=== PATIENT | female | born 1935 | race Caucasian/White ===

== ENCOUNTER 2018-10-20 01:56 | Outpatient (CLI) | payer MEDICARE, SELFPAY ==
[2018-10-20 08:10] LABS: Anion Gap 12.2 mmol/L (3-11); BUN 14 mg/dL (7-18); CO2 26.8 mmol/L (21.0-32.0); CREATININE 0.78 mg/dL (0.55-1.02); Calcium 8.9 mg/dL (8.5-10.1); Calculated LDL 97 mg/dL; Chloride 99 mmol/L (98-107); Cholesterol 207 mg/dL (50-200); Glucose 93 mg/dL (70-100); HDL Cholesterol 98 mg/dL (40-60); Potassium 4.1 mmol/L (3.5-5.1); Sodium 138 mmol/L (136-145); Triglyceride 63 mg/dL (30-150)
== END 2018-10-20 02:16 ==
PROVIDERS: PCP Internal Medicine; Visit Provider Internal Medicine
DX: I10 Essential (primary) hypertension (principal)
CPT/HCPCS: 36415; 80048; 80061; 83721

== ENCOUNTER 2018-11-21 13:48 | Emergency (ER) | payer MEDICARE, SELFPAY ==
[2018-11-21 13:54] VITALS: BP 120/50; PULSE 68; RESP 16; TEMP 36.5; O2SAT 99
--- NOTE | 2018-11-21 14:27 | W.ED.GENAD ---
Discharge Plan Disposition Patient Disposition: HOME Condition: Stable Discharge Details Chief Complaint: Orthopedic Clinical Impression: Fracture of proximal end of left humerus, Abrasion Primary Care Provider: Sherri Singh ED Provider: Lauryn Lu Home Meds and New Rx's Prescriptions: New tramadol 50 mg tablet 50 mg PO Q6H PRN (Reason: pain) Qty: 7 RF: 0 Continued multivitamin tablet 1 tab PO DAILY RF: 0 omega 2-qje-zsq-fish oil [Fish Oil] 1,000 mg (120 mg-180 mg) capsule 1 cap PO DAILY RF: 0 lecithin 1,200 MG capsule 1,360 mg PO DAILY RF: 0 jkdzlmbf-ffhf-usyuge-hyalur ac 1 EACH capsule 1,500 ea PO DAILY RF: 0 CALCIUM 600+MINERALS TABLET 1 EACH tablet 1 ea PO DAILY RF: 0 cholecalciferol (vitamin D3) 1,000 UNIT tablet 1,000 unit PO DAILY RF: 0 Varicella-Zoster Ge/As01b/Pf [Shingrix Vial Kit] 50 MCG INJ 50 mcg IM ONCE Qty: 1 RF: 1 clopidogrel [Plavix] 75 mg tablet 75 mg PO DAILY Qty: 90 RF: 3 lisinopril 10 mg tablet 10 mg PO DAILY Qty: 90 RF: 3 lovastatin 10 mg tablet 10 mg PO DAILY Qty: 90 RF: 3 Discharge Instructions Instructions: Abrasion (ED), Proximal Humerus Fracture (ED) Additional Instructions: Alternate Tylenol and Aleve as needed and directed for pain. Take the tramadol for pain not relieved with Tylenol or Aleve. Call Dr. Hutchinson on Friday morning to schedule a follow-up appointment for reevaluation within 1 week. Return immediately to the emergency department if you develop any worsening or new concerning symptoms. Referrals: Wolfgang Hutchinson MD [ [facility] STAFF PHYSICIAN] - Discharge Data Discharge Physician: Lauryn Lu Medical Decision Making 83-year-old female with a history of mitral valve prolapse, CVA who presents with left upper back pain that occurred after mechanical fall prior to arrival. She states she also hit her head on an aluminum door but denies any LOC or vomiting, headache, blurry vision or dizziness. She states she is mainly complaining of left upper back and shoulder pain. No evidence of head trauma. C-spine, T-spine, L-spine nontender. No chest or abdomen tenderness. She has tenderness along her entire scapula and left thoracic paraspinal region. No tenderness palpation of her left clavicle, left shoulder, or left upper arm. She is neurovascular intact. No focal deficits. No other extremity injury noted. Will send for left ribs and PA lateral chest as well as left scapula x-ray. Will give a dose of Tylenol. Patient is declining a chaotic pain medication. 1800 --x-rays reviewed and note a proximal humerus fracture. There is possibly a large shoulder joint effusion. X-rays reviewed with Dr. Hutchinson and he is recommending a CT shoulder to assess for dislocation, but likely this appears more consistent with fracture. Rib x-ray and also noted a mildly displaced left anterior 11th rib fracture. Patient had no tenderness palpation of this region so do not suspect fracture. Patient still complaining of some pain. She is refusing any narcotic pain medication. She states she takes Plavix but can occasionally take Aleve. We will give a dose of ibuprofen. 1900 --CT reviewed with Dr. Hutchinson and appears consistent with a subluxation and not dislocation. Recommends patient be placed in a sling and follow-up with him in 1 week. Patient had declined narcotic pain medication here. She did not want stronger narcotic pain medication. She was given a prescription for tramadol if needed. She was advised to call Dr. Hutchinson's office on Friday morning for follow-up and to return here anytime if worse. Medical Records Medical records reviewed: Yes I reviewed the patient's medical records. Imaging Data Radiologic Study: Radiologist's impression: XR Left Ribs EXAM DATE/TIME: 11/21/2018 3:13 PM CLINICAL HISTORY: 83 years old, female; Other: S/P fall onto L side, R/O FX L upper post ribs; Other: S/P fall onto L side, R/O L upper post ribs TECHNIQUE: Imaging protocol: XR Left ribs. Views: 2 views. COMPARISON: No relevant prior studies available. FINDINGS: Bones/joints: There is an acute proximal left humerus fracture present. There is slight irregularity of the left anterior 11th rib consistent with a mildly displaced fracture. Soft tissues: Normal. IMPRESSION: 1. Acute proximal left humerus fracture. Recommend radiographs of the left humerus. 2. Mildly displaced left anterior rib fracture. XR Left Scapula EXAM DATE/TIME: 11/21/2018 3:13 PM CLINICAL HISTORY: 83 years old, female; Other: S/P fall onto L side, R/O fracture TECHNIQUE: Imaging protocol: XR Left scapula, complete. COMPARISON: CR XR ribs LT w PA lat chest 11/21/2018 4:26 PM FINDINGS: Bones/joints: There is a proximal humerus fracture identified with the greater tuberosity is a separate fracture fragment. Recommend followup left humerus views. There is downward displacement of the humeral head in the joint space consistent with probable joint effusion. No definite scapula fractures identified. Soft tissues: Normal. IMPRESSION: Comminuted proximal left humeral fracture with the greater tuberosity is a separate fracture fragment and evidence of a large shoulder joint effusion. Followup radiographs of the left humerus are recommended. CT Left Upper Extremity Without Contrast, Shoulder EXAM DATE/TIME: 11/21/2018 6:21 PM CLINICAL HISTORY: 83 years old, female; Other: Proximal humerus fracture on x-ray; Additional info: Assess for dislocation TECHNIQUE: Imaging protocol: CT of the Left upper extremity without contrast was performed. Exam focused on the shoulder. Coronal and sagittal reformatted images were created and reviewed. Radiation optimization: All CT scans at this facility use at least one of these dose optimization techniques: automated exposure control; mA and/or kV adjustment per patient size (includes targeted exams where dose is matched to clinical indication); or iterative reconstruction. COMPARISON: No relevant prior studies available. FINDINGS: Bones/joints: There is hemarthrosis of the left shoulder joint with a fat fluid level. The effusion is causing downward displacement of the humeral head which is currently anatomically located. There degenerative changes of acromioclavicular joint. There is an impacted focally comminuted fracture of the proximal humerus with the greater tuberosity is a separate fracture fragment. Soft tissues: Normal. IMPRESSION: 1. There is an impacted focally comminuted fracture of the proximal humerus with the greater tuberosity as a separate fracture fragment. 2. There is a moderate to hemarthrosis with a fat fluid level in the joint space. The effusion is causing downward depression of the humeral head which abuts the glenoid labrum without evidence of current anterior/posterior dislocation. HPI General Mode of arrival: ambulatory. Date/Time Provider Initiated Documentation: 11/21/18 14:16. Limitations to Documentation: no limitations. Information obtained by: patient. HPI Narrative: Patient is an 83-year-old female with a history of CVA , high cholesterol, carotid endarterectomy who presents with to the ED with complaint of left upper back and shoulder pain that started after a fall today. Patient states she was walking upstairs when she missed the first step and fell forward hitting her forehead on an aluminum door. She states she then fell backward and hit her left back on a carpeted stair. She states she also sustained an abrasion to her right forearm and right knee but denies any pain in these areas. She denies headache, LOC, vomiting, blurry vision, neck pain, chest pain, abdominal pain. She states she has been able to ambulate after the fall. She has not taken anything for pain. She states her tetanus is up-to-date. Related Data Home Medications Medication Instructions Recorded Confirmed Calcium 600+Minerals Tablet 1 ea PO DAILY 08/20/12 11/21/18 pllqbolu-ijmf-bppbwb-hyalur ac 1,500 ea PO DAILY 08/20/12 11/21/18 lecithin 1,360 mg PO DAILY 08/20/12 11/21/18 cholecalciferol (vitamin D3) 1,000 unit PO DAILY 01/14/17 11/21/18 multivitamin 1 tab PO DAILY 08/25/18 11/21/18 omega 9-uvt-byj-fish oil 1,000 mg 1 cap PO DAILY 08/25/18 11/21/18 (120 mg-180 mg) capsule clopidogrel 75 mg tablet 75 mg PO DAILY #90 tab-cap 11/03/18 11/21/18 lisinopril 10 mg tablet 10 mg PO DAILY #90 tab-cap 11/03/18 11/21/18 lovastatin 10 mg tablet 10 mg PO DAILY #90 tab-cap 11/03/18 11/21/18 tramadol 50 mg PO Q6H PRN #7 tab 11/21/18 Previous Rx's Medication Instructions Recorded clopidogrel 75 mg tablet 75 mg PO DAILY #90 tab-cap 11/03/18 lisinopril 10 mg tablet 10 mg PO DAILY #90 tab-cap 11/03/18 lovastatin 10 mg tablet 10 mg PO DAILY #90 tab-cap 11/03/18 tramadol 50 mg PO Q6H PRN #7 tab 11/21/18 Allergies Allergy/AdvReac Type Severity Reaction Status Date / Time Influenza Virus Vaccines AdvReac sick for 2 Verified 11/21/18 13:58 wks following flu vaccine 02/24/18 General Stated Complaint: Orthopedic BRENDAN: 3 Review of Systems Review of Systems All systems reviewed & are unremarkable except as noted in HPI and below Constitutional Reports as per HPI, Denies chills and Denies fever(s) Eyes Denies blurry vision ENT Denies dizziness, Denies sore throat and Denies throat swelling Cardiovascular Denies chest pain and Denies dyspnea Respiratory Denies cough and Denies dyspnea Gastrointestinal Denies abdominal pain, Denies diarrhea and Denies vomiting Genitourinary Denies hematuria and Denies dysuria Musculoskeletal Denies back pain and Denies numbness Integumentary/Breasts Denies lesions and Denies rash Neurologic Denies dizziness, Denies focal weakness and Denies numbness Allergic/Immunologic Denies throat swelling PFS Medical History CVA (cerebral vascular accident) (Inactive 06/22/14) Essential hypertension (Inactive 07/13/14) Mitral valve prolapse (Inactive 07/11/11) Other and unspecified hyperlipidemia (Inactive 11/19/12) Surgical History Carotid endarterectomy Extraction of cataract (12/21/15) Extraction of cataract (01/04/16) Family History Father Heart disease Mother Stroke Social History Smoking/Tobacco Use Status: Never Alcohol Intake: never Drug use: Never Substance use type: does not use Adopted: No Caregiver/Support person: No Foster care: No Housing: house Number of Children: 2 number of grandchildren: 3 What type of physical activity do you participate in: walking and other Details: weights, squats, leg lifts Duration: 15-30 minutes/day Frequency: 5-6 times per week Working smoke detector in home: Yes Fire extinguisher in home: Yes Carbon monox detector in home: Yes Do you feel safe at home: Yes Victim of physical abuse: No Victim of emotional abuse: No Victim of sexual abuse: No Would you like helpful sources: No Exam Const General: cooperative, healthy appearing and no acute distress [facility] Head: normal to inspection, no palpable skull fracture, normocephalic and atraumatic Ears: hearing grossly normal bilaterally, external ears normal and TM's normal bilaterally General nose exam: external nose normal Face and sinus: normal facial exam Eyes General: appearance normal, both eyes and all related structures Pupils: PERRL EOM: EOM intact bilaterally Neck Neck: normal visual inspection and No submandibular swelling Lymphatic: no lymphadenopathy noted Chest Chest: normal inspection of the chest and no tenderness Resp Effort & Inspection: normal respiratory effort and able to speak in complete sentences Auscultation: clear to auscultation bilaterally Cardio Rate: regular rate Rhythm: regular rhythm GI Inspection: normal to inspection and no abdominal wall ecchymosis Palpation: soft, not firm, not rigid and nontender Auscultation: normal bowel sounds Back/Spine/Pelvis Cervical Spine: No cervical spinal tenderness Thoracic/Lumbar Spine: thoracic and lumbar spine normal to inspection, No thoracic spinal tenderness and No lumbar spinal tenderness Pelvis: no pain with anterior-posterior compression Skin General skin exam: no rashes or lesions noted Neuro General: alert, awake and oriented x3 Cognition: normal cognition Speech: speech normal Motor: muscle tone normal throughout Sensory Exam: no sensory deficits noted Extrem General: normal to inspection, full ROM, normal capillary refill, no calf tenderness bilaterally and no edema Shoulder/upper arm images: 1. Tenderness palpation along superior scapula, mid scapula as well as left thoracic paraspinal region. Other: No tenderness palpation of left anterior, lateral or posterior shoulder. No tenderness palpation of left upper arm. Remainder of left upper, right upper extremity as well as bilateral lower extremities within normal limits and without pain. 5 cm superficial abrasion noted to right medial forearm. No other bony deformity noted. 2 x 2 centimeter superficial abrasion noted to right anterior knee but no pain with range of motion or bony deformity. No ligamentous instability. Psych Appearance: grossly normal Mental Status: mental status grossly normal Speech and Movement: speech and movement normal Affect: normal affect Course Vital Signs Temperature 97.7 F 11/21/18 13:54 Pulse 68 11/21/18 13:54 Respiratory Rate 16 11/21/18 13:54 Blood Pressure 120/50 L 11/21/18 13:54 Pulse Oximetry 99 11/21/18 13:54 Temperature 97.7 F 11/21/18 13:54 Temperature Source Skin 11/21/18 13:54 Pulse 68 11/21/18 13:54 Respiratory Rate 16 11/21/18 13:54 Respiratory Effort Non-Labored 11/21/18 13:56 Blood Pressure 120/50 L 11/21/18 13:54 Pulse Oximetry 99 11/21/18 13:54 Pain Level 10 11/21/18 13:54 \
--- NOTE | 2018-11-21 15:11 | DI.RAD_ITS ---
SYMPTOMS/DIAGNOSIS: S/P FALL ONTO LT SIDE, ? FRACTURE LT UPPER POST RIBS LEFT RIBS: There is a question of nondisplaced fractures of the left tenth and eleventh ribs. No pneumothorax is seen. LEFT SCAPULA: There is a fracture of the proximal humerus which shows some comminution. The humeral head appears inferiorly positioned relative to the glenoid. There is also question of some deformity of the glenoid. The AC joint and clavicle appear intact. IMPRESSION: Proximal humeral fracture with question of dislocation vs subluxation.
[2018-11-21] MEDS: Acetaminophen 500 MG TAB 1000 MG PO (15:37)
--- NOTE | 2018-11-21 17:59 | DI.VRAD_ITS ---
EXAM: XR Left Scapula EXAM DATE/TIME: 11/21/2018 3:13 PM CLINICAL HISTORY: 83 years old, female; Other: S/P fall onto L side, R/O fracture TECHNIQUE: Imaging protocol: XR Left scapula, complete. COMPARISON: CR XR ribs LT w PA lat chest 11/21/2018 4:26 PM FINDINGS: Bones/joints: There is a proximal humerus fracture identified with the greater tuberosity is a separate fracture fragment. Recommend followup left humerus views. There is downward displacement of the humeral head in the joint space consistent with probable joint effusion. No definite scapula fractures identified. Soft tissues: Normal. IMPRESSION: Comminuted proximal left humeral fracture with the greater tuberosity is a separate fracture fragment and evidence of a large shoulder joint effusion. Followup radiographs of the left humerus are recommended. Dictated and Authenticated by: Doni Gordon MD. Ordering:MICHAEL Combs MD
--- NOTE | 2018-11-21 18:08 | DI.VRAD_ITS ---
EXAM: XR Left Ribs EXAM DATE/TIME: 11/21/2018 3:13 PM CLINICAL HISTORY: 83 years old, female; Other: S/P fall onto L side, R/O FX L upper post ribs; Other: S/P fall onto L side, R/O L upper post ribs TECHNIQUE: Imaging protocol: XR Left ribs. Views: 2 views. COMPARISON: No relevant prior studies available. FINDINGS: Bones/joints: There is an acute proximal left humerus fracture present. There is slight irregularity of the left anterior 11th rib consistent with a mildly displaced fracture. Soft tissues: Normal. IMPRESSION: 1. Acute proximal left humerus fracture. Recommend radiographs of the left humerus. 2. Mildly displaced left anterior rib fracture. Dictated and Authenticated by: Doni Gordon MD. Ordering:MICHAEL Combs MD
--- NOTE | 2018-11-21 18:19 | DI.CT_ITS ---
SYMPTOMS/DIAGNOSIS: PROXIMAL HUMERUS FRACTURE ON X-RAY CT OF THE LEFT SHOULDER: There is a fracture of the proximal humerus of the surgical neck. There is also comminution involving the greater tuberosity. There is some impaction of the fracture. The bones appear osteoporotic. There is inferior subluxation of the humeral head but no evidence of nena dislocation. There is some sclerosis of the glenoid which is degenerative. No glenoid fracture is seen. A hemarthrosis is noted. No pneumothorax is seen at the visualized portions of the lungs. IMPRESSION: Comminuted fracture of the proximal humerus with inferior subluxation of the humeral head.
[2018-11-21] MEDS: Ibuprofen 600 MG TAB PO (18:34)
--- NOTE | 2018-11-21 19:06 | DI.VRAD_ITS ---
EXAM: CT Left Upper Extremity Without Contrast, Shoulder EXAM DATE/TIME: 11/21/2018 6:21 PM CLINICAL HISTORY: 83 years old, female; Other: Proximal humerus fracture on x-ray; Additional info: Assess for dislocation TECHNIQUE: Imaging protocol: CT of the Left upper extremity without contrast was performed. Exam focused on the shoulder. Coronal and sagittal reformatted images were created and reviewed. Radiation optimization: All CT scans at this facility use at least one of these dose optimization techniques: automated exposure control; mA and/or kV adjustment per patient size (includes targeted exams where dose is matched to clinical indication); or iterative reconstruction. COMPARISON: No relevant prior studies available. FINDINGS: Bones/joints: There is hemarthrosis of the left shoulder joint with a fat fluid level. The effusion is causing downward displacement of the humeral head which is currently anatomically located. There degenerative changes of acromioclavicular joint. There is an impacted focally comminuted fracture of the proximal humerus with the greater tuberosity is a separate fracture fragment. Soft tissues: Normal. IMPRESSION: 1. There is an impacted focally comminuted fracture of the proximal humerus with the greater tuberosity as a separate fracture fragment. 2. There is a moderate to hemarthrosis with a fat fluid level in the joint space. The effusion is causing downward depression of the humeral head which abuts the glenoid labrum without evidence of current anterior/posterior dislocation. Dictated and Authenticated by: Doni Gordon MD. Ordering:MICHAEL Combs MD
[2018-11-21 22:26] VITALS: BP 120/50; PULSE 68; RESP 16; O2SAT 99
== END 2018-11-21 20:27 | disposition home or self-care (01) ==
PROVIDERS: Emergency Provider Physician Assistant; PCP Internal Medicine
DX: S42.252A Displaced fracture of greater tuberosity of left humerus, initial encounter for closed fracture (principal); S43.032A Inferior subluxation of left humerus, initial encounter; S80.211A Abrasion, right knee, initial encounter; S50.811A Abrasion of right forearm, initial encounter; W10.8XXA Fall (on) (from) other stairs and steps, initial encounter; M54.6 Pain in thoracic spine; I10 Essential (primary) hypertension
CPT/HCPCS: 99284; 71100; 73010; 73200; 99285; L3650

== ENCOUNTER 2018-12-01 10:10 | Outpatient (CLI) | payer MEDICARE, SELFPAY ==
--- NOTE | 2018-12-01 09:52 | DI.RAD_ITS ---
SYMPTOM/DIAGNOSIS: F/U HUMERAL FRACTURE LEFT SHOULDER: 12/01 Three views were obtained. The previously described fracture of the humeral head is again noted with increasing inferior subluxation vs dislocation in comparison with previous examination of 11/21/18.
== END 2018-12-01 10:30 ==
PROVIDERS: PCP Internal Medicine; Referring Provider Internal Medicine; Visit Provider Orthopaedic Surgery
DX: S42.202A Unspecified fracture of upper end of left humerus, initial encounter for closed fracture (principal); W10.8XXA Fall (on) (from) other stairs and steps, initial encounter
CPT/HCPCS: 99203; 99213; 99214; 73030

== ENCOUNTER 2018-12-22 12:47 | Outpatient (CLI) | payer MEDICARE, SELFPAY ==
--- NOTE | 2018-12-22 09:03 | DI.RAD_ITS ---
SYMPTOM/DIAGNOSIS: F/U FRACTURE LEFT SHOULDER: Comparison is made with 21 November 2018 and . A comminuted fracture of the humeral head is again noted. The humeral head is again noted to be situated beneath the glenoid, unchanged from the previous exam.
== END 2018-12-22 13:07 ==
PROVIDERS: PCP Internal Medicine; Referring Provider Internal Medicine; Visit Provider Orthopaedic Surgery
DX: S42.202A Unspecified fracture of upper end of left humerus, initial encounter for closed fracture (principal); X58.XXXA Exposure to other specified factors, initial encounter
CPT/HCPCS: 99213; 73030

== ENCOUNTER 2019-01-19 09:48 | Outpatient (CLI) | payer MEDICARE, SELFPAY ==
--- NOTE | 2019-01-19 09:11 | DI.RAD_ITS ---
EXAM: XR SHOULDER LT COMPLETE 2+V INDICATION: f/u. COMPARISON: XR shoulder LT complete 2+V from 12/22/2018 TECHNIQUE: 2D digital imaging was performed. FINDINGS: There is again seen a comminuted fracture of the proximal left humerus. There is no change in alignm ent of the fracture. There has been slight improvement in the degree of inferior subluxation of the humeral head relative to the glenoid since the prior examination. No new fractures or dislocations a re present. The bones are osteopenic. There are degenerative changes seen at the acromioclavicular joint.
== END 2019-01-19 10:08 ==
PROVIDERS: PCP Internal Medicine; Referring Provider Internal Medicine; Visit Provider Orthopaedic Surgery
DX: S42.202A Unspecified fracture of upper end of left humerus, initial encounter for closed fracture (principal); M85.88 Other specified disorders of bone density and structure, other site; X58.XXXA Exposure to other specified factors, initial encounter
CPT/HCPCS: 99213; 73030

== ENCOUNTER 2019-02-16 09:11 | Outpatient (CLI) | payer MEDICARE, SELFPAY ==
--- NOTE | 2019-02-16 08:47 | DI.RAD_ITS ---
EXAM: XR SHOULDER LT COMPLETE 2+V INDICATION: f/u of left proximal humerus fracture. COMPARISON: No exams were available for comparison TECHNIQUE: 2D digital imaging was performed. FINDINGS: There has been continued healing of the proximal left humeral fracture. No change in alignment of th e fracture components is noted. There is persistent inferior subluxation of the humeral head relativ e to the glenoid. This appears to have improved somewhat compared to the prior examination. No new fractures or dislocations are present. Degenerative changes are seen at the left shoulder. The bone s are osteopenic. IMPRESSION: Healing proximal left humeral fracture. Slight improvement in the inferior subluxation of the kassandra l head relative to the glenoid.
== END 2019-02-16 09:31 ==
PROVIDERS: PCP Internal Medicine; Referring Provider Internal Medicine; Visit Provider Orthopaedic Surgery
DX: S42.202D Unspecified fracture of upper end of left humerus, subsequent encounter for fracture with routine healing (principal); X58.XXXD Exposure to other specified factors, subsequent encounter
CPT/HCPCS: 99213; 73030

== ENCOUNTER 2019-11-02 04:28 | Outpatient (CLI) | payer MEDICARE, SELFPAY ==
[2019-11-02 07:30] LABS: HCT 38.1 % (36.0-46.0); Mean Corp. HGB Concentration 34.1 g/dL (32.0-36.0); Mean Corpuscular Volume 87.8 fL (80-95); Mean Platelet Volume 9.8 fL (8.0-11.0); Platelet Count 220 x1000/uL (130-400); RBC 4.34 m/cumm (4.00-5.20); RBC Distribution Width 12.8 % (11.7-14.6); White Blood Cell Count 4.14 k/cumm (4.4-10.8)
[2019-11-02 08:25] LABS: Anion Gap 8.4 mmol/L (3-11); BUN 13 mg/dL (7-18); CO2 27.6 mmol/L (21.0-32.0); CREATININE 0.85 mg/dL (0.55-1.02); Calcium 8.9 mg/dL (8.5-10.1); Calculated LDL 108 mg/dL (<100); Chloride 96 mmol/L (98-107); Cholesterol 213 mg/dL (<200); Glucose 98 mg/dL (74-106); HDL Cholesterol 91 mg/dL (40-60); Potassium 4.4 mmol/L (3.5-5.1); Sodium 132 mmol/L (136-145); TSH 7.64 uIU/mL (0.36-3.74); Triglyceride 73 mg/dL (<150); Vitamin B12 677 pg/mL (193-986)
== END 2019-11-02 04:48 ==
PROVIDERS: PCP Internal Medicine; Visit Provider Internal Medicine
DX: E78.00 Pure hypercholesterolemia, unspecified (principal); R23.1 Pallor; F41.9 Anxiety disorder, unspecified; I10 Essential (primary) hypertension
CPT/HCPCS: 36415; 80048; 80061; 85027; 82607; 84443

== ENCOUNTER 2020-01-11 02:28 | Outpatient (CLI) | payer MEDICARE, MEDICAID, SELFPAY ==
[2020-01-11 09:05] LABS: TSH (W/Ref FT4) 2.73 uIU/mL (0.36-3.74)
== END 2020-01-11 02:48 ==
PROVIDERS: PCP Internal Medicine; Visit Provider Internal Medicine
DX: E03.9 Hypothyroidism, unspecified (principal)
CPT/HCPCS: 36415; 84443

== ENCOUNTER 2020-10-13 02:29 | Outpatient (CLI) | payer MEDICARE, MEDICAID, SELFPAY ==
[2020-10-13 08:40] LABS: BUN 14 mg/dL (7-18); CREATININE 0.7 mg/dL (0.55-1.02); Calcium 8.9 mg/dL (8.5-10.1); Calculated LDL 90 mg/dL (<100); Chloride 98 mmol/L (98-107); Cholesterol 201 mg/dL (<200); Glucose 94 mg/dL (74-106); HDL Cholesterol 100 mg/dL (40-60); Potassium 4.2 mmol/L (3.5-5.1); Sodium 133 mmol/L (136-145); TSH 3.41 uIU/mL (0.36-3.74); Triglyceride 55 mg/dL (<150); Vitamin B12 668 pg/mL (193-986)
== END 2020-10-13 02:30 | disposition home or self-care (01) ==
LOC: LBO 02:29
PROVIDERS: PCP Internal Medicine; Visit Provider Internal Medicine
DX: I10 Essential (primary) hypertension (principal); E78.00 Pure hypercholesterolemia, unspecified; R53.83 Other fatigue
CPT/HCPCS: 36415; 80048; 80061; 82607; 84443

== ENCOUNTER 2021-09-07 02:05 | Outpatient (CLI) | payer MEDICARE, MEDICAID, SELFPAY ==
[2021-09-07 09:09] LABS: Anion Gap 8.9 mmol/L (3-11); BUN 13 mg/dL (7-18); CO2 29.1 mmol/L (21.0-32.0); CREATININE 0.8 mg/dL (0.55-1.02); Calcium 8.8 mg/dL (8.5-10.1); Calculated LDL 103 mg/dL (<100); Chloride 97 mmol/L (98-107); Cholesterol 226 mg/dL (<200); Glucose 92 mg/dL (74-106); HDL Cholesterol 113 mg/dL (40-60); Potassium 4.4 mmol/L (3.5-5.1); Sodium 135 mmol/L (136-145); TSH 3.49 uIU/mL (0.36-3.74); Triglyceride 51 mg/dL (<150)
== END 2021-09-07 02:06 | disposition home or self-care (01) ==
LOC: LBO 02:06
PROVIDERS: PCP Internal Medicine; Referring Provider Internal Medicine; Visit Provider Internal Medicine
DX: I10 Essential (primary) hypertension (principal); E78.00 Pure hypercholesterolemia, unspecified; E03.9 Hypothyroidism, unspecified
CPT/HCPCS: 36415; 80048; 80061; 84443

== ENCOUNTER 2022-09-13 01:42 | Outpatient (CLI) | payer MEDICARE, MEDICAID, SELFPAY ==
[2022-09-13 07:56] LABS: Anion Gap 8.5 mmol/L (3-11); BUN 12 mg/dL (7-18); CO2 28.5 mmol/L (21.0-32.0); CREATININE 0.7 mg/dL (0.55-1.02); Calculated LDL 113 mg/dL (<100); Chloride 90 mmol/L (98-107); Cholesterol 251 mg/dL (<200); Estimated GFR 84.17 (mL/min/1.73m2); Glucose 102 mg/dL (74-106); HDL Cholesterol 129 mg/dL (40-60); Potassium 3.7 mmol/L (3.5-5.1); Sodium 127 mmol/L (136-145); TSH (W/Ref FT4) 4.22 uIU/mL (0.36-3.74); Triglyceride 46 mg/dL (<150)
[2022-09-13 08:14] LABS: FREE T4 1.08 ng/dL (0.76-1.46)
== END 2022-09-13 01:43 | disposition home or self-care (01) ==
LOC: LBO 01:42
PROVIDERS: PCP Nurse Practitioner Adult Health; Visit Provider Nurse Practitioner Adult Health
DX: E03.9 Hypothyroidism, unspecified (principal); I10 Essential (primary) hypertension
CPT/HCPCS: 36415; 80048; 80061; 84439; 84443

== ENCOUNTER 2022-09-23 09:09 | Outpatient (REF) | payer MEDICARE, MEDICAID, SELFPAY ==
[2022-09-23 17:41] LABS: Anion Gap 6.7 mmol/L (3-11); BUN 13 mg/dL (7-18); CO2 29.3 mmol/L (21.0-32.0); CREATININE 0.7 mg/dL (0.55-1.02); Chloride 91 mmol/L (98-107); Estimated GFR 84.17 (mL/min/1.73m2); Glucose 87 mg/dL (74-106); Potassium 4.5 mmol/L (3.5-5.1); Sodium 127 mmol/L (136-145)
== END 2022-09-23 09:10 | disposition home or self-care (01) ==
LOC: LBN 09:09
PROVIDERS: PCP Nurse Practitioner Adult Health; Visit Provider Nurse Practitioner Adult Health
DX: E87.1 Hypo-osmolality and hyponatremia (principal)
CPT/HCPCS: 80048

== ENCOUNTER 2022-11-03 07:16 | Observation (INO) | payer MEDICARE, MEDICAID, SELFPAY ==
[2022-11-03] VITALS (62 sets, daily range): BP systolic 44–229; BP diastolic 17–95; PULSE 63–100; RESP 12–38; TEMP 36.2–37.3; O2SAT 91–99
--- NOTE | 2022-11-03 07:30 | RT.EKG_ITS ---
APPROVED REPORT Exam: Resting ECG Reason for Exam: GI BLEED Patient Location: E HR:69 bpm ECG Measurements Heart Rate 69 AXIS TX 155 P -8 QRSd 107 QRS -49 QT 430 T 51 QTc 460 Conclusion Sinus rhythm was sinus arrhythmia Rate 60's-70's appropriate intervals LVH with secondary repolarization abnormality no ST segement or T wave abnormalities to suggest occlusive [place]
[2022-11-03] MEDS: Normal Saline 1,000 ML 1000 ML IV (07:53)
[2022-11-03 08:01] LABS: Abs Immature Grans 0.01 10^3/uL (0.0-0.06); Absolute Basophil Count 0.02 10^3/uL (0.0-0.2); Absolute Eosinophil Count 0.07 10^3/uL (0.0-0.7); Absolute Monocyte Count 0.36 10^3/uL (0.1-0.8); Absolute Neutrophil Count 2.39 10^3/uL (1.2-6.7); Basophils % 0.5; Eosinophils % 1.8; HCT 35.4 % (36.0-46.0); HGB 12.1 g/dL (11.2-15.7); Immature Grans % 0.3; Lymphocytes % 27.8; MCH 30.6 pg (27.0-33.0); MCHC 34.2 % (32.0-36.0); MCV 90 fL (80-95); MPV 9.5 fL (8.0-11.0); Monocytes % 9.1; Neutrophils % 60.5; Platelet Count 214 10^3/uL (130-400); RBC 3.95 10^6/uL (3.93-5.22); RDW 12.9 % (11.7-14.6); RDW-SD 42.6 fL; WBC 3.95 10^3/uL (4.4-10.8)
[2022-11-03 08:13] LABS: INR 0.9 (0.9-1.1); PTT Activated 33.1 sec (21.5-31.9); Prothrombin Time 9.5 sec (9.3-11.0)
[2022-11-03 08:20] LABS: ALT 27 U/L (14-59); AST 35 U/L (15-37); Albumin 3.7 g/dL (3.4-5.0); Alkaline Phosphatase 96 U/L (46-116); Anion Gap 8.1 mmol/L (3-11); BUN 11 mg/dL (7-18); Bilirubin, Total 0.7 mg/dL (0.2-1.0); CO2 27.9 mmol/L (21.0-32.0); CREATININE 0.8 mg/dL (0.55-1.02); Calcium 8.8 mg/dL (8.5-10.1); Chloride 100 mmol/L (98-107); Estimated GFR 71.27 (mL/min/1.73m2); Glucose 100 mg/dL (74-106); Magnesium 1.7 mg/dL (1.8-2.4); Sodium 136 mmol/L (136-145); Total Protein 6.8 g/dL (6.4-8.2)
--- NOTE | 2022-11-03 09:15 | DI.CT_ITS ---
Exam(s) CT ABDOMEN PELVIS W EXAM: CT ABDOMEN PELVIS W CLINICAL HISTORY: bright red blood PA, mild LLQ tenderness. TECHNIQUE: Imaging Protocol: Axial computed tomography images with coronal and sagittal reformatted images were created and reviewed CONTRAST MATERIAL: Intravenous: Omnipaque-350 100cc Oral: None COMPARISON: No exams were available for comparison FINDINGS: VISUALIZED LUNG BASES: Small left pleural effusion.. Heavy calcification of the mitral valve annulus . No pericardial effusion. ABDOMEN: There is no ascites. LIVER: There are no focal hepatic lesions evident. No dilated intrahepatic ducts. GALLBLADDER/BILIARY: No obvious gallbladder pathology. CBD is not dilated. PANCREAS: No evidence of pancreatic mass nor dilatation of the pancreatic duct. SPLEEN: Spleen is not enlarged. No obvious intrasplenic lesions. Splenic and portal veins are paten t. ADRENALS: There are no significant adrenal masses. KIDNEYS:No cysts evident. No solid renal masses. No calculi nor hydronephrosis.. ABDOMINAL AORTA: Abdominal aorta is calcified but not enlarged. Retroaortic left renal vein noted, s een approximately 5 percent of the general population. LYMPH NODES:There is no retroperitoneal nor paraaortic adenopathy. ABDOMINAL WALL: No evidence of significant anterior abdominal wall nor inguinal hernia. GI: There is no evidence of bowel obstruction, free air, nor abscess. PELVIS: GI: No evidence of appendicitis.Extensive sigmoid diverticulosis. No obvious acute diverticulitis. No free fluid. LYMPH NODES: There is no intrapelvic nor inguinal adenopathy. REPRODUCTIVE: Atrophic uterus. No obvious adnexal masses. URINARY BLADDER: No calculi nor obvious masses evident OSSEOUS: No fractures and no significant osseous lesions. Multilevel chronic degenerative disc disease. IMPRESSION: 1. Sigmoid diverticulosis. No obvious acute diverticulitis. 2. Small left pleural effusion. RADIATION DOSE DELIVERED: 559.76mGy.cm Total DLP DATA REPOSITORY: All CT scans at this facility are submitted to the National Radiology Data Registry (NRDR) Dose Index Registry (DIR) with the [employer] (A[employer]). RADIATION OPTIMIZATION: All CT scans at this facility use at least one of these dose optimization te chniques: automated exposure control; mA and/or kV adjustment per patient size (includes targeted exa ms where dose is matched to clinical indication); or iterative reconstruction.
--- NOTE | 2022-11-03 09:22 | W.ED.GENAD ---
Discharge Plan Disposition Patient Disposition: Admit to [facility] Condition: Stable Discharge Details Clinical Impression: Acute GI bleeding Primary Care Provider: Kaci Leigh ED Provider: Cherry Curtis Home Meds and New Rx's Prescriptions: No Action multivitamin tablet 1 tab PO DAILY omega 6-bdu-rnu-fish oil [Fish Oil] 1,000 mg (120 mg-180 mg) capsule 1 cap PO DAILY (DME) Pill Splitter See Rx Instructions .Route .MEDSUPPLY Qty: 1 2RF Rx Instructions: Please dispense to use to cut pills in half. levothyroxine 25 mcg tablet 25 mcg PO DAILY Qty: 90 3RF Rx Instructions: Take on an empty stomach 30-min prior to other meds/food lisinopril 10 mg tablet 10 mg PO DAILY Qty: 90 0RF Rx Instructions: New RX for BP 09/23/2022 lecithin 1,200 MG capsule 1,360 mg PO DAILY qanxtfom-qtbq-fporhi-hyalur ac 1 EACH capsule 1,500 ea PO DAILY CALCIUM 600+MINERALS TABLET 1 EACH tablet 1 ea PO DAILY cholecalciferol (vitamin D3) 1,000 UNIT tablet 1,000 unit PO DAILY clopidogrel [Plavix] 75 mg tablet 37.5 mg PO DAILY MDD 75mg/24h Qty: 90 3RF Medical Decision Making 87yo F on eliquis for prior CVA, hx of HTN, hyperthyroid, presenting for bright red blood per rectum x 1 day. No nausea, vomiting, or abdominal pain. Transient lightheadedness while on the toilet, since resolved. Vital signs and physical exam reassuring, minimal LLQ abdominal tenderness with no rebound or guarding. Is hypertensive, will give home medications. Labs reviewed, CBC & CMP reassuring, Hg 12.1 at this time. Would not transfuse. Low suspicion for surgical intraabdominal process, suspect likely lower GI bleed. CT independently reviewed, agree with teleradiology read, diverticulosis. On reassessment she remains well appearing, no tachycardia or hypotension, no further bleeding. Given age, anticoaulation, and high risk for decompensation should she re-bleed, warrants overnight observation. Surgery consulted for possible colonoscopy, accepted to medicine service and awaiting transfer to the floor. Imaging Data Radiologic Study: Radiologist's impression: 1. SIgmoid colon diverticulosis. Mild constipation 2. bilateral small pleural effusions 3. complete atelectasis left lower lobe 4. nodular thickening adrenal glands. Lab Data Lab results reviewed: Yes I reviewed the patient's lab results. Lab results narrative: Laboratory Tests Range/Units 11/03/22 11/03/22 11/03/22 07:47 07:47 07:47 WBC (4.4-10.8) 10^3/uL 3.95 L RBC (3.93-5.22) 10^6/uL 3.95 Hgb (11.2-15.7) g/dL 12.1 Hct (36.0-46.0) % 35.4 L MCV (80-95) fL 90 MCH (27.0-33.0) pg 30.6 MCHC (32.0-36.0) % 34.2 RDW (11.7-14.6) % 12.9 Plt Count (130-400) 10^3/uL 214 MPV (8.0-11.0) fL 9.5 Immature Gran % 0.3 Neutrophils % 60.5 Lymphocytes % 27.8 Monocytes % 9.1 Eosinophils % 1.8 Basophils % 0.5 Nucleated RBC % (0.0-0.3) % 0.0 Absolute Neutrophils (1.2-6.7) 10^3/uL 2.39 Absolute Lymphocytes (1.2-3.4) 10^3/uL 1.10 L Absolute Monocytes (0.1-0.8) 10^3/uL 0.36 Absolute Eosinophils (0.0-0.7) 10^3/uL 0.07 Absolute Basophils (0.0-0.2) 10^3/uL 0.02 PT (9.3-11.0) sec INR (0.9-1.1) APTT Cancelled Sodium (136-145) mmol/L 136 Potassium (3.5-5.1) mmol/L 4.0 Chloride (98-107) mmol/L 100 Carbon Dioxide (21.0-32.0) mmol/L 27.9 Anion Gap (3-11) mmol/L 8.1 BUN (7-18) mg/dL 11 Creatinine (0.55-1.02) mg/dL 0.8 Est GFR (CKD-EPI 2020) (mL/min/1.73m2) 71.27 Glucose (74-106) mg/dL 100 Calcium (8.5-10.1) mg/dL 8.8 Magnesium (1.8-2.4) mg/dL 1.7 L Total Bilirubin (0.2-1.0) mg/dL 0.7 AST (15-37) U/L 35 ALT (14-59) U/L 27 Alkaline Phosphatase (46-116) U/L 96 Total Protein (6.4-8.2) g/dL 6.8 Albumin (3.4-5.0) g/dL 3.7 Patient ABO/Rh Antibody Screen Range/Units 11/03/22 11/03/22 07:47 07:47 WBC (4.4-10.8) 10^3/uL RBC (3.93-5.22) 10^6/uL Hgb (11.2-15.7) g/dL Hct (36.0-46.0) % MCV (80-95) fL MCH (27.0-33.0) pg MCHC (32.0-36.0) % RDW (11.7-14.6) % Plt Count (130-400) 10^3/uL MPV (8.0-11.0) fL Immature Gran % Neutrophils % Lymphocytes % Monocytes % Eosinophils % Basophils % Nucleated RBC % (0.0-0.3) % Absolute Neutrophils (1.2-6.7) 10^3/uL Absolute Lymphocytes (1.2-3.4) 10^3/uL Absolute Monocytes (0.1-0.8) 10^3/uL Absolute Eosinophils (0.0-0.7) 10^3/uL Absolute Basophils (0.0-0.2) 10^3/uL PT (9.3-11.0) sec 9.5 INR (0.9-1.1) 0.9 APTT 33.1 H Sodium (136-145) mmol/L Potassium (3.5-5.1) mmol/L Chloride (98-107) mmol/L Carbon Dioxide (21.0-32.0) mmol/L Anion Gap (3-11) mmol/L BUN (7-18) mg/dL Creatinine (0.55-1.02) mg/dL Est GFR (CKD-EPI 2020) (mL/min/1.73m2) Glucose (74-106) mg/dL Calcium (8.5-10.1) mg/dL Magnesium (1.8-2.4) mg/dL Total Bilirubin (0.2-1.0) mg/dL AST (15-37) U/L ALT (14-59) U/L Alkaline Phosphatase (46-116) U/L Total Protein (6.4-8.2) g/dL Albumin (3.4-5.0) g/dL Patient ABO/Rh A Negative Antibody Screen NEGATIVE HPI General Date/Time Provider Initiated Documentation: 11/03/22 07:30. Limitations to Documentation: no limitations. Information obtained by: patient and family. HPI Narrative: 87yo F on eliquis, hx of HTN, hyperthyroid, presenting for bright red blood per rectum. This morning had three bowel movements with bright red blood, multiple grape-sized clots. Manter lightheaded at the time, this has since resolved. No prior history of this in the past. No abdominal pain, nausea, or vomiting. Normal BM yesterday. Ambulated to the bathroom in the ED with no further bleeding and no lightheadedness. She is otherwise in her usual state of health with no fevers, chills, rash, dysuria, hematuria, chest pain, shortness of breath, or other concerns. Related Data Home Medications Medication Instructions Recorded Confirmed Calcium 600+Minerals Tablet 1 ea PO DAILY 08/20/12 11/03/22 glucosamin 375 mg-chond 300 1,500 ea PO DAILY 08/20/12 11/03/22 mg-collagen 50 mg-hyaluronic acid 2 mg cap lecithin 1,200 mg capsule 1,360 mg PO DAILY 08/20/12 11/03/22 cholecalciferol (vitamin D3) 25 1,000 unit PO DAILY 01/14/17 11/03/22 mcg (1,000 unit) tablet multivitamin 1 tab PO DAILY 08/25/18 11/03/22 omega 0-irh-ohr-fish oil 1,000 mg 1 cap PO DAILY 08/25/18 11/03/22 (120 mg-180 mg) capsule (Fish Oil) Pill Splitter #1 ea 02/05/22 11/03/22 levothyroxine 25 mcg tablet 25 mcg PO DAILY #90 tabs 09/23/22 11/03/22 lisinopril 10 mg tablet 10 mg PO DAILY #90 tabs 09/23/22 11/03/22 clopidogrel 75 mg tablet (Plavix) 37.5 mg PO DAILY patient decreased 10/16/22 11/03/22 dose 02/06/22 #90 tab-caps Previous Rx's Medication Instructions Recorded Pill Splitter #1 ea 02/05/22 levothyroxine 25 mcg tablet 25 mcg PO DAILY #90 tabs 09/23/22 lisinopril 10 mg tablet 10 mg PO DAILY #90 tabs 09/23/22 clopidogrel 75 mg tablet (Plavix) 37.5 mg PO DAILY patient decreased 10/16/22 dose 02/06/22 #90 tab-caps Allergies Allergy/AdvReac Type Severity Reaction Status Date / Time Influenza Virus Vaccines AdvReac sick for 2 Verified 11/03/22 07:22 wks following flu vaccine 02/24/18 General Stated Complaint: GI Bleed BRENDAN: 3 Review of Systems Narrative: see HPI PFSH All Active Problems (Updated 11/03/22 @ 13:50 by Maribell Ashley NP) GI bleeding (Chronic) Hyponatremia (Acute) History of stroke (Chronic ~2014) Occurred while taking ASA, so switch to Plavix Raynaud phenomenon (Chronic) Hypothyroidism (Chronic) Essential hypertension (Chronic 07/13/14) Osteoporosis, unspecified (Chronic 11/19/12) Never treated with bisphosphonates per pt Carotid artery stenosis (Acute 07/11/11) R-sided [place]arte[place] [facility] [place] Medical History Abnormal liver function (12/04/12) Anxiety Closed fracture of left proximal humerus (11/21/18) CVA (cerebral vascular accident) (06/22/14) Diverticulosis of small intestine (07/11/11) Mitral valve prolapse (07/11/11) Other and unspecified hyperlipidemia (11/19/12) Statin-controlled Surgical History Carotid endarterectomy Extraction of cataract (12/21/15) Dr. Marla Nam Right eye Dr. Marla Nam left eye Extraction of cataract (01/04/16) Dr. Marla Nam Right eye Dr. Marla Nam left eye Family History Father , [place] at age 65. Heart disease Mother , cva at age 93. Stroke Social History Smoking/Tobacco Use Status: Never Smoking risk assessment performed?: Yes Alcohol Intake: former Drug use: Never Substance use type: does not use Adopted: No Caregiver/Support person: No Foster care: No Housing: house Number of Children: 2 number of grandchildren: 3 Current gender identity: female What is your relationship status?: Panel score (0-1 are the most socially isolated patients): 0 What type of physical activity do you participate in: walking and other Details: weights, squats, leg lifts Duration: 15-30 minutes/day Frequency: 5-6 times per week Seatbelt use: always Drive intox or ride w/intox 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 Exam Narrative Exam Narrative: General: Alert, well appearing, well nourished, in no acute distress. Head: Normocephalic, atraumatic Neck: Trachea midline, Neck supple. ENT: MMM. No oropharygeal lesions or exudate. Cardiac: RRR, no murmurs appreciated Resp: No respiratory distress. CTAB. Abd: Soft, non-distended, slight LLQ tenderness with no rebound or guarding. : No suprapubic tenderness. No CVA tenderness. Extremities: No deformities. No peripheral edema. Neurologic: GCS 15. Moves all extremities freely against gravity Course Vital Signs Vital signs: Vital Signs Temperature 36.2 C L 11/03/22 07:18 Pulse 85 11/03/22 07:18 Respiratory Rate 16 11/03/22 07:18 Blood Pressure 197/77 H 11/03/22 07:18 Pulse Oximetry 99 11/03/22 07:18 Temperature 36.2 C L 11/03/22 07:18 Temperature Source Skin 11/03/22 07:18 Pulse 64 11/03/22 08:45 Pulse 64 11/03/22 08:50 Respiratory Rate 15 11/03/22 08:50 Respiratory Effort Normal, Non-Labored 11/03/22 07:30 Blood Pressure 200/84 H 11/03/22 08:45 Blood Pressure Mean 115 11/03/22 08:45 Blood Pressure Position Sitting 11/03/22 07:18 Pulse Oximetry 99 11/03/22 07:18 Oxygen Delivery Method Room Air 11/03/22 07:18 Oxygen Flow Rate 0 11/03/22 07:18 Pain Level 0 11/03/22 07:18 Lab/Test Results Lab/Test Results: Laboratory Tests Range/Units 11/03/22 11/03/22 11/03/22 07:47 07:47 07:47 WBC (4.4-10.8) 10^3/uL 3.95 L RBC (3.93-5.22) 10^6/uL 3.95 Hgb (11.2-15.7) g/dL 12.1 Hct (36.0-46.0) % 35.4 L MCV (80-95) fL 90 MCH (27.0-33.0) pg 30.6 MCHC (32.0-36.0) % 34.2 RDW (11.7-14.6) % 12.9 Plt Count (130-400) 10^3/uL 214 MPV (8.0-11.0) fL 9.5 Immature Gran % 0.3 Neutrophils % 60.5 Lymphocytes % 27.8 Monocytes % 9.1 Eosinophils % 1.8 Basophils % 0.5 Nucleated RBC % (0.0-0.3) % 0.0 Absolute Neutrophils (1.2-6.7) 10^3/uL 2.39 Absolute Lymphocytes (1.2-3.4) 10^3/uL 1.10 L Absolute Monocytes (0.1-0.8) 10^3/uL 0.36 Absolute Eosinophils (0.0-0.7) 10^3/uL 0.07 Absolute Basophils (0.0-0.2) 10^3/uL 0.02 PT (9.3-11.0) sec INR (0.9-1.1) APTT Cancelled Sodium (136-145) mmol/L 136 Potassium (3.5-5.1) mmol/L 4.0 Chloride (98-107) mmol/L 100 Carbon Dioxide (21.0-32.0) mmol/L 27.9 Anion Gap (3-11) mmol/L 8.1 BUN (7-18) mg/dL 11 Creatinine (0.55-1.02) mg/dL 0.8 Est GFR (CKD-EPI 2020) (mL/min/1.73m2) 71.27 Glucose (74-106) mg/dL 100 Calcium (8.5-10.1) mg/dL 8.8 Magnesium (1.8-2.4) mg/dL 1.7 L Total Bilirubin (0.2-1.0) mg/dL 0.7 AST (15-37) U/L 35 ALT (14-59) U/L 27 Alkaline Phosphatase (46-116) U/L 96 Total Protein (6.4-8.2) g/dL 6.8 Albumin (3.4-5.0) g/dL 3.7 Patient ABO/Rh Antibody Screen Range/Units 11/03/22 11/03/22 07:47 07:47 WBC (4.4-10.8) 10^3/uL RBC (3.93-5.22) 10^6/uL Hgb (11.2-15.7) g/dL Hct (36.0-46.0) % MCV (80-95) fL MCH (27.0-33.0) pg MCHC (32.0-36.0) % RDW (11.7-14.6) % Plt Count (130-400) 10^3/uL MPV (8.0-11.0) fL Immature Gran % Neutrophils % Lymphocytes % Monocytes % Eosinophils % Basophils % Nucleated RBC % (0.0-0.3) % Absolute Neutrophils (1.2-6.7) 10^3/uL Absolute Lymphocytes (1.2-3.4) 10^3/uL Absolute Monocytes (0.1-0.8) 10^3/uL Absolute Eosinophils (0.0-0.7) 10^3/uL Absolute Basophils (0.0-0.2) 10^3/uL PT (9.3-11.0) sec 9.5 INR (0.9-1.1) 0.9 APTT 33.1 H Sodium (136-145) mmol/L Potassium (3.5-5.1) mmol/L Chloride (98-107) mmol/L Carbon Dioxide (21.0-32.0) mmol/L Anion Gap (3-11) mmol/L BUN (7-18) mg/dL Creatinine (0.55-1.02) mg/dL Est GFR (CKD-EPI 2020) (mL/min/1.73m2) Glucose (74-106) mg/dL Calcium (8.5-10.1) mg/dL Magnesium (1.8-2.4) mg/dL Total Bilirubin (0.2-1.0) mg/dL AST (15-37) U/L ALT (14-59) U/L Alkaline Phosphatase (46-116) U/L Total Protein (6.4-8.2) g/dL Albumin (3.4-5.0) g/dL Patient ABO/Rh A Negative Antibody Screen NEGATIVE
[2022-11-03] MEDS: Normal Saline - Diluent 50 ML VIAL IJ (10:21)
[2022-11-03] MEDS: Normal Saline Flush 10 ML SYR IVP ×2 (10:21→14:59)
[2022-11-03] MEDS: Omnipaque 350 MG/ML 100 ML BTL IJ (10:22)
--- NOTE | 2022-11-03 11:03 | DI.VRAD_ITS ---
PROCEDURE INFORMATION: Exam: CT Abdomen And Pelvis With Contrast Exam date and time: 11/03/2022 10:33 AM Age: 87 years old Clinical indication: Other: Bright red blood pr, mild llq tenderness TECHNIQUE: Imaging protocol: Computed tomography of the abdomen and pelvis with contrast. Radiation optimization: All CT scans at this facility use at least one of these dose optimization techniques: automated exposure control; mA and/or kV adjustment per patient size (includes targeted exams where dose is matched to clinical indication); or iterative reconstruction. Contrast material: OMNIPAQUE 350; Contrast volume: 100 ml; Contrast route: INTRAVENOUS (IV); COMPARISON: CR XR scapula LT 11/21/2018 4:31 PM FINDINGS: Lungs: Bilateral lower lobe atelectasis. Confluent atelectasis left lower lobe posterior and medial. Pleural spaces: Small bilateral pleural effusions. Heart: Mitral valve annulus calcifications. Coronary arteries: Calcified coronary artery disease. Liver: Normal. No mass. Gallbladder and bile ducts: Normal. No calcified stones. No ductal dilation. Pancreas: Normal. No ductal dilation. Spleen: Normal. No splenomegaly. Adrenal glands: Nodular thickening of the adrenal glands. Kidneys and ureters: Normal. No hydronephrosis. Stomach and bowel: Mild constipation. No small bowel dilatation or obstruction. Sigmoid colon diverticulosis. Appendix: No evidence of appendicitis. Intraperitoneal space: Unremarkable. No free air. No significant fluid collection. Vasculature: Unremarkable. No abdominal aortic aneurysm. Lymph nodes: Unremarkable. No enlarged lymph nodes. Urinary bladder: Unremarkable as visualized. Reproductive: Atrophic uterus. No adnexal mass. Bones/joints: Thoracolumbar scoliosis. Bilateral hip arthropathy. Advanced multilevel thoracic and lumbar spine disc degeneration. No acute fractures. Soft tissues: Unremarkable. IMPRESSION: 1. Sigmoid colon diverticulosis. Mild constipation. 2. Bilateral small pleural effusions. 3. Complete atelectasis left lower lobe. 4. Nodular thickening of the adrenal glands. Dictated and Authenticated by: Alexis Lynn MD. Ordering:LATRICIA Carey MD
[2022-11-03] MEDS: Lisinopril 10 MG TAB PO (12:00)
--- NOTE | 2022-11-03 13:47 | HPE_ITS ---
Date of service: 11/03/22 Time of Service: 13:47 Assessment and Plan Assessment and plan (1) GI bleeding: Status: Acute Assessment and plan: surgery evaluation in ED, no surgical procedure planned. outpatient follow up hold plavix today and tomorrow. trend H&H and vitals closely. (2) History of stroke: Status: Chronic Assessment and plan: no residual deficits, stable and at baseline hold plavix in setting of lower gi bleeding. (3) Hypothyroidism: Status: Chronic Assessment and plan: continue levothyroxine TSH in august 2022 was 4.22 Qualifiers: Hypothyroidism type: acquired Qualified Code(s): E03.9 - Hypothyroidism, unspecified (4) Essential hypertension: Status: Chronic Assessment and plan: blood pressure poorly controlled in the 200's/80's. reportedly with white coat syndrome, denies symptoms continue lisinopril while closely monitoring. will give a one time hydralazine dose and monitor discussed with Dr Briceño History of Present Illness History of Present Illness Chief Complaint: gi bleed Narrative: presents to ED with evaluation of onset of gi bleeding today, no similar history, no lightheadedness, dizziness, cp, sob or syncope. She takes plavix for history of CVA, dose was cut in half over the winter secondary to nose bleeds, there has been no nosebleeds since. She has no abdominal pain, CT scan shows diverticulosis with no evidence of diverticulitis. She's had 2 previous colonoscopies, last when she was probably in her 70's, reported as unremarkable with no further monitoring needed. she was evaluated by general surgery who indicates no surgical intervention at this time as bleeding has stopped. He recommends outpatient follow up. Hospitalist was contacted to observe her overnight. Review of Systems All systems reviewed & are unremarkable except as noted in HPI and below PFSH All Active Problems (Updated 11/03/22 @ 14:08 by Derek Jeronimo MD) GI bleeding (Acute) Hyponatremia (Acute) History of stroke (Chronic ~2014) Occurred while taking ASA, so switch to Plavix Raynaud phenomenon (Chronic) Hypothyroidism (Chronic) Essential hypertension (Chronic 07/13/14) Osteoporosis, unspecified (Chronic 11/19/12) Never treated with bisphosphonates per pt Carotid artery stenosis (Acute 07/11/11) [place]-sided [place]arte[place] [facility] [place] Medical History Abnormal liver function (12/04/12) Anxiety Closed fracture of left proximal humerus (11/21/18) CVA (cerebral vascular accident) (06/22/14) Diverticulosis of small intestine (07/11/11) Mitral valve prolapse (07/11/11) Other and unspecified hyperlipidemia (11/19/12) Statin-controlled Surgical History Carotid endarterectomy Extraction of cataract (12/21/15) Dr. Marla Nam Right eye Dr. Marla Nam left eye Extraction of cataract (01/04/16) Dr. Marla Nam Right eye Dr. Marla Nam left eye Family History Father , [place] at age 65. Heart disease Mother , cva at age 93. Stroke Social History Smoking/Tobacco Use Status: Never Smoking risk assessment performed?: Yes Alcohol Intake: former Drug use: Never Substance use type: does not use Adopted: No Caregiver/Support person: No Foster care: No Housing: house Number of Children: 2 number of grandchildren: 3 Current gender identity: female What is your relationship status?: Panel score (0-1 are the most socially isolated patients): 0 What type of physical activity do you participate in: walking and other Details: weights, squats, leg lifts Duration: 15-30 minutes/day Frequency: 5-6 times per week Seatbelt use: always Drive intox or ride w/intox 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 Meds Allergies and Home Medications Allergies Allergy/AdvReac Type Severity Reaction Status Date / Time Influenza Virus Vaccines AdvReac sick for 2 Verified 11/03/22 07:22 wks following flu vaccine 02/24/18 Home Medications Medication Instructions Recorded Confirmed Type Calcium 600+Minerals Tablet 1 ea PO DAILY 08/20/12 11/03/22 History glucosamin 375 mg-chond 300 1,500 ea PO DAILY 08/20/12 11/03/22 History mg-collagen 50 mg-hyaluronic acid 2 mg cap lecithin 1,200 mg capsule 1,360 mg PO DAILY 08/20/12 11/03/22 History cholecalciferol (vitamin D3) 25 1,000 unit PO DAILY 01/14/17 11/03/22 History mcg (1,000 unit) tablet multivitamin 1 tab PO DAILY 08/25/18 11/03/22 History omega 2-pvo-nqg-fish oil 1,000 mg 1 cap PO DAILY 08/25/18 11/03/22 History (120 mg-180 mg) capsule (Fish Oil) Pill Splitter #1 ea 02/05/22 11/03/22 Rx levothyroxine 25 mcg tablet 25 mcg PO DAILY #90 tabs 09/23/22 11/03/22 Rx lisinopril 10 mg tablet 10 mg PO DAILY #90 tabs 09/23/22 11/03/22 Rx clopidogrel 75 mg tablet (Plavix) 37.5 mg PO DAILY patient decreased 10/16/22 11/03/22 Rx dose 02/06/22 #90 tab-caps Exam Const General: cooperative, comfortable and no acute distress Nutritional Appearance: average body habitus Orientation: alert, awake and oriented x3 HENMT Head: normal to inspection, normocephalic and atraumatic Mouth: oral mucosae normal Chest Chest: normal inspection of the chest Resp Effort & Inspection: normal respiratory effort Auscultation: clear to auscultation bilaterally Cardio Rate: regular rate Rhythm: regular rhythm GI Inspection: other (round soft, non tender) Palpation: no masses and nontender Skin General skin exam: no rashes or lesions noted Neuro General: patient alert, patient awake, patient oriented x3, tone normal and moves all extremities Results Labs 11/03/22 14:57 11/03/22 07:47 Labs: Laboratory Results - last 24 hr 11/03/22 11/03/22 11/03/22 07:47 07:47 07:47 WBC 3.95 L RBC 3.95 Hgb 12.1 Hct 35.4 L MCV 90 MCH 30.6 MCHC 34.2 RDW 12.9 Plt Count 214 MPV 9.5 Immature Gran % 0.3 Neutrophils % 60.5 Lymphocytes % 27.8 Monocytes % 9.1 Eosinophils % 1.8 Basophils % 0.5 Nucleated RBC % 0.0 Absolute Neutrophils 2.39 Absolute Lymphocytes 1.10 L Absolute Monocytes 0.36 Absolute Eosinophils 0.07 Absolute Basophils 0.02 PT INR APTT Cancelled Sodium 136 Potassium 4.0 Chloride 100 Carbon Dioxide 27.9 Anion Gap 8.1 BUN 11 Creatinine 0.8 Est GFR (CKD-EPI 2020) 71.27 Glucose 100 Calcium 8.8 Magnesium 1.7 L Total Bilirubin 0.7 AST 35 ALT 27 Alkaline Phosphatase 96 Total Protein 6.8 Albumin 3.7 Patient ABO/Rh Antibody Screen 11/03/22 11/03/22 07:47 07:47 WBC RBC Hgb Hct MCV MCH MCHC RDW Plt Count MPV Immature Gran % Neutrophils % Lymphocytes % Monocytes % Eosinophils % Basophils % Nucleated RBC % Absolute Neutrophils Absolute Lymphocytes Absolute Monocytes Absolute Eosinophils Absolute Basophils PT 9.5 INR 0.9 APTT 33.1 H Sodium Potassium Chloride Carbon Dioxide Anion Gap BUN Creatinine Est GFR (CKD-EPI 2020) Glucose Calcium Magnesium Total Bilirubin AST ALT Alkaline Phosphatase Total Protein Albumin Patient ABO/Rh A Negative Antibody Screen NEGATIVE Last Vital Signs Temp 36.2 C L 11/03/22 07:18 Pulse 64 11/03/22 08:45 Resp 15 11/03/22 08:50 BP 200/84 H 11/03/22 08:45 Pulse Ox 99 11/03/22 07:18 Time Spent Time spent with Patient: <40 minutes Time was spent: preparing to see the patient(eg.review tests), obtaining and/or reviewing separately otained hiistory, ordering medications,tests, procedures, referring, communicating with other health career technical education instructor and counseling the patient
--- NOTE | 2022-11-03 14:04 | SCONE_ITS ---
Date of service: 11/03/22 Time of Service: 14:04 Assessment and Plan Assessment and plan (1) GI bleeding: Status: Acute Assessment and plan: 87-year-old woman with an isolated and self?limited (apparently) episode of GI bleeding. The etiology is certainly broad and could be foregut sources in addition to colonic sources. This is in the setting of Plavix. She is hemodynamically stable and has no abdominal symptoms and her abdominal exam is benign. There is no indication for surgical intervention. Clinically the bleeding has stopped. Her hemoglobin is still within normal limits. She has no hemodynamic instability. In fact, her blood pressures is in the 180s at the bedside. Personally I think she can be discharged home and can certainly be brought back by the family if she continues to have further bleeding. If the plan is to admit her for serial hemoglobin checks, then the management strategy is to transfuse her as needed for hemoglobin less than 9 considering her multiple com orbidities. It is worth stopping the Plavix for a couple of days to see what happens. There is no reversal agent for Plavix and it has a long half-life - antiplatelet effect of this medication will remain in effect for a number of days even if it is stopped. However if this continues to be a problem, it will have been of benefit to not have brand-new dosing on board. She were to continue to bleed and her hemoglobin continued to drop despite transfusion, upper and lower endoscopy could be considered to try to find the source of the bleeding. Common etiologies include bleeding ulcers in the stomach or duodenum, and diverticular disease in the colon. These episodes continue to happen, she may need to have a discussion with her vascular surgeon and her PCP on whether or not to continue on Plavix. She may need to downgrade to low?dose aspirin. There are discussions to be had outpatient with her above?mentioned providers. Surgery is on board to be called back, as needed, if her bleeding continues and her hemoglobin does not respond to platelet and blood transfusions. Outpatient follow-up, she can discuss the role in the risks/benefits for an elective colonoscopy with her PCP. I think the risks and the unlikelihood of meaningful interventions/findings strongly outweigh the benefits. History of Present Illness Narrative: 87-year-old woman is on Plavix for history of carotid artery stenosis and stroke according to the family and the patient. She has had colonoscopies in the past and reports that she had a couple of small polyps removed but the last/most recent colonoscopy was reportedly normal. She has never had GI bleeding before but today went to the bathroom and had 3 episodes of bright red blood per rectum. For this reason she came to the hospital. She denies any abdominal pain. Since arriving to the hospital she has not had any more episodes. Her hemoglobin was checked and found to be 12.1. [facility] All Active Problems (Updated 11/03/22 @ 14:08 by Derek Jeronimo MD) GI bleeding (Acute) Hyponatremia (Acute) History of stroke (Chronic ~2014) Occurred while taking ASA, so switch to Plavix Raynaud phenomenon (Chronic) Hypothyroidism (Chronic) Essential hypertension (Chronic 07/13/14) Osteoporosis, unspecified (Chronic 11/19/12) Never treated with bisphosphonates per pt Carotid artery stenosis (Acute 07/11/11) [place] [facility] [place] Medical History Abnormal liver function (12/04/12) Anxiety Closed fracture of left proximal humerus (11/21/18) CVA (cerebral vascular accident) (06/22/14) Diverticulosis of small intestine (07/11/11) Mitral valve prolapse (07/11/11) Other and unspecified hyperlipidemia (11/19/12) Statin-controlled Surgical History Carotid endarterectomy Extraction of cataract (12/21/15) Dr. Marla Nam Right eye Dr. Marla Nam left eye Extraction of cataract (01/04/16) Dr. Marla Nam Right eye Dr. Marla Nam left eye Family History Father , [place] at age 65. Heart disease Mother , cva at age 93. Stroke Social History Smoking/Tobacco Use Status: Never Smoking risk assessment performed?: Yes Alcohol Intake: former Drug use: Never Substance use type: does not use Adopted: No Caregiver/Support person: No Foster care: No Housing: house Number of Children: 2 number of grandchildren: 3 Current gender identity: female What is your relationship status?: Panel score (0-1 are the most socially isolated patients): 0 What type of physical activity do you participate in: walking and other Details: weights, squats, leg lifts Duration: 15-30 minutes/day Frequency: 5-6 times per week Seatbelt use: always Drive intox or ride w/intox transit driver: No Working smoke detector in home: Yes Fire extinguisher in home: Yes Carbon monox detector in home: Yes Do you feel safe at home: Yes Do you feel safe in your relationship?: Yes Victim of physical abuse: No Victim of emotional abuse: No Victim of sexual abuse: No Would you like helpful sources: No Additional Social history: pt lives in a house, daughter lives in the other side of home. Exam Narrative Exam Narrative: General: Nontoxic, comfortable and interactive. Energetic and spry for her age Neuro: Alert and oriented x3 Psych: Appropriate mood and affect, reasonable insight and understanding into her conditions Abdomen: Soft, nondistended and nontender Results Last Vital Signs Temp 97.2 F L 11/03/22 07:18 Pulse 64 11/03/22 08:45 Resp 15 11/03/22 08:50 BP 200/84 H 11/03/22 08:45 Pulse Ox 99 11/03/22 07:18 Labs 11/03/22 07:47 11/03/22 07:47 Labs: Laboratory Results - last 24 hr 11/03/22 11/03/22 11/03/22 07:47 07:47 07:47 WBC 3.95 L RBC 3.95 Hgb 12.1 Hct 35.4 L MCV 90 MCH 30.6 MCHC 34.2 RDW 12.9 Plt Count 214 MPV 9.5 Immature Gran % 0.3 Neutrophils % 60.5 Lymphocytes % 27.8 Monocytes % 9.1 Eosinophils % 1.8 Basophils % 0.5 Nucleated RBC % 0.0 Absolute Neutrophils 2.39 Absolute Lymphocytes 1.10 L Absolute Monocytes 0.36 Absolute Eosinophils 0.07 Absolute Basophils 0.02 PT INR APTT Cancelled Sodium 136 Potassium 4.0 Chloride 100 Carbon Dioxide 27.9 Anion Gap 8.1 BUN 11 Creatinine 0.8 Est GFR (CKD-EPI 2020) 71.27 Glucose 100 Calcium 8.8 Magnesium 1.7 L Total Bilirubin 0.7 AST 35 ALT 27 Alkaline Phosphatase 96 Total Protein 6.8 Albumin 3.7 Patient ABO/Rh Antibody Screen 11/03/22 11/03/22 07:47 07:47 WBC RBC Hgb Hct MCV MCH MCHC RDW Plt Count MPV Immature Gran % Neutrophils % Lymphocytes % Monocytes % Eosinophils % Basophils % Nucleated RBC % Absolute Neutrophils Absolute Lymphocytes Absolute Monocytes Absolute Eosinophils Absolute Basophils PT 9.5 INR 0.9 APTT 33.1 H Sodium Potassium Chloride Carbon Dioxide Anion Gap BUN Creatinine Est GFR (CKD-EPI 2020) Glucose Calcium Magnesium Total Bilirubin AST ALT Alkaline Phosphatase Total Protein Albumin Patient ABO/Rh A Negative Antibody Screen NEGATIVE
[2022-11-03] MEDS: hydrALAZINE 20 MG/ML VIAL 10 MG IVP (14:59)
[2022-11-03 15:04] LABS: HCT 34.9 % (36.0-46.0); HGB 11.8 g/dL (11.2-15.7)
[2022-11-03 18:37] LABS: HGB 11.8 g/dL (11.2-15.7)
[2022-11-03 22:10] LABS: HCT 32.6 % (36.0-46.0)
[2022-11-04 05:05] VITALS: BP 159/77; PULSE 79; RESP 16; TEMP 36; O2SAT 97
[2022-11-04] MEDS: Levothyroxine 25 MCG TAB PO (05:30)
[2022-11-04 07:37] VITALS: BP 165/74; PULSE 71; RESP 18; TEMP 36.2; O2SAT 99
[2022-11-04] MEDS: Lisinopril 10 MG TAB PO (08:08)
--- NOTE | 2022-11-04 10:17 | W.PM.DS.N ---
Date of service: 11/04/22 Time of Service: 10:18 DS: Diagnosis Discharge Diagnosis (1) GI bleeding: Status: Acute (2) History of stroke: Status: Chronic (3) Hypothyroidism: Status: Chronic (4) Essential hypertension: Status: Chronic Discharge Plan Disposition Patient Disposition: Home Condition: Stable Discharge Details Reason For Visit: Rectal Bleeding Admit Date/Time: 11/03/22 13:45 Admit Provider: Noé Briceño Attending Provider: Noé Briceño Primary Care Provider: Kaci Leigh Hospital Course Hospital Course: This is an 87 year old female with history of hypertension, CVA, carotid stenosis who presented to the ED for evaluation of rectal bleeding. Her work-up in the emergency department showed a stable H&H. She had no further bleeding while here. She was seen by general surgery who recommends no surgical interventions at this time and to continue with conservative management. She is being discharged to home with no services her Plavix has been on hold for 7 days and she can discuss with her outpatient team or resume in 1 week if there is no further bleeding. Diet has been advanced she is eating and drinking well and she is requesting discharge to home. discharge discussed with DR Briceño Home Meds and New Rx's Prescriptions: Continued multivitamin tablet 1 tab PO DAILY omega 2-hyz-cbq-fish oil [Fish Oil] 1,000 mg (120 mg-180 mg) capsule 1 cap PO DAILY (DME) Pill Splitter See Rx Instructions .Route .MEDSUPPLY Qty: 1 2RF Rx Instructions: Please dispense to use to cut pills in half. levothyroxine 25 mcg tablet 25 mcg PO DAILY Qty: 90 3RF Rx Instructions: Take on an empty stomach 30-min prior to other meds/food lisinopril 10 mg tablet 10 mg PO DAILY Qty: 90 0RF Rx Instructions: New RX for BP 09/23/2022 lecithin 1,200 MG capsule 1,360 mg PO DAILY yckazrwp-bodj-ecokhg-hyalur ac 1 EACH capsule 1,500 ea PO DAILY CALCIUM 600+MINERALS TABLET 1 EACH tablet 1 ea PO DAILY cholecalciferol (vitamin D3) 1,000 UNIT tablet 1,000 unit PO DAILY Held clopidogrel [Plavix] 75 mg tablet 37.5 mg PO DAILY MDD 75mg/24h Qty: 90 3RF Hold Instructions: for 7 days then resume if bleeding stopped Discharge Instructions Instructions: Rectal Bleeding (DC) Additional Instructions: drink plenty of fluids to stay well hydrated. return for ongoing bleeding, dizziness chest pain, shortness of breath or other if your bleeding continues, you may need to stop plavix. discuss with your doctor. Stand Alone Forms: Nursing Discharge Form Referrals: Kaci Leigh NP [Primary Care Provider] - 11/25/22 8:45 am Kaylee Brown DO [OSTEOPATHIC DOCTOR] - 11/18/22 1:00 pm Activity:: Activity as Tolerated Equipment/Supplies:: No Equipment Needed Diet:: As Tolerated Discharge Orders Discharge Orders: Discharge Order (Routine); Ordered 11/04/22 Ordered By: Maribell Ashley Discharge Data Discharge Date/Time-TO BE ENTERED AT DEPARTURE: 11/04/22 13:45 DS: Summary Time Spent with Patient providing and/or coordinating discharge services: Less than 30 minutes Status at Discharge Functional status at discharge: independent ambulation Overall status at discharge: patient is progressing back to baseline Mental Status: mental status grossly normal and other (tearful, wanting discharge) Speech and Movement: speech and movement normal Mood: other (tearful, wanting discharge) Affect: other Exam Const General: cooperative, comfortable and no acute distress Nutritional Appearance: thin Orientation: alert, awake and oriented x3 HENNE Head: normal to inspection, normocephalic and atraumatic Mouth: oral mucosae normal Chest Chest: normal inspection of the chest Resp Effort & Inspection: normal respiratory effort Cardio Rate: regular rate GI Inspection: normal to inspection and non-distended Palpation: soft, no guarding and nontender Auscultation: normal bowel sounds Neuro General: patient alert, patient awake and patient oriented x3 Psych Appearance: grossly normal Mental Status: mental status grossly normal and other (tearful, wanting discharge) Speech and Movement: speech and movement normal Mood: other (tearful, wanting discharge) Affect: other Attitude: cooperative Thought Process: normal Thought Content: normal Insight: fair Judgment: fair DS: Data Vitals/I&O Vitals and I&O: Vital Signs Temperature 36.2 C L 11/04/22 07:37 Temperature Source Tympanic 11/04/22 07:37 Pulse 71 11/04/22 07:37 Pulse Rhythm Regular 11/04/22 09:04 Pulse 81 11/03/22 14:10 Respiratory Rate 18 11/04/22 07:37 Respiratory Effort Normal, Non-Labored 11/04/22 09:04 Respiratory Depth Normal 11/04/22 09:04 Respiratory Pattern Normal 11/04/22 09:04 Blood Pressure 165/74 H 11/04/22 07:37 Blood Pressure Mean 113 11/03/22 14:00 Blood Pressure Position Sitting 11/03/22 07:18 Pulse Oximetry 99 11/04/22 07:37 Oxygen Delivery Method Room Air 11/04/22 07:37 Oxygen Flow Rate 0 11/04/22 07:37 Pain Level 0 11/03/22 16:42 Comment BP called over radio 11/04/22 07:37 Intake & Output 11/03/22 11/03/22 11/04/22 11:59 23:59 11:59 Intake Total 1000 / 1450 450 / 1450 250 / 250 Output Total 100 / 100 Balance 1000 / 1450 450 / 1450 150 / 150 Weight 49.442 kg Intake: IV 1000 / 1000 Oral 450 / 450 250 / 250 Output: Urine 100 / 100 Other: Urine Color Yellow Urine Appearance Clear Clear Stool Occult Blood Positive Stool Size Small Small Stool Characteristics Hard Formed Brown Brown Bloody Emesis Description None Voiding Methods Toilet Data Completed and Pending Labs on day of discharge: Labs from last 24 hours 11/04/22 11/04/22 11/03/22 09:39 09:39 22:02 WBC Pending RBC Pending Hgb Pending 11.0 L Hct Pending 32.6 L MCV Pending MCH Pending MCHC Pending RDW Pending Plt Count Pending MPV Pending Immature Gran % Pending Neutrophils % Pending Lymphocytes % Pending Monocytes % Pending Eosinophils % Pending Basophils % Pending Absolute Neutrophils Pending Absolute Lymphocytes Pending Absolute Monocytes Pending Absolute Eosinophils Pending Absolute Basophils Pending Sodium Pending Potassium Pending Chloride Pending Carbon Dioxide Pending Anion Gap Pending BUN Pending Creatinine Pending Est GFR (CKD-EPI 2020) Pending Glucose Pending Calcium Pending 11/03/22 11/03/22 18:30 14:57 WBC RBC Hgb 11.8 11.8 Hct 34.0 L 34.9 L MCV MCH MCHC RDW Plt Count MPV Immature Gran % Neutrophils % Lymphocytes % Monocytes % Eosinophils % Basophils % Absolute Neutrophils Absolute Lymphocytes Absolute Monocytes Absolute Eosinophils Absolute Basophils Sodium Potassium Chloride Carbon Dioxide Anion Gap BUN Creatinine Est GFR (CKD-EPI 2020) Glucose Calcium PFSH All Active Problems (Updated 11/06/22 @ 15:12 by Kaci Leigh NP) GI bleeding (Acute ~10/2022) Hyponatremia (Acute) History of stroke (Chronic ~2014) Occurred while taking ASA, so switch to Plavix Raynaud phenomenon (Chronic) Hypothyroidism (Chronic) Essential hypertension (Chronic 07/13/14) Osteoporosis, unspecified (Chronic 11/19/12) Never treated with bisphosphonates per pt Carotid artery stenosis (Acute 07/11/11) R-sided endarterectomy; [facility] – [place] Medical History Abnormal liver function (12/04/12) Anxiety Closed fracture of left proximal humerus (11/21/18) CVA (cerebral vascular accident) (06/22/14) Diverticulosis of small intestine (07/11/11) Mitral valve prolapse (07/11/11) Other and unspecified hyperlipidemia (11/19/12) Statin-controlled Surgical History Carotid endarterectomy Extraction of cataract (12/21/15) Dr. Marla Nam Right eye Dr. Marla Nam left eye Extraction of cataract (01/04/16) Dr. Marla Nam Right eye Dr. Marla Nam left eye Family History Father , [place] at age 65. Heart disease Mother , cva at age 93. Stroke Social History Smoking/Tobacco Use Status: Never Smoking risk assessment performed?: Yes Alcohol Intake: former Drug use: Never Substance use type: does not use Adopted: No Caregiver/Support person: No Foster care: No Housing: house Number of Children: 2 number of grandchildren: 3 Current gender identity: female What is your relationship status?: Panel score (0-1 are the most socially isolated patients): 0 What type of physical activity do you participate in: walking and other Details: weights, squats, leg lifts Duration: 15-30 minutes/day Frequency: 5-6 times per week Seatbelt use: always Drive intox or ride w/intox grain combine driver: No Working smoke detector in home: Yes Fire extinguisher in home: Yes Carbon monox detector in home: Yes Do you feel safe at home: Yes Do you feel safe in your relationship?: Yes Victim of physical abuse: No Victim of emotional abuse: No Victim of sexual abuse: No Would you like helpful sources: No Additional Social history: pt lives in a house, daughter lives in the other side of home. Time Spent with Patient Time Spent with Patient: <45 minutes Time was spent: preparing to see the patient(eg.review tests), obtaining and/or reviewing separately otained hiistory, ordering medications,tests, procedures, referring, communicating with other health long term care pharmacist, counseling the patient and care coordination
[2022-11-04 10:27] LABS: Abs Immature Grans 0.01 10^3/uL (0.0-0.06); Absolute Basophil Count 0.02 10^3/uL (0.0-0.2); Absolute Eosinophil Count 0.07 10^3/uL (0.0-0.7); Absolute Lymphocyte Count 1.72 10^3/uL (1.2-3.4); Absolute Monocyte Count 0.57 10^3/uL (0.1-0.8); Absolute Neutrophil Count 2.69 10^3/uL (1.2-6.7); Basophils % 0.4; Eosinophils % 1.4; HCT 33.4 % (36.0-46.0); HGB 11.4 g/dL (11.2-15.7); Immature Grans % 0.2; Lymphocytes % 33.9; MCH 30.5 pg (27.0-33.0); MCHC 34.1 % (32.0-36.0); MCV 89 fL (80-95); MPV 9.9 fL (8.0-11.0); Monocytes % 11.2; Neutrophils % 52.9; Platelet Count 202 10^3/uL (130-400); RBC 3.74 10^6/uL (3.93-5.22); RDW 13.2 % (11.7-14.6); RDW-SD 43.3 fL; WBC 5.08 10^3/uL (4.4-10.8)
[2022-11-04 10:37] LABS: Anion Gap 6.9 mmol/L (3-11); BUN 12 mg/dL (7-18); CO2 28.1 mmol/L (21.0-32.0); CREATININE 0.7 mg/dL (0.55-1.02); Calcium 8.3 mg/dL (8.5-10.1); Chloride 99 mmol/L (98-107); Estimated GFR 83.65 (mL/min/1.73m2); Glucose 93 mg/dL (74-106); Potassium 4.1 mmol/L (3.5-5.1); Sodium 134 mmol/L (136-145)
--- NOTE | 2022-11-04 15:37 | NUR.NOTE ---
Nursing Note: Accessed pt chart to determine the number of EKG orders.
== END 2022-11-04 13:45 | disposition home or self-care (01) ==
LOC: ER 13:49 → MS 14:32
PROVIDERS: Emergency Medicine; Nurse Practitioner Acute Care; Admitting Provider Internal Medicine; Emergency Provider Student in an Organized Health Care Education/Training Program; PCP Nurse Practitioner Adult Health; Visit Provider Internal Medicine
DX: K57.31 Diverticulosis of large intestine without perforation or abscess with bleeding (principal); Z79.01 Long term (current) use of anticoagulants; Z86.73 Personal history of transient ischemic attack (TIA), and cerebral infarction without residual deficits; I10 Essential (primary) hypertension; E87.1 Hypo-osmolality and hyponatremia; I73.00 Raynaud's syndrome without gangrene; M81.0 Age-related osteoporosis without current pathological fracture; F41.9 Anxiety disorder, unspecified; I34.0 Nonrheumatic mitral (valve) insufficiency; E78.5 Hyperlipidemia, unspecified; E03.9 Hypothyroidism, unspecified
CPT/HCPCS: 36415; 80048; 80053; 86850; 86900; 86901; 93005; 96360; 96361; 96374; 99223; 99285; 74177; 83735; 85014; 85018; 85025; 85610; 85730; 93010; 99238; J0360; J3490

== ENCOUNTER → 2022-11-18 12:44 | Outpatient (BNVA) | payer MEDICARE, MEDICAID, SELFPAY | PROVIDERS: PCP Nurse Practitioner Adult Health; Referring Provider Nurse Practitioner Adult Health; Visit Provider Surgery | DX: K57.30 Diverticulosis of large intestine without perforation or abscess without bleeding (principal) | CPT/HCPCS: 99212; 99213 ==

== ENCOUNTER 2022-11-22 01:49 | Outpatient (CLI) | payer MEDICARE, MEDICAID, SELFPAY ==
[2022-11-22 07:20] LABS: Absolute Basophil Count 0.01 10^3/uL (0.0-0.2); Absolute Eosinophil Count 0.08 10^3/uL (0.0-0.7); Absolute Lymphocyte Count 1.59 10^3/uL (1.2-3.4); Absolute Monocyte Count 0.44 10^3/uL (0.1-0.8); Absolute Neutrophil Count 1.71 10^3/uL (1.2-6.7); Basophils % 0.3; Eosinophils % 2.1; HGB 12.1 g/dL (11.2-15.7); Lymphocytes % 41.5; MCH 29.9 pg (27.0-33.0); MCHC 33.6 % (32.0-36.0); MCV 89 fL (80-95); MPV 9.9 fL (8.0-11.0); Monocytes % 11.5; Neutrophils % 44.6; Platelet Count 211 10^3/uL (130-400); RBC 4.05 10^6/uL (3.93-5.22); RDW-SD 42.5 fL; WBC 3.83 10^3/uL (4.4-10.8)
[2022-11-22 08:12] LABS: Anion Gap 6.5 mmol/L (3-11); BUN 11 mg/dL (7-18); CO2 28.5 mmol/L (21.0-32.0); CREATININE 0.7 mg/dL (0.55-1.02); Calcium 9.2 mg/dL (8.5-10.1); Chloride 98 mmol/L (98-107); Estimated GFR 83.65 (mL/min/1.73m2); Ferritin 64 ng/mL (8-252); Glucose 95 mg/dL (74-106); Potassium 4.6 mmol/L (3.5-5.1); Sodium 133 mmol/L (136-145)
[2022-11-22 08:30] LABS: FREE T4 1.04 ng/dL (0.76-1.46)
[2022-11-22 08:48] LABS: Folate > 20.0 ng/mL (8.6-20.0); Vitamin B12 697 pg/mL (193-986)
== END 2022-11-22 01:50 | disposition home or self-care (01) ==
LOC: LBO 01:49
PROVIDERS: Surgery; PCP Nurse Practitioner Adult Health; Visit Provider Nurse Practitioner Adult Health
DX: E03.9 Hypothyroidism, unspecified (principal); R79.89 Other specified abnormal findings of blood chemistry; K92.2 Gastrointestinal hemorrhage, unspecified; Z86.73 Personal history of transient ischemic attack (TIA), and cerebral infarction without residual deficits
CPT/HCPCS: 36415; 80048; 82607; 82728; 82746; 84439; 84443; 85025

== ENCOUNTER 2022-11-30 18:00 | Observation (INO) | payer MEDICARE, MEDICAID, SELFPAY ==
[2022-11-30] VITALS (16 sets, daily range): BP systolic 185–193; BP diastolic 54–84; PULSE 70–79; RESP 14–18; TEMP 36.6; O2SAT 61–100
--- NOTE | 2022-11-30 18:00 | DI.RAD_ITS ---
Exam(s) XR WRIST LT COMP NAVICULAR EXAM: XR WRIST LT COMP NAVICULAR CLINICAL HISTORY: Fall. TECHNIQUE: 2D digital imaging was performed. Three views. COMPARISON: No exams were available for comparison FINDINGS: BONES: Nondisplaced distal radial fracture with extension to the articular surface but no significant separation. No significant angulation. Distal ulna and carpal bones appear intact. No bony destru ctive lesion is seen. JOINTS: The carpal bones are normally aligned. Degenerative changes greatest at 1st carpal metacarp al joint. SOFT TISSUE: Diffuse prominent swelling. IMPRESSION: Nondisplaced distal radial fracture. DATA REPOSITORY: RADIATION DOSE DELIVERED:
--- NOTE | 2022-11-30 18:00 | DI.RAD_ITS ---
Exam(s) XR KNEE LT 4V AP,LAT,MEGAN,PAT EXAM: XR KNEE LT 4V AP,LAT,MEGAN,PAT CLINICAL HISTORY: pain. TECHNIQUE: 2D digital imaging was performed. Three views. COMPARISON: No exams were available for comparison FINDINGS: BONES: There is a nondisplaced fracture of the patella which involves the central and lateral facet. No additional fractures.. No bony destructive lesion is seen. JOINTS: Severe degenerative changes of the lateral femoral tibial joint with prominent periarticular spurring. Hemarthrosis is seen. SOFT TISSUE: Vascular calcifications. IMPRESSION: Nondisplaced patellar fracture. DATA REPOSITORY: RADIATION DOSE DELIVERED:
--- NOTE | 2022-11-30 18:06 | ED.GENADUL_ITS ---
Discharge Plan Disposition Patient Disposition: Home Discharge Details Clinical Impression: Fracture of wrist, Fracture, patella Primary Care Provider: Kaci Leigh ED Provider: Sang Espino Medical Decision Making Patient with mechanical fall. Sustained fracture of the left wrist and left patella. The patient was placed in a sugar-tong splint for the left wrist and the knee immobilizer on left knee. Unfortunately she is unable to ambulate safely. This patient cannot be discharged home safely. The case was discussed Dr. Calderon who will be admit the patient. I explained to the patient that we will probably need short-term rehab. CT scan of the head negative. HPI General Date/Time Provider Initiated Documentation: 11/30/22 18:06 . HPI Narrative: 87-year-old lady who was walking up this morning in the basement with some exercise equipment and and straps. The strap broke and she fell forward landing on her both knees and breaking her fall with her right arm. She immediately felt some pain to bilateral knees and the right wrist. No head trauma no loss of consciousness no chest pain no shortness of breath no abdominal pain. She noticed some swelling of the left wrist she been icing it 20 minutes on 20 minutes off. She states that she has due to metal at some point she could not feel her hand. The pain right wrist is worse with movement. She has bilateral knee pain but mainly the left knee which is more swollen than the right. She got full range of motion the right knee but there is limited range of motion of the left knee. Related Data Home Medications Medication Instructions Recorded Confirmed Calcium 600+Minerals Tablet 1 ea PO DAILY 08/20/12 11/30/22 glucosamin 375 mg-chond 300 1,500 ea PO DAILY 08/20/12 11/30/22 mg-collagen 50 mg-hyaluronic acid 2 mg cap lecithin 1,200 mg capsule 1,360 mg PO DAILY 08/20/12 11/30/22 cholecalciferol (vitamin D3) 25 1,000 unit PO DAILY 01/14/17 11/30/22 mcg (1,000 unit) tablet multivitamin 1 tab PO DAILY 08/25/18 11/30/22 omega 8-xbt-rug-fish oil 1,000 mg 1 cap PO DAILY 08/25/18 11/30/22 (120 mg-180 mg) capsule (Fish Oil) Pill Splitter #1 ea 02/05/22 11/30/22 levothyroxine 25 mcg tablet 25 mcg PO DAILY #90 tabs 09/23/22 11/30/22 clopidogrel 75 mg tablet (Plavix) 37.5 mg PO DAILY patient decreased 10/16/22 11/30/22 dose 02/06/22 #90 tab-caps lisinopril 20 mg tablet 20 mg PO DAILY #90 tabs 11/25/22 11/30/22 Previous Rx's Medication Instructions Recorded Pill Splitter #1 ea 02/05/22 levothyroxine 25 mcg tablet 25 mcg PO DAILY #90 tabs 09/23/22 clopidogrel 75 mg tablet (Plavix) 37.5 mg PO DAILY patient decreased 10/16/22 dose 02/06/22 #90 tab-caps lisinopril 20 mg tablet 20 mg PO DAILY #90 tabs 11/25/22 Allergies Allergy/AdvReac Type Severity Reaction Status Date / Time Influenza Virus Vaccines AdvReac sick for 2 Verified 11/30/22 18:17 wks following flu vaccine 02/24/18 General BRENDAN: 3 Review of Systems Narrative: 10 point review of systems is negative unless otherwise specified in the HPI PFSH All Active Problems Fracture of wrist (Acute) Fracture, patella (Acute) Hyponatremia (Chronic) History of stroke (Chronic ~2014) Occurred while taking ASA, so switch to Plavix Raynaud phenomenon (Chronic) Hypothyroidism (Chronic) Essential hypertension (Chronic 07/13/14) Osteoporosis, unspecified (Chronic 11/19/12) Never treated with bisphosphonates per pt Carotid artery stenosis (Acute 07/11/11) R-sided endarterectomy; [facility] [place]; 2007 Medical History Abnormal liver function (12/04/12) Anxiety Closed fracture of left proximal humerus (11/21/18) CVA (cerebral vascular accident) (06/22/14) Diverticula of colon (~10/2022) Diverticulosis of small intestine (07/11/11) GI bleeding (~10/2022) Mitral valve prolapse (07/11/11) Other and unspecified hyperlipidemia (11/19/12) Statin-controlled Surgical History Carotid endarterectomy Extraction of cataract (12/21/15) Dr. Marla Nam Right eye Dr. Marla Nam left eye Extraction of cataract (01/04/16) Dr. Marla Nam Right eye Dr. Marla Nam left eye Family History Father , [place] at age 65. Heart disease Mother , cva at age 93. Stroke Social History Smoking/Tobacco Use Status: Never Smoking risk assessment performed?: Yes Alcohol Intake: former Drug use: Never Substance use type: does not use Adopted: No Caregiver/Support person: No Foster care: No Housing: house Number of Children: 2 number of grandchildren: 3 Current gender identity: female What is your relationship status?: Panel score (0-1 are the most socially isolated patients): 0 What type of physical activity do you participate in: walking and other Details: weights, squats, leg lifts Duration: 15-30 minutes/day Frequency: 5-6 times per week Seatbelt use: always Drive intox or ride w/intox bus driver school: No Working smoke detector in home: Yes Fire extinguisher in home: Yes Carbon monox detector in home: Yes Do you feel safe at home: Yes Do you feel safe in your relationship?: Yes Victim of physical abuse: No Victim of emotional abuse: No Victim of sexual abuse: No Would you like helpful sources: No Additional Social history: pt lives in a house, daughter lives in the other side of home. Exam Narrative Exam Narrative: General: A,A Ox3, Calm, no apparent distress, well developed, pleasant and cooperative Head Size/Shape: normocephalic, atraumatic Eyes Pupils: PERRLA Extraocular Mobility: intact and symmetrical Conjunctiva: non-injected, anicteric, no discharge Ears, Nose, Throat Nares: patent bilaterally Oral Cavity: moist Neck: no masses, no crepitus Respiratory Respiratory Effort: no dyspnea Auscultation: clear to auscultation bilaterally, normal breath sounds, no wheezing, no rales/crackles Cardiovascular Heart Auscultation: regular rate and rhythm, normal S1, normal S2, no murmurs, no rubs, no gallops, Pulse Quality: +2 equal bilaterally, location(s) radial Abdomen Inspection and Palpation: soft, non-tender, non-distended, no hepatosplenomegaly Musculoskeletal System Joints, Bones, and Muscles: Swollen and deformed right wrist primarily on the dorsal aspect. Mild bruising of the right knee, full range of motion Moderate swelling of the left knee with decreased range of motion. Extremities: warm and well-perfused, no cyanosis, capillary refill <2 seconds Skin Skin Inspection: no rash, no lesions, no bruising Neurological Motor: normal tone, normal strength, moving all extremities equally Psychiatric: good insight, good judgement, normal mood and affect
--- NOTE | 2022-11-30 18:15 | DI.CT_ITS ---
Exam(s) CT HEAD WO EXAM: CT HEAD WO CLINICAL HISTORY: trauma. TECHNIQUE: Imaging Protocol: Axial computed tomography images with coronal and sagittal reformatted images were created and reviewed COMPARISON: CT HEAD WITHOUT CONTRAST from 06/30/2014 FINDINGS: Ventricles and Extra axial spaces: Normal in size and morphology for the patient's age. Hemorrhage: None. Cerebral parenchyma: No evidence of acute infarct or mass. Calcification again noted adjacent to po sterior horn of the right lateral ventricle. Midline shift: None. Brainstem/Cerebellum: Normal. Calvarium: Normal. Visualized Paranasal sinuses/Mastoids: Clear. Soft Tissues: Unremarkable. IMPRESSION: No acute intracranial process. RADIATION DOSE DELIVERED: Total DLP DATA REPOSITORY: All CT scans at this facility are submitted to the National Radiology Data Registry (NRDR) Dose Index Registry (DIR) with the [employer] (ACR). RADIATION OPTIMIZATION: All CT scans at this facility use at least one of these dose optimization te chniques: automated exposure control; mA and/or kV adjustment per patient size (includes targeted exa ms where dose is matched to clinical indication); or iterative reconstruction.
--- NOTE | 2022-11-30 19:09 | DI.VRAD_ITS ---
PROCEDURE INFORMATION: Exam: XR Left Wrist Exam date and time: 11/30/2022 6:45 PM Age: 87 years old Clinical indication: Pain; Left; Patient HX: Injured wrist while exercising TECHNIQUE: Imaging protocol: Radiologic exam of the left wrist. Views: 3 or more views. COMPARISON: No relevant prior studies available. FINDINGS: Bones/joints: Osteopenia. Severe osteoarthritis of the 1st carpometacarpal joint. There is a fracture of the distal radial epiphysis. Minor displacement. No articular involvement identified by plain x-ray. Soft tissues: Soft tissue swelling. IMPRESSION: 1. Mildly displaced distal left radial epiphyseal fracture. No definable articular involvement or step-off by plain film. 2. Osteoarthritis of the 1st carpometacarpal joint. 3. Osteopenia. 4. Soft tissue swelling. Dictated and Authenticated by: Bradley Rangel MD. Ordering:DOE Domínguez MD
--- NOTE | 2022-11-30 19:24 | DI.VRAD_ITS ---
PROCEDURE INFORMATION: Exam: CT Head Without Contrast Exam date and time: 11/30/2022 6:35 PM Age: 87 years old Clinical indication: Injury or trauma; Blunt trauma (contusions or hematomas); Patient HX: Fall while exercising TECHNIQUE: Imaging protocol: Computed tomography of the head without contrast. COMPARISON: No relevant prior studies available. FINDINGS: Brain: No intracranial hemorrhage. Diffuse cerebral atrophy concordant with patient's age. Moderate chronic small vessel deep white matter ischemia. No cerebral edema, mass, or large territory acute CVA. Benign-appearing periventricular calcification along the posterior aspect of the left lateral ventricle. Cerebral ventricles: No ventriculomegaly. Paranasal sinuses: Visualized sinuses are unremarkable. No fluid levels. Mastoid air cells: Visualized mastoid air cells are well aerated. Bones/joints: No skull fracture. Soft tissues: Minor posterior right parietal scalp contusion/hematoma. No foreign body. IMPRESSION: 1. No intracranial hemorrhage. 2. Cerebral atrophy and chronic small vessel deep white matter ischemia. 3. No skull fracture. 4. Minor posterior right parietal scalp contusion. Dictated and Authenticated by: Bradley Rangel MD. Ordering:DOE Domínguez MD
--- NOTE | 2022-11-30 19:28 | DI.VRAD_ITS ---
PROCEDURE INFORMATION: Exam: XR Left Knee Exam date and time: 11/30/2022 6:56 PM Age: 87 years old Clinical indication: Pain; Knee; Left; Patient HX: Fall while exercising TECHNIQUE: Imaging protocol: Radiologic exam of the left knee. Views: 4 or more views. COMPARISON: No relevant prior studies available. FINDINGS: Bones/joints: Patellar irregularity concerning for fracture. No significant displacement. Best appreciated on sunrise view involving the lateral patellar pole. Distal femur, proximal tibia, and proximal fibula are unremarkable. Moderate lateral joint compartment degenerative narrowing. Joint effusion with appearance of Lipo hemarthrosis. Soft tissues: Soft tissue swelling. Vasculature: Atherosclerotic arterial calcium. IMPRESSION: 1. Patellar fracture without significant displacement. 2. Small lipohemarthrosis. 3. Degenerative knee joint changes. 4. Soft tissue swelling. Dictated and Authenticated by: Bradley Rangel MD. Ordering:DOE Domínguez MD
--- NOTE | 2022-11-30 20:19 | HPE_ITS ---
Date of service: 11/30/22 Time of Service: 20:20 Assessment and Plan Assessment and plan (1) Fracture of wrist: Status: Acute Assessment and plan: Wrist and patellar fractures. Should require only non-operative management but will consult with Orthopedics in morning, and PT as well. Does not report any pain at present but requests prn Tylenol. Reviewed ADs, requests Full Code, but would not want any prolonged life support. History of Present Illness History of Present Illness Chief Complaint: fall Narrative: 87 female had mechanical fall earlier today (was exercising in basement and tension band snapped). She fell forward onto left wrist and knees (glancing brush to right side if head on way down against a piece of furniture but no LOC).In ER findings of note for scalp abrasion noted on head CT, distal radial epiphyseal fracture on left and right patellar fracture. Patient placed in knee immobilizer and wrist splint. Due to inability to independently ambulate with this combination injuries she is admitted for further care. When I entered room patient was being assisted off commode and was patently unable to manage by herself. Review of Systems Narrative: per HPI PFSH All Active Problems Fracture of wrist (Acute) Fracture, patella (Acute) Hyponatremia (Chronic) History of stroke (Chronic ~2014) Occurred while taking ASA, so switch to Plavix Raynaud phenomenon (Chronic) Hypothyroidism (Chronic) Essential hypertension (Chronic 07/13/14) Osteoporosis, unspecified (Chronic 11/19/12) Never treated with bisphosphonates per pt Carotid artery stenosis (Acute 07/11/11) R-sided endarterectomy; [facility] [place]; 2007 Medical History Abnormal liver function (12/04/12) Anxiety Closed fracture of left proximal humerus (11/21/18) CVA (cerebral vascular accident) (06/22/14) Diverticula of colon (~10/2022) Diverticulosis of small intestine (07/11/11) GI bleeding (~10/2022) Mitral valve prolapse (07/11/11) Other and unspecified hyperlipidemia (11/19/12) Statin-controlled Surgical History Carotid endarterectomy Extraction of cataract (12/21/15) Dr. Marla Nam Right eye Dr. Marla Nam left eye Extraction of cataract (01/04/16) Dr. Marla Nam Right eye Dr. Marla Nam left eye Family History Father , [place] at age 65. Heart disease Mother , cva at age 93. Stroke Social History Smoking/Tobacco Use Status: Never Smoking risk assessment performed?: Yes Alcohol Intake: former Drug use: Never Substance use type: does not use Adopted: No Caregiver/Support person: No Foster care: No Housing: house Number of Children: 2 number of grandchildren: 3 Current gender identity: female What is your relationship status?: Panel score (0-1 are the most socially isolated patients): 0 What type of physical activity do you participate in: walking and other Details: weights, squats, leg lifts Duration: 15-30 minutes/day Frequency: 5-6 times per week Seatbelt use: always Drive intox or ride w/intox meals on wheels driver: No Working smoke detector in home: Yes Fire extinguisher in home: Yes Carbon monox detector in home: Yes Do you feel safe at home: Yes Do you feel safe in your relationship?: Yes Victim of physical abuse: No Victim of emotional abuse: No Victim of sexual abuse: No Would you like helpful sources: No Additional Social history: pt lives in a house, daughter lives in the other side of home. Meds Allergies and Home Medications Allergies Allergy/AdvReac Type Severity Reaction Status Date / Time Influenza Virus Vaccines AdvReac sick for 2 Verified 11/30/22 18:17 wks following flu vaccine 02/24/18 Home Medications Medication Instructions Recorded Confirmed Type Calcium 600+Minerals Tablet 1 ea PO DAILY 08/20/12 11/30/22 History glucosamin 375 mg-chond 300 1,500 ea PO DAILY 08/20/12 11/30/22 History mg-collagen 50 mg-hyaluronic acid 2 mg cap lecithin 1,200 mg capsule 1,360 mg PO DAILY 08/20/12 11/30/22 History cholecalciferol (vitamin D3) 25 1,000 unit PO DAILY 01/14/17 11/30/22 History mcg (1,000 unit) tablet multivitamin 1 tab PO DAILY 08/25/18 11/30/22 History omega 4-cek-hpv-fish oil 1,000 mg 1 cap PO DAILY 08/25/18 11/30/22 History (120 mg-180 mg) capsule (Fish Oil) Pill Splitter #1 ea 02/05/22 11/30/22 Rx levothyroxine 25 mcg tablet 25 mcg PO DAILY #90 tabs 09/23/22 11/30/22 Rx clopidogrel 75 mg tablet (Plavix) 37.5 mg PO DAILY patient decreased 10/16/22 11/30/22 Rx dose 02/06/22 #90 tab-caps lisinopril 20 mg tablet 20 mg PO DAILY #90 tabs 11/25/22 11/30/22 Rx Exam Narrative Exam Narrative: 193/54, 79, 36.6, 18, 98% RA. HEENT I am unabe to locate any scalp abrasion; neck supple; lungs clear; heart RRR; abdomen soft and NT; extrtemities left wrist splint, distal CSM intact; right knee immoblizer, distal CSM intact; neuro Ox3, lucid, moves all 4s Results Last Vital Signs Temp 36.6 C 11/30/22 18:12 Pulse 79 11/30/22 18:12 Resp 18 11/30/22 18:12 BP 193/54 H 11/30/22 18:12 Pulse Ox 98 11/30/22 18:12 Time Spent Time spent with Patient: <40 minutes Time was spent: preparing to see the patient(eg.review tests), obtaining and/or reviewing separately otained hiistory, ordering medications,tests, procedures and indepentently interpreting results
[2022-11-30] MEDS: Acetaminophen 325 MG TAB 650 MG PO (23:00)
[2022-12-01] MEDS: Acetaminophen 325 MG TAB 650 MG PO (03:00)
[2022-12-01] MEDS: Levothyroxine 25 MCG TAB PO (05:50)
[2022-12-01 06:26] VITALS: BP 133/76; PULSE 76; RESP 18; TEMP 36.5; O2SAT 98
[2022-12-01] MEDS: Clopidogrel 75 MG TAB 37.5 MG PO (07:48)
[2022-12-01] MEDS: Calcium 600mg/Vit D 200U TAB 1 TAB PO (07:48)
[2022-12-01] MEDS: Lisinopril 20 MG TAB PO (07:49)
[2022-12-01] MEDS: Cholecalciferol (Vitamin D3) 1,000 UNIT TAB 1000 UNITS PO (07:49)
--- NOTE | 2022-12-01 10:44 | PT.INIE ---
Date of service: 12/01/22 Time of Service: 10:30 PT Notes Visit Reasons: Wrist fracture, patellar fracture Inpatient Physical Therapy Evaluation Date: 12/01/22 Referring Doctor: Sarabjit Calderon PT Orders: PT CONSULT: limited ability, wrist and patellar fractures Precautions: Fall risk Patient Profile/Admitting Diagnosis: 87 y o female S/P mechanical fall yesterday, when exercising. She has suffered a left epiphyseal radial fracture, and left non displaced patella fracture. She is currently awaiting ortho consultation. Current problem since presence of below medical comorbidities PMHX: All Active Problems? Fracture of wrist (Acute) Fracture, patella (Acute) Hyponatremia (Chronic) History of stroke (Chronic ~2014) Occurred while taking ASA, so switch to PlavixRaynaud phenomenon (Chronic) Hypothyroidism (Chronic) Essential hypertension (Chronic 07/13/14) Osteoporosis, unspecified (Chronic 11/19/12) Never treated with bisphosphonates per ptCarotid artery stenosis (Acute 07/11/11) R-sided endarterectomy; [facility] [place]; 2007 Medical History? Abnormal liver function (12/04/12) Anxiety Closed fracture of left proximal humerus (11/21/18) CVA (cerebral vascular accident) (06/22/14) Diverticula of colon (~10/2022) Diverticulosis of small intestine (07/11/11) GI bleeding (~10/2022) Mitral valve prolapse (07/11/11) Other and unspecified hyperlipidemia (11/19/12) Statin-controlled Surgical History? Carotid endarterectomy Extraction of cataract (12/21/15) Dr. Marla Nam Right eye Dr. Marla Nam left eyeExtraction of cataract (01/04/16) Dr. Marla Nam Right eye Dr. Marla Nam left eye Social History/Home Situation: Lives independently in an in-law apartment with her daughter in the other side. No use of AD Current Functional Limitations: Requires CG with ambulation and transfers, due to injuries, with Left long leg brace and L wrist splint. Equipment Owned/DME: None Subjective: Fell when an elastic exercise band broke, and flung her forward. Normally lives independently without use of assisitive device. Experiencing pain in her left knee with ambulation attempts. Objective: General Observation: Lying in hospital bend, splint with leonid wrap L wrist and forearm, L long leg brace in place Mental Status: A & O x 3. Very talkative and less worried about the matter at then, then talking about her family and family history. Pain: Present in L knee, but unable to understand pain scale or describe intensity. Vital Signs: Stable per nursing records ROM: Right Upper Extremity: Ariadna flex and abd 100 deg, otherwise WNL UE Left Upper Extremity: Ariadna flex and abd 100 deg, elbow and wrist unable to be evaluated due to design of splint application Right Lower Extremity: Gross WNL Left Lower Extremity: L knee immobilized into extension, hip moving WFL within its constraints, ankle WNL Strength: Right Upper Extremity: Grossly 4/5 throughout Left Upper Extremity: Grossly 4/5 throughout Right Lower Extremity: Grossly 4+/5 throughout Left Lower Extremity: Defer Sensation: Intact Bed Mobility/Transfers: Independent bed mobility Independent supine to sit, sit to supine with leg brace donne STS with R quad cane and L forearm supported on tray, CG x1, same for return to sit Gait: R quad cane, donning L long leg brace, CG x 1, step to pattern leading w Rt uninvolved leg, only tolerated 6 steps limited by Left knee pain Balance: Static Sitting: Good Dynamic Sitting: Good Static Standing: Poor Dynamic Standing: Poor Special Tests: Mobility Limitations Standardized Measure [facility] AM-PAC 6 clicks Basic Mobility Inpatient Short Form: 54% disability Informed Consent/Education: Patient instructed in purpose of PT consult and plan of care. Assessment: Patient is a 87 year old female referred to physical therapy services with the diagnosis of L wrist epiphyseal radial fracture and non displaced patella fracture. Patient presents with associated mobility deficits of the left wrist and knee, currently immobilized and agre related UE and LE weakness, now with added addition of poor balance and movement abnormality while accommodating to her fractures, allowing for functional mobility deficits of assistance required transfers, poor ambulation tolerance and gait impairment, and fall risk. She actually did well with mobility given her age and injuries, and will be appropriate for return home, pending ortho recommendations and findings, but with supervision for all mobility. She will require a quad cane or a walker with a left forearm resting plate to limit fall and improve dynamic mobility safety. She requires PT service to improve safety and functional ambulation training and strengthening to limit functional decline and falls. Patient is assessed as a Moderate [id number] complexity based on the following: History,Examination: See above assessment and comorbidities Presentation: Evolving Decision Making: easy Goals: Goals X1 week 1. Supine-Sit independent 2. Sit-Supine independent 3. Sit-Stand close supervision with AD 4. Stand-Sit close supervision 5. Bed-Chair close supervision with AD 6. Chair-Bed close supervision with AD 7. Gait CG with AD 8. Stairs Min A with AD 9. Independent with home exercise program 10. Balance Fair with AD and CG Plan of Care/Treatment Plan: 1-2x/day, 7 days/week x 1 week. Plan of care has been reviewed with the JUMBO OPERATOR providing the service under Physical Therapy direction. Initiate Physical Therapy intervention for strengthening, bed mobility, transfers, gait, stairs, balance training, use of assistive device. DISCHARGE RECOMMENDATIONS: Home with supervision of family for mobility, and HHPT pending ortho treatment decisions. If family support is not available SNF will be safest option. She will require assistive devices per assessment. TREATMENT CODE/TIME: 20 min, 10:30-10:50, [id number]
--- NOTE | 2022-12-01 11:07 | W.PM.PROGNOT ---
Date of Service Date of service: 12/01/22 Time of Service: 11:07 Assessment and Plan Assessment and plan (1) Fracture of left distal radius: Status: Acute Assessment and plan: nonoperative management. Recommendations- Left wrist velcro brace for protection about 6 weeks. Should remove or loosen wrist brace while resting to protect skin. Encourage early range of motion to fingers, thumb, and wrist to prevent stiffness. Weight bearing as tolerated through the Left wrist with brace on (in order to improve mobility and minimize fall risk). Left knee should be maintained straight (in full extension) for 2 weeks followed by progressive seated flexion with goal 0-90 degrees around week 6 post-injury. Weight bearing in full extension-only with knee immobilizer for 6 weeks. Knee brace should be removed or loosened while resting to protect skin. SANGITA bandage could be applied over knee to improve fit and protect skin. Encourage ankle pumps and wiggle toes to improve circulation, prevent stiffness, and minimize risk blood clot. Isometric quad sets could be performed as well with knee in full extension. Follow up outpatient in 2 weeks. (2) Left patella fracture: Status: Acute Assessment and plan: see above (3) On deep vein thrombosis (DVT) prophylaxis: Status: Acute Assessment and plan: enoxaparin while hospitalized. bilateral SCDs and/or YOLA hose. (4) History of stroke: Status: Chronic Assessment and plan: stable, continue plavix no statin on home med list. (5) Hypothyroidism: Status: Chronic Assessment and plan: TSH 4.5 nov 22, 2022 will continue home dosing Qualifiers: Hypothyroidism type: acquired Qualified Code(s): E03.9 - Hypothyroidism, unspecified (6) Discharge planning issues: Status: Acute Assessment and plan: case management following PT and OT recommendations discussed with DR Muse Subjective Subjective Patient reports: no new complaints, pain is less, tolerating liquids well and tolerating a regular diet Interval history since last seen: moving well with PT Exam Const General: cooperative, healthy appearing, comfortable and no acute distress Nutritional Appearance: average body habitus Orientation: alert, awake and oriented x3 HENMT Head: normal to inspection Mouth: oral mucosae normal Chest Chest: normal inspection of the chest Resp Effort & Inspection: normal respiratory effort Cardio Rate: regular rate Rhythm: regular rhythm and other (good radial and pedal pulses) GI Inspection: normal to inspection Palpation: soft Auscultation: normal bowel sounds Skin Rashes: no rashes Neuro General: patient alert, patient awake and patient oriented x3 Extrem Left upper extremity: edema and wrist Details: tenderness, swelling and other (splint intact, good csmt's distally); no deformity Left lower extremity: knee Details: tenderness Location: of the patella, swelling and other (knee immobilizer intact, good csmt's distally); abnormal ROM Objective Last Vital Signs Temp 36.5 C 12/01/22 06:26 Pulse 76 12/01/22 06:26 Resp 18 12/01/22 06:26 BP 133/76 12/01/22 06:26 Pulse Ox 98 12/01/22 06:26 Time Spent with Patient Time Spent with Patient: 25-34 minutes Time was spent: preparing to see the patient(eg.review tests), obtaining and/or reviewing separately otained hiistory, ordering medications,tests, procedures, referring, communicating with other health care transitions manager, indepentently interpreting results, counseling the patient and care coordination
[2022-12-01] MEDS: traMADol 50 MG TAB PO ×2 (11:17→19:17)
[2022-12-01] MEDS: Famotidine 20 MG TAB PO ×2 (11:17→19:17)
[2022-12-01] MEDS: Ibuprofen 400 MG TAB PO ×2 (11:17→19:17)
--- NOTE | 2022-12-01 11:59 | PDOC.CMIN ---
Date of service: 12/01/22 Time of Service: 11:59 Care Management Initial Assmt Initial Assessment REASON FOR HOSPITALIZATION:: wrist fracture, patellar fracture PREVIOUS FUNCTIONAL STATUS/SOCIAL/FAMILY SUPPORTS:: Sonia lives in [place], independently, although her daughter lives on the other side of the house. She has two children, and three grand children, who are all very supportive. 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 She is very active, and is independent at baseline. CURRENT FUNCTIONAL STATUS:: Dorie was sitting up in her bed when CM met with her. She stated that she is doing much better today than when she arrived. She explained how she is able to modify her mobility and get in and out of bed independently. She reported that she plans to see PT tomorrow, and is hopeful that she will be able to return home after that evaluation. She was seen by Ortho today, who will follow her outpatient. She is very motivated to return home, and feels that she will be successful with the help of her family. CM will continue to follow. ADVANCE DIRECTIVES:: On file; Francis Kearns (son) listed as HCA, Katie Xavier (daughter) listed as alternate HCA. Has patient been provided with info about the portal/API?: Yes Did the patient sign up for the portal?: No CODE STATUS:: Full Code INSURANCE COVERAGE / FINANCIAL ISSUES:: MCR, HUGO CURRENT HOME/COMMUNITY SERVICES/EQUIPMENT:: None PRIMARY CARE PHYSICIAN:: Kaci Leigh POTENTIAL DISCHARGE NEEDS:: Evaluations for further needs, follow up appointments. PATIENT/FAMILY EDUCATION NEEDS:: Review discharge instructions and limitations, discussion of self care needs including ask me three. ANTICIPATED BARRIERS TO DISCHARGE:: Sonia's fractures may impede her ADL's. TRANSPORTATION:: Via private vehicle by family. PLAN:: Sonia will likely return home once medically cleared. She may benefit from HH PT/OT, pending evaluation. Her family will drive her home via private vehicle. She will follow up with her PCP and discharge plan of care. CM will continue to follow. PFSH All Active Problems (Updated 12/01/22 @ 13:56 by Alfredo Dominguez MD) Left patella fracture (Acute 11/30/22) Fracture of left distal radius (Acute 11/30/22) Hyponatremia (Chronic) History of stroke (Chronic ~2014) Occurred while taking ASA, so switch to Plavix Raynaud phenomenon (Chronic) Hypothyroidism (Chronic) Essential hypertension (Chronic 07/13/14) Osteoporosis, unspecified (Chronic 11/19/12) Never treated with bisphosphonates per pt Carotid artery stenosis (Acute 07/11/11) R-sided endarterectomy; [facility] [place]; 2007 Medical History Abnormal liver function (12/04/12) Anxiety Closed fracture of left proximal humerus (11/21/18) CVA (cerebral vascular accident) (06/22/14) Diverticula of colon (~10/2022) Diverticulosis of small intestine (07/11/11) GI bleeding (~10/2022) Mitral valve prolapse (07/11/11) Other and unspecified hyperlipidemia (11/19/12) Statin-controlled Surgical History Carotid endarterectomy Extraction of cataract (12/21/15) Dr. Marla Nam Right eye Dr. Marla Nam left eye Extraction of cataract (01/04/16) Dr. Marla Nam Right eye Dr. Marla Nam left eye Family History Father , [place] at age 65. Heart disease Mother , cva at age 93. Stroke Social History Smoking/Tobacco Use Status: Never Smoking risk assessment performed?: Yes Alcohol Intake: former Drug use: Never Substance use type: does not use Adopted: No Caregiver/Support person: No Foster care: No Housing: house Number of Children: 2 number of grandchildren: 3 Current gender identity: female What is your relationship status?: Panel score (0-1 are the most socially isolated patients): 0 What type of physical activity do you participate in: walking and other Details: weights, squats, leg lifts Duration: 15-30 minutes/day Frequency: 5-6 times per week Seatbelt use: always Drive intox or ride w/intox short haul driver: No Working smoke detector in home: Yes Fire extinguisher in home: Yes Carbon monox detector in home: Yes Do you feel safe at home: Yes Do you feel safe in your relationship?: Yes Victim of physical abuse: No Victim of emotional abuse: No Victim of sexual abuse: No Would you like helpful sources: No Additional Social history: pt lives in a house, daughter lives in the other side of home.
--- NOTE | 2022-12-01 12:55 | OCONE_ITS ---
Date of service: 12/01/22 Time of Service: 12:55 Assessment and Plan Assessment and plan (1) Fracture of left distal radius: Status: Acute Assessment and plan: 87 year old female with Left minimally displaced distal radius fracture and Left minimally displaced stellate patella fracture Chart & x-rays reviewed. Appropriate for nonoperative management. Chemical DVT PPX per medical team based on immobility and placement. Recommend bilateral SCDs and/or YOLA hose. Recommendations- Left wrist velcro brace for protection about 6 weeks. Should remove or loosen wrist brace while resting to protect skin. Encourage early range of motion to fingers, thumb, and wrist to prevent stiffness. Weight bearing as tolerated through the Left wrist with brace on (in order to improve mobility and minimize fall risk). Left knee should be maintained straight (in full extension) for 2 weeks followed by progressive seated flexion with goal 0-90 degrees around week 6 post-injury. Weight bearing in full extension-only with knee immobilizer for 6 weeks. Knee brace should be removed or loosened while resting to protect skin. SANGITA bandage could be applied over knee to improve fit and protect skin. Encourage ankle pumps and wiggle toes to improve circulation, prevent stiffness, and minimize risk blood clot. Isometric quad sets could be performed as well with knee in full extension. Follow up outpatient in 2 weeks. (2) Left patella fracture: Status: Acute [facility] All Active Problems (Updated 12/01/22 @ 13:56 by Alfredo Dominguez MD) Left patella fracture (Acute 11/30/22) Fracture of left distal radius (Acute 11/30/22) Hyponatremia (Chronic) History of stroke (Chronic ~2014) Occurred while taking ASA, so switch to Plavix Raynaud phenomenon (Chronic) Hypothyroidism (Chronic) Essential hypertension (Chronic 07/13/14) Osteoporosis, unspecified (Chronic 11/19/12) Never treated with bisphosphonates per pt Carotid artery stenosis (Acute 07/11/11) R-sided [place]arte[place] [facility] [place] Medical History Abnormal liver function (12/04/12) Anxiety Closed fracture of left proximal humerus (11/21/18) CVA (cerebral vascular accident) (06/22/14) Diverticula of colon (~10/2022) Diverticulosis of small intestine (07/11/11) GI bleeding (~10/2022) Mitral valve prolapse (07/11/11) Other and unspecified hyperlipidemia (11/19/12) Statin-controlled Surgical History Carotid endarterectomy Extraction of cataract (12/21/15) Dr. Marla Nam Right eye Dr. Marla Nam left eye Extraction of cataract (01/04/16) Dr. Marla Nam Right eye Dr. Marla Nam left eye Family History Father , [place] at age 65. Heart disease Mother , cva at age 93. Stroke Social History Smoking/Tobacco Use Status: Never Smoking risk assessment performed?: Yes Alcohol Intake: former Drug use: Never Substance use type: does not use Adopted: No Caregiver/Support person: No Foster care: No Housing: house Number of Children: 2 number of grandchildren: 3 Current gender identity: female What is your relationship status?: Panel score (0-1 are the most socially isolated patients): 0 What type of physical activity do you participate in: walking and other Details: weights, squats, leg lifts Duration: 15-30 minutes/day Frequency: 5-6 times per week Seatbelt use: always Drive 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 Results Last Vital Signs Temp 97.7 F 12/01/22 06:26 Pulse 76 12/01/22 06:26 Resp 18 12/01/22 06:26 BP 133/76 12/01/22 06:26 Pulse Ox 98 12/01/22 06:26
[2022-12-01 15:50] VITALS: BP 138/77; PULSE 95; RESP 18; TEMP 37.1; O2SAT 96
[2022-12-01 19:18] VITALS: BP 127/69; PULSE 84; RESP 18; TEMP 37.3; O2SAT 97
[2022-12-01] MEDS: Melatonin 3 MG TAB 6 MG PO (20:40)
[2022-12-02] MEDS: Levothyroxine 25 MCG TAB PO (05:36)
[2022-12-02 06:34] LABS: HCT 28.8 % (36.0-46.0); HGB 9.8 g/dL (11.2-15.7); MCH 30.5 pg (27.0-33.0); MCV 90 fL (80-95); MPV 10.3 fL (8.0-11.0); Platelet Count 144 10^3/uL (130-400); RBC 3.21 10^6/uL (3.93-5.22); RDW 13.1 % (11.7-14.6); WBC 4.81 10^3/uL (4.4-10.8)
[2022-12-02 07:15] VITALS: BP 120/66; PULSE 70; RESP 17; TEMP 36.1; O2SAT 99
[2022-12-02] MEDS: Calcium 600mg/Vit D 200U TAB 1 TAB PO (07:46)
[2022-12-02] MEDS: Enoxaparin 30 MG/0.3 ML SYR SC (07:47)
[2022-12-02] MEDS: Clopidogrel 75 MG TAB 37.5 MG PO (07:47)
[2022-12-02] MEDS: Famotidine 20 MG TAB PO (07:47)
[2022-12-02] MEDS: Ibuprofen 400 MG TAB PO ×2 (07:47→13:54)
[2022-12-02] MEDS: Lisinopril 20 MG TAB PO (07:47)
[2022-12-02] MEDS: traMADol 50 MG TAB PO ×2 (07:47→13:54)
[2022-12-02] MEDS: Cholecalciferol (Vitamin D3) 1,000 UNIT TAB 1000 UNITS PO (07:47)
--- NOTE | 2022-12-02 11:06 | PT.INTREAT ---
Date of service: 12/02/22 Time of Service: 11:14 PT Notes Visit Reasons: Wrist fracture, patellar fracture Inpatient Physical Therapy Treatment Note [facility] Date: 12/02/22 PRECAUTIONS: Fall, standard, activity as tolerated, WBAT LLE with knee immobilizer in place, WBAT LUE with velcro wrist brace in place. SUBJECTIVE: Patient reports RN Jarocho gave her a Magic Pill which she identifies as a pain pill which has her feeling much more like herself then she did yesterday. OBJECTIVE: Supine in bed, agreeable and eager to participate in therapy. ? PAIN: Yes, in the left knee with movement in weightbearing. VITALS: monitored by nursing staff ??? Gait Training (46210v7): Direct one-on-one instruction and skilled instruction in: employing an assistive device, turning and movement with proper form, Provided instruction in gait pattern, provided instruction in brace management and expectation that left knee should remain completely straight in weightbearing ? GAIT? Assistive Device: Quad cane ? Weight bearing: WBAT LLE with knee immobilizer, WBAT LUE with velcro wrist brace. Assist: CGA with gait belt. ? Distance:? 60 feet ? Deviation: Patient continues to bend her left knee with ambulation, asks if she can have a smaller, shorter immobilizer. ? Therapeutic Exercises ([id number]): Direct one-on-one instruction in therapeutic exercises to develop strength, endurance, range of motion and flexibility. ? Exercises HEP established and reviewed as follows: ? Access Code: [email or web address] URL: [email or web address] Date: 12/02/2022 Prepared by: Saloni Davila Exercises - Thumb Opposition - 1 x daily - 7 x weekly - 3 sets - 10 reps - Wrist AROM Flexion Extension - 1 x daily - 7 x weekly - 3 sets - 10 reps - Finger Spreading - 1 x daily - 7 x weekly - 3 sets - 10 reps - Seated Forearm Pronation and Supination AROM - 1 x daily - 7 x weekly - 3 sets - 10 reps - Seated Finger Composite Flexion Extension - 1 x daily - 7 x weekly - 3 sets - 10 reps - Long Sitting Quad Set - 1 x daily - 7 x weekly - 3 sets - 10 reps - Gluteal Sets - 1 x daily - 7 x weekly - 3 sets - 10 reps - Seated Ankle Circles - 1 x daily - 7 x weekly - 3 sets - 10 reps - Supine Ankle Dorsiflexion and Plantarflexion AROM - 1 x daily - 7 x weekly - 3 sets - 10 reps ? Provided skilled instruction in proper exercise performance. Patient demonstrates understanding and ability to safely perform all exercises listed above. ASSESSMENT:? Patient tolerates therapy well, is eager to get back to her exercise regimen at home. PLAN: Continue global strengthening per plan of care until patient is medically ready for discharge. Patient to have supervision during all ambulation at home. Issued quad cane to patient. TREATMENT CODE/TIME: 39891 Ther Ex 18 minutes, [id number] Gait training 15 minutes beginning at 11:14
--- NOTE | 2022-12-02 11:07 | W.PM.DS.N ---
Date of service: 12/02/22 Time of Service: 11:07 DS: Diagnosis Discharge Diagnosis (1) Fracture of left distal radius: Status: Acute (2) Left patella fracture: Status: Acute (3) History of stroke: Status: Chronic (4) Hypothyroidism: Status: Chronic Discharge Plan Disposition Patient Disposition: Home W/Home Health Services Condition: Stable Discharge Details Reason For Visit: Wrist fracture, patellar fracture Admit Date/Time: 11/30/22 20:31 Admit Provider: Sarabjit Calderon Attending Provider: Sarabjit Calderon Primary Care Provider: Kaci Leigh Hospital Course Hospital Course: This is an 87-year-old female patient who lives home independently who had a mechanical fall while exercising in her basement unfortunately she fell forward and sustained a right patellar fracture and left wrist fracture. The rest of her evaluation was unremarkable. She was seen by orthopedics who applied a splint to her wrist she was placed in a knee immobilizer with discharge instructions provided. As she lives home independently it was thought she could benefit from an observation stay with physical therapy consultation. She was admitted under hospitalist services. Medically she remained stable her pain was well controlled with acetaminophen and Toradol added. She worked with physical therapy and was safely really ambulated. Plan is to discharge to home with home health PT and OT. Discharge is discussed with Dr. uMse Home Meds and New Rx's Prescriptions: New tramadol 50 mg Tablet 50 mg PO Q6H PRN PRNQty: 20 0RF Continued multivitamin tablet 1 tab PO DAILY omega 9-yqv-ija-fish oil [Fish Oil] 1,000 mg (120 mg-180 mg) capsule 1 cap PO DAILY (DME) Pill Splitter See Rx Instructions .Route .MEDSUPPLY Qty: 1 2RF Rx Instructions: Please dispense to use to cut pills in half. levothyroxine 25 mcg tablet 25 mcg PO DAILY Qty: 90 3RF Rx Instructions: Take on an empty stomach 30-min prior to other meds/food lisinopril 20 mg tablet 20 mg PO DAILY Qty: 90 3RF Rx Instructions: Dose increase 11/25/2022 for goal BP <140/90 lecithin 1,200 MG capsule 1,360 mg PO DAILY khnivrfz-nifm-xhyekq-hyalur ac 1 EACH capsule 1,500 ea PO DAILY CALCIUM 600+MINERALS TABLET 1 EACH tablet 1 ea PO DAILY cholecalciferol (vitamin D3) 1,000 UNIT tablet 1,000 unit PO DAILY clopidogrel [Plavix] 75 mg tablet 37.5 mg PO DAILY MDD 75mg/24h Qty: 90 3RF Hold Instructions: for 7 days then resume if bleeding stopped Discharge Instructions Instructions: Wrist Fracture in Adults (ED) Additional Instructions: You were diagnosed with a left wrist fracture as well as a left patella fracture. Do not remove the splint on your wrist. Uses the knee immobilizer for support. You may take Tylenol for the pain. Follow-up with orthopedist next week. Please continue taking all your regular medication. A referral for case management was placed on your behalf. A referral for Ortho was also placed on your behalf you will get phone calls to confirm the time of your appointment. Stand Alone Forms: Nursing Discharge Form Referrals: Kaci Leigh NP [Primary Care Provider] - 12/16/22 10:45 am Robert Saab MD [ [facility] STAFF PHYSICIAN] - 12/17/22 11:15 am Activity:: cane for stability Equipment/Supplies:: cane Diet:: As Tolerated Discharge Orders Discharge Orders: Discharge Order (Routine); Ordered 12/02/22 Ordered By: Maribell Ashley Discharge Data Discharge Date/Time-TO BE ENTERED AT DEPARTURE: 12/02/22 16:05 DS: Summary Time Spent with Patient providing and/or coordinating discharge services: Less than 30 minutes Status at Discharge Functional status at discharge: uses cane/walker Overall status at discharge: patient is progressing back to baseline Mental Status: mental status grossly normal Speech and Movement: speech and movement normal Mood: congruent mood Affect: normal affect Exam Const General: cooperative, healthy appearing, comfortable and no acute distress Nutritional Appearance: average body habitus Orientation: alert, awake and oriented x3 HENMT Head: normal to inspection, normocephalic and atraumatic Mouth: oral mucosae normal Chest Chest: normal inspection of the chest Resp Effort & Inspection: normal respiratory effort Auscultation: clear to auscultation bilaterally Cardio Rate: regular rate Rhythm: regular rhythm GI Inspection: normal to inspection Palpation: soft and nontender Skin General skin exam: no rashes or lesions noted Neuro General: patient alert, patient awake, patient oriented x3 and no focal motor deficits Motor: muscle tone normal throughout Extrem Left upper extremity: wrist (Splint is intact. She has minimal swelling to fingers good range of motion) Right lower extremity: knee (Immobilizer is intact distally there is minimal swelling good sensation) Details: other (Strong pulse sensation is CSM T's distally) Psych Mental Status: mental status grossly normal Speech and Movement: speech and movement normal Mood: congruent mood Affect: normal affect DS: Data Vitals/I&O Vitals and I&O: Vital Signs Temperature 36.1 C L 12/02/22 07:15 Temperature Source Tympanic 12/02/22 07:15 Pulse 70 12/02/22 07:15 Pulse Rhythm Regular 12/02/22 07:52 Respiratory Rate 17 12/02/22 07:15 Respiratory Effort Normal, Non-Labored 12/02/22 07:52 Respiratory Depth Normal 12/02/22 07:52 Respiratory Pattern Normal 12/02/22 07:52 Blood Pressure 120/66 12/02/22 07:15 Blood Pressure Mean 98 11/30/22 21:10 Blood Pressure Position Supine 11/30/22 18:12 Pulse Oximetry 99 12/02/22 07:15 Oxygen Delivery Method Room Air 12/02/22 07:15 Oxygen Flow Rate 0 12/02/22 07:15 Pain Level 0 12/02/22 08:47 Intake & Output 12/01/22 12/01/22 12/02/22 11:59 23:59 11:59 Intake Total 300 / 600 300 / 600 610 / 610 Output Total 550 / 900 350 / 900 800 / 800 Balance -250 / -300 -50 / -300 -190 / -190 Intake: Oral 300 / 600 300 / 600 610 / 610 Output: Urine 550 / 900 350 / 900 800 / 800 Other: Urine Color Yellow Yellow Yellow Urine Appearance Clear Clear Clear Urine Odor Normal Normal Stool Size Moderate Small Stool Characteristics Soft Formed Formed Brown Brown Voiding Methods Bedside Commode Bedside Commode Bedside Commode Data Completed and Pending Labs on day of discharge: Labs from last 24 hours 12/02/22 06:20 WBC 4.81 RBC 3.21 L Hgb 9.8 L Hct 28.8 L MCV 90 MCH 30.5 MCHC 34.0 RDW 13.1 Plt Count 144 MPV 10.3 PFSH All Active Problems (Updated 12/03/22 @ 00:05 by BENI TORO) Left patella fracture (Acute 11/30/22) Fracture of left distal radius (Acute 11/30/22) Hyponatremia (Chronic) History of stroke (Chronic ~2014) Occurred while taking ASA, so switch to Plavix Raynaud phenomenon (Chronic) Hypothyroidism (Chronic) Essential hypertension (Chronic 07/13/14) Osteoporosis, unspecified (Chronic 11/19/12) Never treated with bisphosphonates per pt Carotid artery stenosis (Acute 07/11/11) R-sided endarterectomy; [facility] [place]; 2007 Medical History Abnormal liver function (12/04/12) Anxiety Closed fracture of left proximal humerus (11/21/18) CVA (cerebral vascular accident) (06/22/14) Diverticula of colon (~10/2022) Diverticulosis of small intestine (07/11/11) GI bleeding (~10/2022) Mitral valve prolapse (07/11/11) Other and unspecified hyperlipidemia (11/19/12) Statin-controlled Surgical History Carotid endarterectomy Extraction of cataract (12/21/15) Dr. Marla Nam Right eye Dr. Marla Nam left eye Extraction of cataract (01/04/16) Dr. Marla Nam Right eye Dr. Marla Nam left eye Family History Father , [place] at age 65. Heart disease Mother , cva at age 93. Stroke Social History Smoking/Tobacco Use Status: Never Smoking risk assessment performed?: Yes Alcohol Intake: former Drug use: Never Substance use type: does not use Adopted: No Caregiver/Support person: No Foster care: No Housing: house Number of Children: 2 number of grandchildren: 3 Current gender identity: female What is your relationship status?: Panel score (0-1 are the most socially isolated patients): 0 What type of physical activity do you participate in: walking and other Details: weights, squats, leg lifts Duration: 15-30 minutes/day Frequency: 5-6 times per week Seatbelt use: always 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 Time Spent with Patient Time Spent with Patient: <45 minutes Time was spent: preparing to see the patient(eg.review tests), ordering medications,tests, procedures and counseling the patient
--- NOTE | 2022-12-02 11:10 | PDOC.HHF2F_ITS ---
Home Health Referral Home Health Orders Clinical synopsis of why skilled professionals are needed: upper and lower extremity fractures. high fall risk, risk of complications, need for physical and occupational therapy Medical diagnosis necessitation home health referral: fracture distal radius, left patella fracture Physical Therapist: Check all that apply Increase strength & endurance for safe mobility at home: Ordered To design/establish home maintenance program: Ordered Fall reduction therapy program for patient with history of frequent falls: Or dered Home safety evaluation and teaching/gait training including stair management (if applicable): Ordered Other: Left knee should be maintained straight (in full extension) for 2 weeks followed by progressive seated flexion with goal 0-90 degrees around week 6 post-injury. Weight bearing in full extension-only with knee immobilizer for 6 weeks. Knee brace should be removed or loosened while resting to protect skin. SANGITA bandage could be applied over knee to improve fit and protect skin. Encourage ankle pumps and wiggle toes to improve circulation, prevent stiffness, and minimize risk blood clot. Isometric quad sets could be performed as well with knee in full extension. Left wrist velcro brace for protection about 6 weeks. Should remove or loosen wrist brace while resting to protect skin. Encourage early range of motion to fingers, thumb, and wrist to prevent stiffness. Weight bearing as tolerated through the Left wrist with brace on (in order to improve mobility and minimize fall risk). Occupational Therapist: Evaluate and treat for patient unable to perform ADL/IADL/self-care: Ordered Upper extremity strengthening, range and motion: Ordered Home Bound Status Requires the aid of supportive device (check all that apply): Cane Describe why leaving home would require a considerable and taxing effort: Side effects from pain medication (sedation/drowsiness), Requires frequent rest periods and Safety Concerns: describe (upper and lower extremity fractures) Encounter Date and Reason: I certify that a FTF encounter for this patient was performed on December 02, 2022 and that such encounter was related to the primary reason the patient requires home health services. The encounter was conducted in the following manner: * By me as the certifying physician, SALES PLANNING MANAGER, PA or * By an inpatient physician, SALES PLANNING MANAGER or PA during an inpatient stay who communicated findings to me, Certification And Authentication I certify that I composed the above information based on my clinical judgment relating to this patient's medical condition and, if applicable, clinical findings communicated to me by the NPP or inpatient physician who performed the FTF encounter. Name of Provider that will be monitoring home health services: Kaci Leigh
[2022-12-02 15:27] VITALS: BP 120/68; PULSE 81; RESP 16; TEMP 37; O2SAT 98
--- NOTE | 2022-12-02 15:43 | PDOC.CMDIS ---
Date of service: 12/02/22 Time of Service: 15:43 LACE Index Scoring Tool Questions: Length of Stay (in days): 2 Was the patient admitted via the E.D.?: Yes Comorbidities: Cerebrovascular Disease E.D. Visits: 1 Answers: Total Score: 7 Risk of Readmission: Low Risk Care Management Discharge Plan Reason for Hospitalization: wrist fracture, patellar fracture Discharge Plan: Sonia will return home today with new orders for HH PT, OT, which she is agreeable to. CM informed [facility] of her discharge today. Her daughter will drive her home via private vehicle. She will follow up with her PCP and discharge plan of care. She is happy to be going home. Patient/Family Education Needs: Review discharge instructions and limitations, discussion of self care needs including ask me three. Services Needed at Discharge: Home Health Care Services (HH PT, OT)
--- NOTE | 2022-12-03 11:36 | PT.INDS ---
PT Notes Visit Reasons: Wrist fracture, patellar fracture Inpatient Physical Therapy Discharge Summary Date: 12/03/22 Dates of Service: 12/01/22 through 12/02/22 Patient required service of acute care physical therapy secondary to fall resulting left wrist and left patellar fractures on 11/30/22. Decreased independence with ambulation and need for assistive device. Functional mobility at time of discharge: Improved ability to ambulate while donning left knee immobilizer brace. Assessment: Patient discharged by attending physician and returned home with home health services. Goals: x1 week - not formally re-assessed due to hospital discharge status 1. Supine-Sit independent 2. Sit-Supine independent 3. Sit-Stand close supervision with AD 4. Stand-Sit close supervision 5. Bed-Chair close supervision with AD 6. Chair-Bed close supervision with AD 7. Gait CG with AD 8. Stairs Min A with AD 9. Independent with home exercise program 10. Balance Fair with AD and CG Discharge/Plan: Home with Home Health services Please refer to patient physical therapy initial evaluation, treatment and/or progress notes for a summary of physical therapy care provided through dates of service listed above. This is a clinical summary of care provided for the duration of dates listed above. No charge was made in the completion of this documentation.
== END 2022-12-02 16:05 | disposition home health service (06) ==
LOC: ER 21:06 → MS 21:18
PROVIDERS: Admitting Provider General Practice; Emergency Provider Emergency Medicine; PCP Nurse Practitioner Adult Health; Visit Provider General Practice
DX: S52.502A Unspecified fracture of the lower end of left radius, initial encounter for closed fracture (principal); S82.002A Unspecified fracture of left patella, initial encounter for closed fracture; Z79.899 Other long term (current) drug therapy; Z86.73 Personal history of transient ischemic attack (TIA), and cerebral infarction without residual deficits; E03.9 Hypothyroidism, unspecified; E87.1 Hypo-osmolality and hyponatremia; I73.00 Raynaud's syndrome without gangrene; M81.0 Age-related osteoporosis without current pathological fracture; F41.9 Anxiety disorder, unspecified; K57.10 Diverticulosis of small intestine without perforation or abscess without bleeding; I34.0 Nonrheumatic mitral (valve) insufficiency; W18.39XA Other fall on same level, initial encounter; Y93.B9 Activity, other involving muscle strengthening exercises
CPT/HCPCS: 29125; 29505; 36415; 85027; 97110; 97116; 97162; 99223; 99285; 70450; 73110; 73564; 99221; 99233; 99238; G0378; J1650

== ENCOUNTER 2022-12-17 11:26 | Outpatient (CLI) | payer MEDICARE, MEDICAID, SELFPAY ==
--- NOTE | 2022-12-17 11:00 | DI.RAD_ITS ---
Exam(s) XR WRIST LT LIMITED EXAM: XR WRIST LT LIMITED CLINICAL HISTORY: F/U FRACTURE. TECHNIQUE: 2D digital imaging was performed of the left wrist. Two images were obtained. PA and la teral views were obtained. COMPARISON: CR,XR XR WRIST LT COMP NAVICULAR from 11/30/2022 FINDINGS: BONES: There is again seen a comminuted fracture involving the distal metaphysis of the left radius. There has been increased impaction and now there is moderate dorsal angulation present. No bony bill tructive lesion is seen. The bones are osteopenic. JOINTS: The carpal bones are normally aligned. There are degenerative changes of the wrist particular ly at the 1st CMC joint. SOFT TISSUE: Soft tissue swelling. IMPRESSION: Increased impaction and development of dorsal angulation of the distal left radial fracture since 11/19. DATA REPOSITORY: RADIATION DOSE DELIVERED:
--- NOTE | 2022-12-17 11:00 | DI.RAD_ITS ---
Exam(s) XR KNEE LT 2V AP,LAT EXAM: XR KNEE LT 2V AP,LAT CLINICAL HISTORY: F/U FRACTURE. TECHNIQUE: 2D digital imaging was performed of the left knee. Two images were obtained. AP and lat eral views were obtained. COMPARISON: CR,XR XR KNEE LT 4V AP,LAT,MEGAN,PAT from 11/30/2022 FINDINGS: BONES: There has been no change in alignment of the patellar fracture. No bony destructive lesion i s seen. The bones are osteopenic. JOINTS: There are marked degenerative changes seen in the knee characterized by joint space narrowing and osteophytes. Findings are most marked in the lateral femoral tibial joint. No joint effusion i s seen. No loose body. SOFT TISSUE: Atherosclerosis is present. IMPRESSION: Stable patellar fracture. DATA REPOSITORY: RADIATION DOSE DELIVERED:
== END 2022-12-17 11:27 | disposition home or self-care (01) ==
LOC: DIORS 11:26
PROVIDERS: PCP Nurse Practitioner Adult Health; Referring Provider Nurse Practitioner Adult Health; Visit Provider Student in an Organized Health Care Education/Training Program
DX: S52.502D Unspecified fracture of the lower end of left radius, subsequent encounter for closed fracture with routine healing; S82.002D Unspecified fracture of left patella, subsequent encounter for closed fracture with routine healing; W18.39XD Other fall on same level, subsequent encounter
CPT/HCPCS: 99214; 73100; 73560

== ENCOUNTER 2022-12-30 09:34 | Inpatient (IN) | payer MEDICARE, MEDICAID, SELFPAY ==
[2022-12-30] VITALS (25 sets, daily range): BP systolic 58–152; BP diastolic 25–101; PULSE 62–88; RESP 16–21; TEMP 36.8–37.7; O2SAT 86–100
--- NOTE | 2022-12-30 | DI.US_ITS ---
APPROVED REPORT EXAM: Comprehensive 2D, Doppler, and color-flow Echocardiogram Patient Location: In-Patient Room/Bed: [address] Open End: Jamie Smith RDCS (AE) Indications: syncope, planning surgery for hip fracture repair Conclusion Moderate concentric left ventricular hypertrophy. Ejection fraction is 60%. Wall motion is normal Normal right ventricular size and systolic function Left atrium is moderately dilated. Right atrial size is normal Aortic valve is sclerotic and trileaflet. There is mild to moderate aortic regurgitation. There is no aortic stenosis Severe mitral annular calcification. Moderate mitral stenosis and regurgitation Normal tricuspid valve with mild regurgitation. Estimated right ventricular systolic pressure is 34 mmHg Wall motion Left Ventricle The left ventricle is normal size. Left ventricular systolic function is normal Moderate concentric l eft ventricular hypertrophy. There are no segmental wall motion abnormalities There is no ventricular septal defect visualized. LVEF is 60%. Right Ventricle The right ventricle is normal size. The right ventricular systolic function is normal. The RVSP is 33 .5 mmHg. Atria Left atrium is moderately dilated. The right atrium size is normal. The interatrial septum is intact with no evidence for an atrial septal defect. Aortic Valve The Aortic valve is sclerotic. Aortic valve is trileaflet. No hemodynamically significant valvular ao rtic stenosis. Mild to moderate aortic regurgitation. Mitral Valve Severe mitral annular calcification. Moderate mitral stenosis. Moderate mitral regurgitation. Tricuspid Valve The tricuspid valve is normal in structure. There is no tricuspid valve stenosis. Mild tricuspid regu rgitation. Pulmonic Valve The pulmonary valve is normal in structure. There is no pulmonic valvular stenosis. There is no pulmo loree valvular regurgitation. Great Vessels The aortic root is normal in size. Ascending aorta is not well visualized. Aortic arch is not well vi sualized. IVC is normal in size and collapses >50% with inspiration. Pericardium There is no pericardial effusion. 2D Dimensions IVSD d PLAX 1.30 cm F: 0.6-1.0 Ao Root d 2.84 cm F: 2.7 - 3.3 LVPW d PLAX 1.39 cm F: 0.6 - 1.0 LVID d PLAX 2.88 cm F: 3.8 - 5.2 LVDs 1.50 cm F: 2.2 - 3.5 FS 47.75 % LV EDV (Teich) 31.7 mL LV ESV (Teich) 6.1 mL Stroke Vol Index (Teich) 18.25 M-Mode TAPSE 2.10 cm (M/F) >1.7 Auto EF LV EDV A4C 72.4 mL LV EDV A2C 48.1 mL LV EDV BP 59.1 mL LV ESV A4C 34.3 mL LV ESV A2C 24.8 mL LV ESV BP 29.2 mL LVEF(%) A4C 52.7 % LVEF(%) A2C 48.5 % LVEF(%) BP 50.6 % LV SV A4C 38.2 ml LV SV A2C 23.3 ml LV SV BP 29.9 ml LV CO A4C 2.9 L/min LV CO A2C 1.7 L/min LV CO BP 2.3 L/min HR A4C 75.95 BPM HR A2C 73.32 BPM LV EDV Index (BP) LA Volume LA Length A4C 5.6 cm LA Length A2C LA Area A4C s 22.41 cm2 LA Area A2C s LA Vol A4C A-L 76.45 mL LA Vol A2C A-L LA Vol Biplane A-L LA Vol A4C MOD 71.8 mL LA Vol A2C MOD LA Vol BP MOD RA Volume RA Area A4C 7.2 cm2 RA ESV A4C (A-L) 11.2mL RA Vol/BSA A4C A-L RA Length A4C 3.9 cm RA ESV A4C (MOD) 11.1mL LV Diastology MV E' medial 0.043 (>0.07 m/s) MV E Vmax 1.31 (0.4-1.3 m/s) MV E/E' MED 30.39 (<14) MV A Vmax 2.15 (0.4-1.3 m/s) MV E' lateral 0.046 (>0.1 m/s) E/A Ratio 0.6 MV E/E' LAT 28.37 (<14) MV E' Average 0.045 m/s MV E/E'(average) 29.34 Aortic Valve AoV Vmax 2.15 m/s LVOT Vmax 1.85 m/s AoV Peak Grad 18.5 mmHg LVOT Peak Grad 13.7 mmHg AoV Area (Vmax) 1.50 cm2 LVOT VTI 0.481 m AoV VTI 0.522 m LVOT Mean Grad 9.4 mmHg AoV Mean Phillip. 1.41 m/s LVOT SV 83.48 mL AoV Mean Grad 9.0 mmHg LVOT Diam s 1.45 cm AoV Area (VTI) 1.60 cm2 Velocity Ratio 0.86 Mitral Valve MV DT 279 (160-240 msec) MR Vmax 4.23 m/s MV Mean Grad 8.7 (<2mmHg) MR VTI 0.800 m MR Peak Grad 71.5 mmHg MR Mean Grad 29.6 mmHg Pulmonary Valve PV Vmax 1.32 (0.5-1.5 m/s) RVOT Vmax 1.17 m/s PV Peak Grad 7.0 mmHg RVOT Peak Gr. 5.5 mmHg PV Mean Phillip 0.89 m/s RVOT VTI 0.240 m PV Mean Grad 3.6 mmHg RVOT Mean Gr. 3.1 mmHg Tricuspid Valve RA Pressure 3.00 mmHg TR Vmax 2.76 m/s TR Peak Grad 30.5 mmHg RVSP (TR) 33.5 mmHg
--- NOTE | 2022-12-30 09:30 | DI.RAD_ITS ---
Exam(s) XR PELVIS AP EXAM: XR PELVIS AP CLINICAL HISTORY: fall, hit right hip and knee pain. TECHNIQUE: 2D digital imaging was performed. COMPARISON: No exams were available for comparison FINDINGS: There is a comminuted intertrochanteric fracture of the right hip. Deformity of the right inferior p ubic ramus is not have acute appearance. No fractures in the left hemipelvis nor in the left hip amadeo dent. IMPRESSION: Intertrochanteric fracture right hip. DATA REPOSITORY: RADIATION DOSE DELIVERED:
--- NOTE | 2022-12-30 09:30 | DI.RAD_ITS ---
Exam(s) XR FEMUR RT EXAM: XR FEMUR RT CLINICAL HISTORY: fall, hit right hip and knee pain. TECHNIQUE: 2D digital imaging was performed. COMPARISON: No exams were available for comparison FINDINGS: Four views There is a E low femoral neck high intertrochanteric fracture of the right hip. Mild displacement. No other fractures lower down in the femur. Vascular calcification in the femoral artery noted. IMPRESSION: Right hip fractures described above. DATA REPOSITORY: RADIATION DOSE DELIVERED:
--- NOTE | 2022-12-30 09:42 | DI.RAD_ITS ---
Exam(s) XR KNEE RT 2V AP,LAT EXAM: XR KNEE RT 2V AP,LAT CLINICAL HISTORY: fall, hit right hip and knee pain. TECHNIQUE: 2D digital imaging was performed. COMPARISON: CR XR KNEE LT 2V AP,LAT from 12/17/2022 FINDINGS: 3 views No evidence of right knee fracture. No obvious joint effusion. There are moderate degenerative edmondson ges most evident in the lateral compartment. IMPRESSION: No knee fracture. Degenerative changes evident DATA REPOSITORY: RADIATION DOSE DELIVERED:
--- NOTE | 2022-12-30 09:55 | ED.GENADUL_ITS ---
Discharge Plan Disposition Patient Disposition: Admit to [facility] Condition: Good Discharge Details Chief Complaint: Trauma Clinical Impression: Closed right hip fracture Primary Care Provider: Kaci Leigh ED Provider: Emory Cohen Home Meds and New Rx's Prescriptions: No Action multivitamin tablet 1 tab PO DAILY omega 6-dwd-hes-fish oil [Fish Oil] 1,000 mg (120 mg-180 mg) capsule 1 cap PO DAILY (DME) Pill Splitter See Rx Instructions .Route .MEDSUPPLY Qty: 1 2RF Rx Instructions: Please dispense to use to cut pills in half. levothyroxine 25 mcg tablet 25 mcg PO DAILY Qty: 90 3RF Rx Instructions: Take on an empty stomach 30-min prior to other meds/food lisinopril 20 mg tablet 20 mg PO DAILY Qty: 90 3RF Rx Instructions: Dose increase 11/25/2022 for goal BP <140/90 lecithin 1,200 MG capsule 1,360 mg PO DAILY qoeisqmf-vqos-zgmwhr-hyalur ac 1 EACH capsule 1,500 ea PO DAILY CALCIUM 600+MINERALS TABLET 1 EACH tablet 1 ea PO DAILY cholecalciferol (vitamin D3) 1,000 UNIT tablet 1,000 unit PO DAILY clopidogrel [Plavix] 75 mg tablet 37.5 mg PO DAILY MDD 75mg/24h Qty: 90 3RF Hold Instructions: for 7 days then resume if bleeding stopped tramadol 50 mg Tablet 50 mg PO Q6H PRN PRNQty: 20 0RF Medical Decision Making 87-year-old female with a past medical history of stroke, recent left patella fracture and left distal radius fracture, who presents today after a fall. Patient states that she was opening or closing a window when she turned around to [employer] and she fell backwards and landed on her buttock. She had immediate pain and heard a pop in her right hip. She was unable to get up by herself, and crawled to the kitchen. That is where she was found by family and friends. They tried to get her up to the chair but she had notable pain. When EMS arrived she was somewhat unresponsive, blood pressure was low in the 60s, but after 500 cc and about a minute of gentle stimulation she came to normally. She was brought to the ER for further management. She admits to pain in the right hip. She denies hitting her head. She denies any chest back or abdomen pain. She also has complaints of right knee pain. She is on Plavix. No other complaints at this time. No other modifying factors. Physical exam demonstrates pain and tenderness in the right hip, as well as right knee. No other significant pain or tenderness. No other evidence of significant no acute trauma. Concern for right hip fracture and potentially knee fracture. However because of the patient's age, and comorbidities as well as blood thinner use we will get CT imaging of the head neck chest and abdomen to rule out rib fracture or other intra-abdominal or vertebral pathology. Will evaluate for these etiologies, monitor closely and reassess. 12:[address] findings are negative for the head, neck, and x-ray of the right knee. Notable comminuted intertrochanteric fracture is noted on the right hip. Deformity of the right inferior pubic ramus does not have an acute component in appearance. No other acute fractures are noted per radiology. Still pending CT scan of the chest abdomen pelvis. Upon my review there does appear to be some chronic old rib fractures, but no other significant acute process. Still pending formal radiology read. I did contact orthopedics and discussed the case with Dr. Saab, he confirms the need for surgical admission. Due to her age and comorbidities we will contact medicine for admission. Dr. Saab does request that the patient be made n.p.o. for the time being. Discussed case with hospitalist, he agrees with the assessment and plan. I have extensively reviewed the treatment plan with the patient. I have addressed all patient concerns at this time. I have also discussed the plan with the admitting physician and they agree with the current assessment and plan and have agreed t o assume responsibility for the patient. All parties demonstrate verbal understanding and agreement with our assessment and plan at this time. The documentation in this chart was dictated using [employer] dictation software. Please excuse any dictation errors. FINDINGS: There is a comminuted intertrochanteric fracture of the right hip. Deformity of the right inferior pubic ramus is not have acute appearance. No fractures in the left hemipelvis nor in the left hip evident. IMPRESSION: Intertrochanteric fracture right hip. FINDINGS: Four views There is a E low femoral neck high intertrochanteric fracture of the right hip. Mild displacement. No other fractures lower down in the femur. Vascular calcification in the femoral artery noted. FINDINGS: BRAIN: There are no skull fractures nor fluid in the visualized paranasal sinuses. There is no evidence of intracranial hemorrhage, mass effect, or shift of midline structures. There are no extra-axial fluid collections. The ventricles are not enlarged or shifted and there is no blood within the ventricular system nor within the basal cisterns. Previously described calcification adjacent to the posterior horn of the right lateral ventricle is again noted. CERVICAL SPINE: There is advanced disc space narrowing at C4-5 and degenerative anterolisthesis C4 upon C5 without evidence of fracture. There is approximately 7 millimeters anterior slippage of C4 upon C5 and there is advanced narrowing of the disc space evident as well as elimination-fusion across the disc spaces below this level in the cervical spine. There is advanced multilevel facet arthropathy. There is no facet malalignment. There is no significant facet joint malalignment. No significant osseous lesions evident. IMPRESSION: No acute intracranial findings on this noninfused CT scan of the brain. No evidence of cervical spine fracture, malalignment, nor acute compromise of the cervical spinal canal. Advanced multilevel degenerative disc disease. Also significant anterolisthesis of C 4 upon C5 related to facet arthropathy. FINDINGS: CHEST: LUNGS: There are mild increased markings in left lung base. No large lung contusions and there are no pleural effusions. Previously present pleural effusions seen on 11/03/2022 of resolved. There is no pneumothorax.. MEDIASTINUM: No evidence of sternal fracture or mediastinal hematoma. No hilar nor mediastinal adenopathy. Visualized thyroid unremarkable. Visualized thyroid unremarkable. CARDIAC: Heart size normal calcified mitral valve annulus noted. No pericardial effusion.Ascending thoracic aorta is enlarged measuring 4.1 cm. No evidence of aortic dissection. Descending thoracic aorta is calcified but not enlarged. OSSEOUS: No obvious acute rib fractures identified. Scoliosis. No acute thoracic vertebral fractures evident.. ABDOMEN: There is no ascites. LIVER: No evidence of a patent laceration nor subcapsular hematoma in the liver. No incidental significant liver lesions. GALLBLADDER/BILIARY: There is a calculus in the gallbladder fundus which measures 1.7 by 1.3 cm. No evidence of acute cholecystitis. CBD not dilated. Patch that PANCREAS: No evidence of pancreatic mass. Pancreatic duct diameter is upper normal throughout its length. There are no pancreatic calcifications. No peripancreatic fluid. SPLEEN: Spleen size normal. No laceration evident. No perisplenic fluid. Splenic and portal veins are patent. ADRENALS: There are no significant adrenal masses. KIDNEYS: No renal lacerations nor subcapsular hematomas. No focal kidney findings. No hydronephrosis. No calculi.. ABDOMINAL AORTA: Heavily calcified but not enlarged. Iliac arteries also calcified but not enlarged. LYMPH NODES: There is no retroperitoneal nor paraaortic adenopathy. ABDOMINAL WALL: No evidence of significant anterior abdominal wall nor inguinal hernia. GI: There is no evidence of bowel obstruction.No evidence of bowel wall nor mesenteric hematoma. PELVIS: There is a comminuted low femoral neck and intertrochanteric fracture of the right hip with mild impaction some displacement-angulation. There is significant overlying hematoma lateral to the right hip within the musculature and subcutaneous soft tissues. Within the pelvis there is hematoma-asymmetric size of the ipsilateral right piriformis muscle. There is deformity of the inferior pubic ramus on the right side which has appearance of a healed prior fracture site z no evidence of fracture of the opposite-left hip. No sacral fracture evident. LYMPH NODES: There is no intrapelvic nor inguinal adenopathy. GI: Extensive sigmoid diverticulosis.No evidence of sigmoid diverticulitis.No obvious appendicitis. URINARY BLADDER: Unremarkable and not distended. REPRODUCTIVE: Age-appropriate. OSSEOUS: Right hip fracture as above IMPRESSION: 1. The main acute finding here is a comminuted right hip fracture which is predominately intertrochanteric. There is prominent overlying hematoma in the musculature and subcutaneous fat lateral to the right hip. There is also hematoma within the ipsilateral right piriformis muscle. There is no asymmetric hematoma evident with in the right ileo psoas appear. 2. No other fractures identified in the chest, abdomen, and pelvis. Nonacute appearing healed fracture site in the right inferior pubic ramus noted, as also evident on plain films. 3. Cholelithiasis without cholecystitis. Diverticulosis of the sigmoid without evidence of acute diverticulitis nor other acute inflammatory process in either iliac fossa. 4. The urinary bladder is not distended. Kidneys unremarkable. No ascites. Discussed by phone with ER physician HPI General Date/Time Provider Initiated Documentation: 12/30/22 09:42 . HPI Narrative: 87-year-old female with a past medical history of stroke, recent left patella fracture and left distal radius fracture, who presents today after a fall. Patient states that she was opening or closing a window when she turned around to her [place] and she fell backwards and landed on her buttock. She had immediate pain and heard a pop in her right hip. She was unable to get up by herself, and crawled to the kitchen. That is where she was found by family and friends. They tried to get her up to the chair but she had notable pain. When EMS arrived she was somewhat unresponsive, blood pressure was low in the 60s, but after 500 cc and about a minute of gentle stimulation she came to normally. She was brought to the ER for further management. She admits to pain in the right hip. She denies hitting her head. She denies any chest back or abdomen pain. She also has complaints of right knee pain. She is on Plavix. No other complaints at this time. No other modifying factors. Related Data Home Medications Medication Instructions Recorded Confirmed Calcium 600+Minerals Tablet 1 ea PO DAILY 08/20/12 12/30/22 glucosamin 375 mg-chond 300 1,500 ea PO DAILY 08/20/12 12/30/22 mg-collagen 50 mg-hyaluronic acid 2 mg cap lecithin 1,200 mg capsule 1,360 mg PO DAILY 08/20/12 12/30/22 cholecalciferol (vitamin D3) 25 1,000 unit PO DAILY 01/14/17 12/30/22 mcg (1,000 unit) tablet multivitamin 1 tab PO DAILY 08/25/18 12/30/22 omega 4-ugd-oni-fish oil 1,000 mg 1 cap PO DAILY 08/25/18 12/30/22 (120 mg-180 mg) capsule (Fish Oil) Pill Splitter #1 ea 02/05/22 12/30/22 levothyroxine 25 mcg tablet 25 mcg PO DAILY #90 tabs 09/23/22 12/30/22 clopidogrel 75 mg tablet (Plavix) 37.5 mg PO DAILY patient decreased 10/16/22 12/30/22 dose 02/06/22 #90 tab-caps lisinopril 20 mg tablet 20 mg PO DAILY #90 tabs 11/25/22 12/30/22 tramadol 50 mg tablet 50 mg PO Q6H PRN PRN #20 tabs 12/02/22 12/30/22 Previous Rx's Medication Instructions Recorded Pill Splitter #1 ea 02/05/22 levothyroxine 25 mcg tablet 25 mcg PO DAILY #90 tabs 09/23/22 clopidogrel 75 mg tablet (Plavix) 37.5 mg PO DAILY patient decreased 10/16/22 dose 02/06/22 #90 tab-caps lisinopril 20 mg tablet 20 mg PO DAILY #90 tabs 11/25/22 tramadol 50 mg tablet 50 mg PO Q6H PRN PRN #20 tabs 12/02/22 Allergies Allergy/AdvReac Type Severity Reaction Status Date / Time Influenza Virus Vaccines AdvReac sick for 2 Verified 12/30/22 09:51 wks following flu vaccine 02/24/18 General Stated Complaint: Trauma BRENDAN: 2 Review of Systems All systems reviewed & are unremarkable except as noted in HPI and below PFSH All Active Problems (Updated 12/30/22 @ 13:30 by Emory Cohen DO) Closed right hip fracture (Acute) Left patella fracture (Acute 11/30/22) Fracture of left distal radius (Acute 11/30/22) Hyponatremia (Chronic) History of stroke (Chronic ~2014) Occurred while taking ASA, so switch to Plavix Raynaud phenomenon (Chronic) Hypothyroidism (Chronic) Essential hypertension (Chronic 07/13/14) Osteoporosis, unspecified (Chronic 11/19/12) Never treated with bisphosphonates per pt Carotid artery stenosis (Acute 07/11/11) R-sided endarterectomy; [facility] [place]; 2007 Medical History Abnormal liver function (12/04/12) Anxiety Closed fracture of left proximal humerus (11/21/18) CVA (cerebral vascular accident) (06/22/14) Diverticula of colon (~10/2022) Diverticulosis of small intestine (07/11/11) GI bleeding (~10/2022) Mitral valve prolapse (07/11/11) Other and unspecified hyperlipidemia (11/19/12) Statin-controlled Surgical History Carotid endarterectomy Extraction of cataract (12/21/15) Dr. Marla Nam Right eye Dr. Marla Nam left eye Extraction of cataract (01/04/16) Dr. Marla Nam Right eye Dr. Marla Nam left eye Family History Father , MS at age 65. Heart disease Mother , cva at age 93. Stroke Social History Smoking/Tobacco Use Status: Never Smoking risk assessment performed?: Yes Alcohol Intake: former Drug use: Never Substance use type: does not use Adopted: No Caregiver/Support person: No Foster care: No Housing: house Number of Children: 2 number of grandchildren: 3 Current gender identity: female What is your relationship status?: Panel score (0-1 are the most socially isolated patients): 0 What type of physical activity do you participate in: walking and other Details: weights, squats, leg lifts Duration: 15-30 minutes/day Frequency: 5-6 times per week Seatbelt use: always Drive intox or ride w/intox local [place] truck driver: No Working smoke detector in home: Yes Fire extinguisher in home: Yes Carbon monox detector in home: Yes Do you feel safe at home: Yes Do you feel safe in your relationship?: Yes Victim of physical abuse: No Victim of emotional abuse: No Victim of sexual abuse: No Would you like helpful sources: No Additional Social history: pt lives in a house, daughter lives in the other side of home. Exam Narrative Exam Narrative: 1.Const: Well-nourished, Well-developed, appearing stated age 2.Eyes: PERRL, no conjunctival injection, and symmetrical lids. 3.ENT: Atraumatic external nose and ears. Moist MM. Neck: Symmetric, trachea midline, No thyromegaly. There is no evidence of raccoon eyes, saul sign, CSF rhinorrhea, mastoid tenderness, cranial crepitus, hemotympanum, exophthalmos, or hyphema. Patient demonstrates intact dentition with no signs of tooth avulsion or fracture, no signs of jaw deformity, no evidence of a LeFort's fracture, with an intact palate, nose and orbital region. There is no evidence of a nasal septal hematoma. No proptosis. Jaw closes symmetrically. Airway is clear. 4.CVS: +S1/S2, No murmurs or gallops. Peripheral pulses 2+ and equal in all ex tremities. Brisk capillary refill in all extremities. 5.RESP: Unlabored respiratory effort. Clear to auscultation bilaterally. No wheezes rales or rhonchi 6.GI: Soft, Nontender/Nondistended, No hepatosplenomegaly. No guarding or rebound. 7.MSK: Normocephalic, notable pain in the right hip with logroll or any movement or palpation. Pain is also present in the right knee at the anterior and lateral aspect. Bruising is noted around that. No pain in the left lower extremity. Braces on for the knee and left wrist. No cervical thoracic or lumbar spine tenderness. 8.Skin: Warm, Dry. No rashes or lesions. 9.Neuro: room inspector II-XII grossly intact. Sensation grossly intact, no focal neurologic deficits. 10.Psych: (AAO) x3. Appropriate mood and affect Course Vital Signs Vital signs: Vital Signs Temperature 36.8 C 12/30/22 09:37 Pulse 72 12/30/22 09:37 Respiratory Rate 16 12/30/22 09:37 Blood Pressure 141/60 H 12/30/22 09:37 Pulse Oximetry 96 12/30/22 09:37 Temperature 36.8 C 12/30/22 09:37 Temperature Source Oral 12/30/22 09:37 Pulse 72 12/30/22 09:37 Respiratory Rate 16 12/30/22 09:37 Respiratory Effort Normal 12/30/22 09:48 Respiratory Depth Normal 12/30/22 09:48 Respiratory Pattern Normal 12/30/22 09:48 Blood Pressure 141/60 H 12/30/22 09:37 Pulse Oximetry 96 12/30/22 09:37 Oxygen Delivery Method Room Air 12/30/22 09:37 Oxygen Flow Rate 0 12/30/22 09:37 Pain Level 0 12/30/22 09:37
[2022-12-30] MEDS: MORPHine 4 MG/ML SYR IVP (09:58)
[2022-12-30 10:07] LABS: Abs Immature Grans 0.05 10^3/uL (0.0-0.06); Absolute Basophil Count 0.01 10^3/uL (0.0-0.2); Absolute Eosinophil Count 0.01 10^3/uL (0.0-0.7); Absolute Lymphocyte Count 0.64 10^3/uL (1.2-3.4); Absolute Monocyte Count 0.61 10^3/uL (0.1-0.8); Absolute Neutrophil Count 10.05 10^3/uL (1.2-6.7); Basophils % 0.1; Eosinophils % 0.1; HCT 28.9 % (36.0-46.0); HGB 9.8 g/dL (11.2-15.7); Immature Grans % 0.4; Lymphocytes % 5.6; MCH 30.2 pg (27.0-33.0); MCHC 33.9 % (32.0-36.0); MCV 89 fL (80-95); MPV 9.5 fL (8.0-11.0); Monocytes % 5.4; Neutrophils % 88.4; Platelet Count 235 10^3/uL (130-400); RBC 3.24 10^6/uL (3.93-5.22); RDW-SD 42.3 fL; WBC 11.37 10^3/uL (4.4-10.8)
[2022-12-30 10:22] LABS: PTT Activated 27.2 sec (21.5-31.9); Prothrombin Time 9.8 sec (9.3-11.0)
[2022-12-30 10:24] LABS: ALT 23 U/L (14-59); AST 30 U/L (15-37); Alkaline Phosphatase 121 U/L (46-116); BUN 14 mg/dL (7-18); Bilirubin, Total 0.8 mg/dL (0.2-1.0); CREATININE 0.8 mg/dL (0.55-1.02); Calcium 8.4 mg/dL (8.5-10.1); Chloride 97 mmol/L (98-107); Estimated GFR 71.27 (mL/min/1.73m2); Glucose 134 mg/dL (74-106); Potassium 3.9 mmol/L (3.5-5.1); Sodium 129 mmol/L (136-145); Total Protein 5.8 g/dL (6.4-8.2)
[2022-12-30] MEDS: Normal Saline 500 ML IV (10:35)
--- NOTE | 2022-12-30 11:25 | DI.CT_ITS ---
Exam(s) CT HEAD CERVICAL SPINE WO EXAM: CT HEAD CERVICAL SPINE WO CLINICAL HISTORY: fall, unknown hit head. TECHNIQUE: Imaging Protocol: Axial computed tomography images with coronal and sagittal reformatted images were created and reviewed COMPARISON: CT CT HEAD WO from 11/30/2022 FINDINGS: BRAIN: There are no skull fractures nor fluid in the visualized paranasal sinuses. There is no evidence of intracranial hemorrhage, mass effect, or shift of midline structures. There are no extra-axial fluid collections. The ventricles are not enlarged or shifted and there is no blo od within the ventricular system nor within the basal cisterns. Previously described calcification adjacent to the posterior horn of the right lateral ventricle is a gain noted. CERVICAL SPINE: There is advanced disc space narrowing at C4-5 and degenerative anterolisthesis C4 upon C5 without ev idence of fracture. There is approximately 7 millimeters anterior slippage of C4 upon C5 and there i s advanced narrowing of the disc space evident as well as elimination-fusion across the disc spaces b elow this level in the cervical spine. There is advanced multilevel facet arthropathy. There is no facet malalignment. There is no significant facet joint malalignment. No significant osseous lesions evident. IMPRESSION: No acute intracranial findings on this noninfused CT scan of the brain. No evidence of cervical spine fracture, malalignment, nor acute compromise of the cervical spinal can al. Advanced multilevel degenerative disc disease. Also significant anterolisthesis of C 4 upon C5 related to facet arthropathy. Called by myself to ER. RADIATION DOSE DELIVERED: 1,004.58mGy.cm Total DLP DATA REPOSITORY: All CT scans at this facility are submitted to the National Radiology Data Registry (NRDR) Dose Index Registry (DIR) with the [employer] (ACR). RADIATION OPTIMIZATION: All CT scans at this facility use at least one of these dose optimization te chniques: automated exposure control; mA and/or kV adjustment per patient size (includes targeted exa ms where dose is matched to clinical indication); or iterative reconstruction.
[2022-12-30] MEDS: Normal Saline - Diluent 50 ML VIAL IJ (11:26)
[2022-12-30] MEDS: Omnipaque 350 MG/ML 500 ML BTL-Imaging package 100 ML IJ (11:27)
--- NOTE | 2022-12-30 11:40 | DI.CT_ITS ---
Exam(s) CT CHEST/ABD/PEL W EXAM: CT CHEST/ABD/PEL W CLINICAL HISTORY: fall, hit chest and right hip. TECHNIQUE: Imaging Protocol: Axial computed tomography images with coronal and sagittal reformatted images were created and reviewed CONTRAST MATERIAL: Intravenous: Omnipaque 350 Contrast volume:100 ml Oral: None COMPARISON: CT CT ABDOMEN PELVIS W from 11/03/2022 FINDINGS: CHEST: LUNGS: There are mild increased markings in left lung base. No large lung contusions and there are n o pleural effusions. Previously present pleural effusions seen on 11/03/2022 of resolved. There is no pneumothorax.. MEDIASTINUM: No evidence of sternal fracture or mediastinal hematoma. No hilar nor mediastinal adeno kodak. Visualized thyroid unremarkable. Visualized thyroid unremarkable. CARDIAC: Heart size normal calcified mitral valve annulus noted. No pericardial effusion.Ascending t horacic aorta is enlarged measuring 4.1 cm. No evidence of aortic dissection. Descending thoracic a kiera is calcified but not enlarged. OSSEOUS: No obvious acute rib fractures identified. Scoliosis. No acute thoracic vertebral fracture s evident.. ABDOMEN: There is no ascites. LIVER: No evidence of a patent laceration nor subcapsular hematoma in the liver. No incidental signi ficant liver lesions. GALLBLADDER/BILIARY: There is a calculus in the gallbladder fundus which measures 1.7 by 1.3 cm. No evidence of acute cholecystitis. CBD not dilated. Patch that PANCREAS: No evidence of pancreatic mass. Pancreatic duct diameter is upper normal throughout its le ngth. There are no pancreatic calcifications. No peripancreatic fluid. SPLEEN: Spleen size normal. No laceration evident. No perisplenic fluid. Splenic and portal veins are patent. ADRENALS: There are no significant adrenal masses. KIDNEYS: No renal lacerations nor subcapsular hematomas. No focal kidney findings. No hydronephrosi s. No calculi.. ABDOMINAL AORTA: Heavily calcified but not enlarged. Iliac arteries also calcified but not enlarged. LYMPH NODES: There is no retroperitoneal nor paraaortic adenopathy. ABDOMINAL WALL: No evidence of significant anterior abdominal wall nor inguinal hernia. GI: There is no evidence of bowel obstruction.No evidence of bowel wall nor mesenteric hematoma. PELVIS: There is a comminuted low femoral neck and intertrochanteric fracture of the right hip with mild impa ction some displacement-angulation. There is significant overlying hematoma lateral to the right hip within the musculature and subcutaneous soft tissues. Within the pelvis there is hematoma-asymmetri c size of the ipsilateral right piriformis muscle. There is deformity of the inferior pubic ramus on the right side which has appearance of a healed doris or fracture site z no evidence of fracture of the opposite-left hip. No sacral fracture evident. LYMPH NODES: There is no intrapelvic nor inguinal adenopathy. GI: Extensive sigmoid diverticulosis.No evidence of sigmoid diverticulitis.No obvious appendicitis. URINARY BLADDER: Unremarkable and not distended. REPRODUCTIVE: Age-appropriate. OSSEOUS: Right hip fracture as above IMPRESSION: 1. The main acute finding here is a comminuted right hip fracture which is predominately intertrocha nteric. There is prominent overlying hematoma in the musculature and subcutaneous fat lateral to the right hip. There is also hematoma within the ipsilateral right piriformis muscle. There is no asym metric hematoma evident with in the right ileo psoas appear. 2. No other fractures identified in the chest, abdomen, and pelvis. Nonacute appearing healed fractu re site in the right inferior pubic ramus noted, as also evident on plain films. 3. Cholelithiasis without cholecystitis. Diverticulosis of the sigmoid without evidence of acute div erticulitis nor other acute inflammatory process in either iliac fossa. 4. The urinary bladder is not distended. Kidneys unremarkable. No ascites. Discussed by phone with ER physician RADIATION DOSE DELIVERED: 926.46mGy.cm Total DLP DATA REPOSITORY: All CT scans at this facility are submitted to the National Radiology Data Registry (NRDR) Dose Index Registry (DIR) with the [employer] (ACR). RADIATION OPTIMIZATION: All CT scans at this facility use at least one of these dose optimization te chniques: automated exposure control; mA and/or kV adjustment per patient size (includes targeted exa ms where dose is matched to clinical indication); or iterative reconstruction.
[2022-12-30 12:57] LABS: Bilirubin Negative (Negative); Blood Negative (Negative); Clarity Sl Cloudy (Clear); Glucose Negative (Negative); Ketones Trace mg/dL (Negative); Leukocyte Esterase Negative (Negative); Nitrite Positive (Negative); Specific Gravity 1.015 (1.005-1.025); Urobilinogen 0.2 mg/dL (Up to 0.2); pH 8.5 (5-8)
[2022-12-30 13:05] LABS: Bacteria Many HPF (Negative); C & S Indicated? Yes; Casts Negative LPF (Negative); Crystals Negative HPF (Negative); Epithelial Cells Rare HPF (Negative); Mucus Trace (Negative); Other Cells Negative (Negative); RBC Negative HPF (0-2)
--- NOTE | 2022-12-30 13:27 | HPE_ITS ---
Date of service: 12/30/22 Time of Service: 13:27 Assessment and Plan Assessment and plan (1) Closed right hip fracture: Status: Acute Assessment and plan: Mechanical fall from ground level. In background of osteoporosis. Planned repair tomorrow. Pain controlled adequately. (2) Hyponatremia: Status: Chronic Assessment and plan: Has had a previous history. Not on an SSRI Etiology no clear. A dose of lasix being considered. (3) Anemia: Status: Chronic Assessment and plan: Hgb of 9.8; was 9.8 on 12/02/22. Previously 12.1 on 11/22/22. Check iron studies (4) Left patella fracture: Status: Acute Assessment and plan: Occurred in November of this year. Wears brace. (5) Fracture of left distal radius: Status: Acute Assessment and plan: Occurred in November of this year. Wears a brace. (6) CVA (cerebral vascular accident): Assessment and plan: Pst history. Has had a carotid endarterectomy. On Plavix / 37.5mg daily. Holding. (7) Essential hypertension: Status: Chronic Assessment and plan: Now hypotensive. Monitor Hgb. Hold lisinopril. History of Present Illness History of Present Illness Chief Complaint: Fall with hip pain Narrative: This is an 87 yo female with a PMH of CVA, hypothyroidism, HTN, osteoporosis, carotid artery stenosis, recent left distal radius fx and left patella fracure. She presented to the ED after falling on day of admission. She was opening a window, turned around and fell backwards, landing on her buttocks. She noted immediate pain and hearing a pop in the right hip. She could not stand but did crawl to the kitchen. She was found there by family/friends. EMS noted she had diminished responsiveness with a SBP in the 60's. With a fluid bolus of 500ml she returned to a normal level of responsiveness. She denied striking her head. Her right knee was also causing some pain. She had no CP/palpitations/lightheadedness prior to the fall. No LOC. In the ED Vital Signs Temperature ?36.8 C ?12/30/22 09:37 Pulse ?72 ?12/30/22 09:37 Respiratory Rate ?16 ?12/30/22 09:37 Blood Pressure ?141/60 H ?12/30/22 09:37 Pulse Oximetry ?96 ?12/30/22 09:37 WBC count of 11.37. Hgb 9.9 Na 129. K 3.9. BUN 14. Creatinine 0.8. Glucose 134. Mg 1.7 Radiology imaging showed a right hip intertrochanteric fracture. CT head and c-spine negative for acute findings. + advanced multilevel DDD. CT chest/abd/pelvis: 1.? The main acute finding here is a comminuted right hip fracture which is predominately intertrochanteric.? There is prominent overlying hematoma in the musculature and subcutaneous fat lateral to the right hip.? There is also hematoma within the ipsilateral right piriformis muscle.? There is no asymmetric hematoma evident with in the right ileo psoas appear. 2. No other fractures identified in the chest, abdomen, and pelvis.? Nonacute appearing healed fracture site in the right inferior pubic ramus noted, as also evident on plain films. 3. Cholelithiasis without cholecystitis.? Diverticulosis of the sigmoid without evidence of acute diverticulitis nor other acute inflammatory process in either iliac fossa. 4. The urinary bladder is not distended.? Kidneys unremarkable.? No ascites. Admitted to the hospitalist service. Orthopedic surgery aware and will plan repair. Review of Systems All systems reviewed & are unremarkable except as noted in HPI and below PFSH All Active Problems (Updated 12/30/22 @ 14:01 by Rolo Muse MD) Anemia (Chronic) Closed right hip fracture (Acute) Left patella fracture (Acute 11/30/22) Fracture of left distal radius (Acute 11/30/22) Hyponatremia (Chronic) History of stroke (Chronic ~2014) Occurred while taking ASA, so switch to Plavix Raynaud phenomenon (Chronic) Hypothyroidism (Chronic) Essential hypertension (Chronic 07/13/14) Osteoporosis, unspecified (Chronic 11/19/12) Never treated with bisphosphonates per pt Carotid artery stenosis (Acute 07/11/11) R-sided endarterectomy; [facility] – [place]; 2007 Medical History Abnormal liver function (12/04/12) Anxiety Closed fracture of left proximal humerus (11/21/18) CVA (cerebral vascular accident) (06/22/14) Diverticula of colon (~10/2022) Diverticulosis of small intestine (07/11/11) GI bleeding (~10/2022) Mitral valve prolapse (07/11/11) Other and unspecified hyperlipidemia (11/19/12) Statin-controlled Surgical History Carotid endarterectomy Extraction of cataract (12/21/15) Dr. Marla Nam Right eye Dr. Marla Nam left eye Extraction of cataract (01/04/16) Dr. Marla Nam Right eye Dr. Marla Nam left eye Family History Father , [place] at age 65. Heart disease Mother , cva at age 93. Stroke Social History Smoking/Tobacco Use Status: Never Smoking risk assessment performed?: Yes Alcohol Intake: former Drug use: Never Substance use type: does not use Adopted: No Caregiver/Support person: No Foster care: No Housing: house Number of Children: 2 number of grandchildren: 3 Current gender identity: female What is your relationship status?: Panel score (0-1 are the most socially isolated patients): 0 What type of physical activity do you participate in: walking and other Details: weights, squats, leg lifts Duration: 15-30 minutes/day Frequency: 5-6 times per week Seatbelt use: always Drive intox or ride w/intox van driver: No Working smoke detector in home: Yes Fire extinguisher in home: Yes Carbon monox detector in home: Yes Do you feel safe at home: Yes Do you feel safe in your relationship?: Yes Victim of physical abuse: No Victim of emotional abuse: No Victim of sexual abuse: No Would you like helpful sources: No Additional Social history: pt lives in a house, daughter lives in the other side of home. Meds Allergies and Home Medications Allergies Allergy/AdvReac Type Severity Reaction Status Date / Time Influenza Virus Vaccines AdvReac sick for 2 Verified 12/30/22 09:51 wks following flu vaccine 02/24/18 Home Medications Medication Instructions Recorded Confirmed Type Calcium 600+Minerals Tablet 1 ea PO DAILY 08/20/12 12/30/22 History glucosamin 375 mg-chond 300 1,500 ea PO DAILY 08/20/12 12/30/22 History mg-collagen 50 mg-hyaluronic acid 2 mg cap lecithin 1,200 mg capsule 1,360 mg PO DAILY 08/20/12 12/30/22 History cholecalciferol (vitamin D3) 25 1,000 unit PO DAILY 01/14/17 12/30/22 History mcg (1,000 unit) tablet multivitamin 1 tab PO DAILY 08/25/18 12/30/22 History omega 8-ody-dzj-fish oil 1,000 mg 1 cap PO DAILY 08/25/18 12/30/22 History (120 mg-180 mg) capsule (Fish Oil) Pill Splitter #1 ea 02/05/22 12/30/22 Rx levothyroxine 25 mcg tablet 25 mcg PO DAILY #90 tabs 09/23/22 12/30/22 Rx clopidogrel 75 mg tablet (Plavix) 37.5 mg PO DAILY patient decreased 10/16/22 12/30/22 Rx dose 02/06/22 #90 tab-caps lisinopril 20 mg tablet 20 mg PO DAILY #90 tabs 11/25/22 12/30/22 Rx tramadol 50 mg tablet 50 mg PO Q6H PRN PRN #20 tabs 12/02/22 12/30/22 Rx Exam Narrative Exam Narrative: Const: Well-nourished, Well-developed, appearing stated age. Conversant. NAD HEENT: PERRL, sclera clear. MMM CV: RRR +S1/S2, No murmurs RESP: Unlabored respiratory effort. Clear to auscultation bilaterally. No wheezes rales or rhonchi GI: Soft, Nontender/Nondistended MSK: pain in the right hip with any movement or palpation. Pain is also present in the right knee at the anterior and lateral aspect. No pain in the left lower extremity. Braces on for the knee and left wrist. Skin:No rashes or lesions. Neuro: Sensation grossly intact, no focal neurologic deficits. Psych: (AAO) x3. Appropriate mood and affect Results Labs 12/30/22 14:30 12/30/22 10:01 Labs: Laboratory Results - last 24 hr 12/30/22 12/30/22 12/30/22 10:01 10:01 10:01 WBC 11.37 H RBC 3.24 L Hgb 9.8 L Hct 28.9 L MCV 89 MCH 30.2 MCHC 33.9 RDW 13.0 Plt Count 235 MPV 9.5 Immature Gran % 0.4 Neutrophils % 88.4 Lymphocytes % 5.6 Monocytes % 5.4 Eosinophils % 0.1 Basophils % 0.1 Nucleated RBC % 0.0 Absolute Neutrophils 10.05 H Absolute Lymphocytes 0.64 L Absolute Monocytes 0.61 Absolute Eosinophils 0.01 Absolute Basophils 0.01 PT 9.8 INR 1.0 APTT 27.2 Sodium 129 L Potassium 3.9 Chloride 97 L Carbon Dioxide 25.0 Anion Gap 7.0 BUN 14 Creatinine 0.8 Est GFR (CKD-EPI 2020) 71.27 Glucose 134 H Calcium 8.4 L Total Bilirubin 0.8 AST 30 ALT 23 Alkaline Phosphatase 121 H Total Protein 5.8 L Albumin 3.0 L Urine Color Urine Clarity Urine pH Ur Specific [place] Urine Protein Urine Ketones Urine Blood Urine Nitrite Urine Bilirubin Urine Urobilinogen Ur Leukocyte Esterase Urine RBC Urine WBC Ur Epithelial Cells Urine Crystals Urine Bacteria Urine Casts Urine Mucus Urine Other Ur Culture Indicated? Urine Glucose 12/30/22 12:45 WBC RBC Hgb Hct MCV MCH MCHC RDW Plt Count MPV Immature Gran % Neutrophils % Lymphocytes % Monocytes % Eosinophils % Basophils % Nucleated RBC % Absolute Neutrophils Absolute Lymphocytes Absolute Monocytes Absolute Eosinophils Absolute Basophils PT INR APTT Sodium Potassium Chloride Carbon Dioxide Anion Gap BUN Creatinine Est GFR (CKD-EPI 2020) Glucose Calcium Total Bilirubin AST ALT Alkaline Phosphatase Total Protein Albumin Urine Color Yellow Urine Clarity Sl Cloudy Urine pH 8.5 H Ur Specific [place] 1.015 Urine Protein Negative Urine Ketones Trace H Urine Blood Negative Urine Nitrite Positive H Urine Bilirubin Negative Urine Urobilinogen 0.2 Ur Leukocyte Esterase Negative Urine RBC Negative Urine WBC 10-20 H Ur Epithelial Cells Rare Urine Crystals Negative Urine Bacteria Many Urine Casts Negative Urine Mucus Trace Urine Other Negative Ur Culture Indicated? Yes Urine Glucose Negative Last Vital Signs Temp 36.8 C 12/30/22 09:37 Pulse 66 12/30/22 10:45 Resp 16 12/30/22 09:37 BP 76/31 L 12/30/22 10:45 Pulse Ox 94 12/30/22 10:50 Time Spent Time spent with Patient: 40-54 minutes Time was spent: preparing to see the patient(eg.review tests), obtaining and/or reviewing separately otained hiistory, ordering medications,tests, procedures, referring, communicating with other health early breastfeeding care specialist, indepentently interpreting results, counseling the patient and care coordination
[2022-12-30 14:19] LABS: Lab Add On Test DONE
[2022-12-30] MEDS: MAGNESIUM SULFATE 4 GM/100 ML BAG IVPB (14:27)
[2022-12-30 14:33] LABS: HCT 27.1 % (36.0-46.0)
[2022-12-30 14:33] LABS: Iron 56 ug/dL (50-170); Total Iron Binding Capacity 278 ug/dL (250-450); Transferrin Sat 20 % (15-50)
--- NOTE | 2022-12-30 16:53 | OCONE_ITS ---
Date of service: 12/30/22 Time of Service: 16:30 History of Present Illness History of Present Illness Chief Complaint: Right hip fracture Narrative: Dorie is an 87-year-old who was trying to adjust the window today when she tripped and fell landing onto her right side. She had immediate pain. She is brought to the emergency department by EMS services. She was noted to have some hypotension which responded well to fluid management. She does have some chronic anemia. Fortunately, on 30 November she also had a similar mechanical fall which resulted in a slightly comminuted displaced left distal radius fracture and a stellate, comminuted patella fracture. Both are being treated nonoperatively with bracing. She was making progress with her physical therapist. She currently reports pain about the right hip. She has mild pain o marquez the medial aspect the right knee. She is on Plavix for arterial disease. She denies any chest pain or shortness of breath. She denies any head trauma. She denies any numbness or tingling. She has been wearing the brace in the left wrist all the time and has not removed it. She does report swelling in the fingers but no significant pain within the wrist. She does feel that is feeling better. Consults Consult date: 12/30/22 Requesting physician: Rolo Muse Consult Reason Right hip fracture Assessment and Plan Assessment and plan (1) Fracture of left distal radius: Status: Acute Assessment and plan: Continue nonoperative treatment with the brace. She may remove the brace while in the bed but I recommend wearing it for the use of the left hand or potentially any transfers. (2) Left patella fracture: Status: Acute Assessment and plan: Continued nonoperative treatment. Knee immobilizer in place. Ambulation with the leg locked in extension. No flexion greater than 45 degrees. (3) Closed right hip fracture: Status: Acute Assessment and plan: Dorie has a comminuted fracture of the right proximal femur. I do recommend operative fixation to allow mobilization and position changes. This would be in the form of an intramedullary nail. Given her bone quality and the comminution this is a difficult fracture but we should still be able to obtain adequate reduction and fixation to allow early mobilization. I reviewed this with her and her [id number]. I reviewed the risk of the procedure to include bleeding, infection, pain, stiffness, damage to nerves and vessels, damage to muscle and tendons, hardware prominence, hardware failure, need for repeat procedures. She agreed to proceed. She will be n.p.o. after midnight tonight. Hold Plavix. Medicine admission with clearance for surgery tomorrow. Review of Systems All systems reviewed & are unremarkable except as noted in HPI and below PFSH All Active Problems Anemia (Chronic) Closed right hip fracture (Acute) Left patella fracture (Acute 11/30/22) Fracture of left distal radius (Acute 11/30/22) Hyponatremia (Chronic) History of stroke (Chronic ~2014) Occurred while taking ASA, so switch to Plavix Raynaud phenomenon (Chronic) Hypothyroidism (Chronic) Essential hypertension (Chronic 07/13/14) Osteoporosis, unspecified (Chronic 11/19/12) Never treated with bisphosphonates per pt Carotid artery stenosis (Acute 07/11/11) R-sided endarterectomy; [facility] [place]; 2007 Medical History Abnormal liver function (12/04/12) Anxiety Closed fracture of left proximal humerus (11/21/18) CVA (cerebral vascular accident) (06/22/14) Diverticula of colon (~10/2022) Diverticulosis of small intestine (07/11/11) GI bleeding (~10/2022) Mitral valve prolapse (07/11/11) Other and unspecified hyperlipidemia (11/19/12) Statin-controlled Surgical History Carotid endarterectomy Extraction of cataract (12/21/15) Dr. Marla Nam Right eye Dr. Marla Nam left eye Extraction of cataract (01/04/16) Dr. Marla Nam Right eye Dr. Marla Nam left eye Family History Father , [place] at age 65. Heart disease Mother , cva at age 93. Stroke Social History Smoking/Tobacco Use Status: Never Smoking risk assessment performed?: Yes Alcohol Intake: former Drug use: Never Substance use type: does not use Adopted: No Caregiver/Support person: No Foster care: No Housing: apartment Number of Children: 2 number of grandchildren: 3 Current gender identity: female What is your relationship status?: Panel score (0-1 are the most socially isolated patients): 0 What type of physical activity do you participate in: walking and other Details: weights, squats, leg lifts Duration: 15-30 minutes/day Frequency: 5-6 times per week Seatbelt use: always Drive intox or ride w/intox driver license reviewing officer: No Working smoke detector in home: Yes Fire extinguisher in home: Yes Carbon monox detector in home: Yes Do you feel safe at home: Yes Do you feel safe in your relationship?: Yes Victim of physical abuse: No Victim of emotional abuse: No Victim of sexual abuse: No Would you like helpful sources: No Additional Social history: pt lives in a house, daughter lives in the other side of home. Exam Narrative Exam Narrative: Resting in the hospital bed. No acute distress. Alert and oriented x3. Evaluation the right lower extremity shows some shortening and mild external rotation. No significant bruising seen about the hip itself. Thigh is soft. Range of motion was not tested. Significant pain with palpation around the hip. There is some bruising seen along the medial aspect of the right knee. This is generally tender to palpation Mostly over the area of bruising seen medially. Stability testing and range of motion testing was not possible due to pain in the right hip with knee evaluation. Sensation intact to light touch over the de ep and superficial peroneal nerve and tibial nerve. Foot is warm and well- perfused with capillary fill less than 3 seconds. Evaluation of the left wrist shows resolving ecchymosis. No significant s welling at the level of the wrist but there is in the fingers. She is able to demonstrate active finger extension and finger flexion. She also shows an active wrist extension and wrist flexion. The brace is removed she has minimal pain with palpation and with gentle range of motion. Evaluation of the left knee within the knee immobilizer is performed. This shows no significant swelling. No bruising. With the brace on she is able to demonstrate some active knee extension while I support the thigh. Results Last Vital Signs Temp 36.9 C 12/30/22 16:04 Pulse 69 12/30/22 16:04 Resp 21 12/30/22 16:04 BP 105/57 L 12/30/22 16:04 Pulse Ox 96 12/30/22 16:04 Labs 12/30/22 14:30 12/30/22 10:01 Labs: Laboratory Results - last 24 hr 12/30/22 12/30/22 12/30/22 10:01 10:01 10:01 WBC 11.37 H RBC 3.24 L Hgb 9.8 L Hct 28.9 L MCV 89 MCH 30.2 MCHC 33.9 RDW 13.0 Plt Count 235 MPV 9.5 Immature Gran % 0.4 Neutrophils % 88.4 Lymphocytes % 5.6 Monocytes % 5.4 Eosinophils % 0.1 Basophils % 0.1 Nucleated RBC % 0.0 Absolute Neutrophils 10.05 H Absolute Lymphocytes 0.64 L Absolute Monocytes 0.61 Absolute Eosinophils 0.01 Absolute Basophils 0.01 PT 9.8 INR 1.0 APTT 27.2 Sodium 129 L Potassium 3.9 Chloride 97 L Carbon Dioxide 25.0 Anion Gap 7.0 BUN 14 Creatinine 0.8 Est GFR (CKD-EPI 2020) 71.27 Glucose 134 H Calcium 8.4 L Iron TIBC Transferrin % Sat Total Bilirubin 0.8 AST 30 ALT 23 Alkaline Phosphatase 121 H Total Protein 5.8 L Albumin 3.0 L Urine Color Urine Clarity Urine pH Ur Specific [place] Urine Protein Urine Ketones Urine Blood Urine Nitrite Urine Bilirubin Urine Urobilinogen Ur Leukocyte Esterase Urine RBC Urine WBC Ur Epithelial Cells Urine Crystals Urine Bacteria Urine Casts Urine Mucus Urine Other Ur Culture Indicated? Urine Glucose Add-On Test Request 12/30/22 12/30/22 12/30/22 10:01 10:01 12:45 WBC RBC Hgb Hct MCV MCH MCHC RDW Plt Count MPV Immature Gran % Neutrophils % Lymphocytes % Monocytes % Eosinophils % Basophils % Nucleated RBC % Absolute Neutrophils Absolute Lymphocytes Absolute Monocytes Absolute Eosinophils Absolute Basophils PT INR APTT Sodium Potassium Chloride Carbon Dioxide Anion Gap BUN Creatinine Est GFR (CKD-EPI 2020) Glucose Calcium Iron 56 TIBC 278 Transferrin % Sat 20 Total Bilirubin AST ALT Alkaline Phosphatase Total Protein Albumin Urine Color Yellow Urine Clarity Sl Cloudy Urine pH 8.5 H Ur Specific [place] 1.015 Urine Protein Negative Urine Ketones Trace H Urine Blood Negative Urine Nitrite Positive H Urine Bilirubin Negative Urine Urobilinogen 0.2 Ur Leukocyte Esterase Negative Urine RBC Negative Urine WBC 10-20 H Ur Epithelial Cells Rare Urine Crystals Negative Urine Bacteria Many Urine Casts Negative Urine Mucus Trace Urine Other Negative Ur Culture Indicated? Yes Urine Glucose Negative Add-On Test Request DONE 12/30/22 14:30 WBC RBC Hgb 9.0 L Hct 27.1 L MCV MCH MCHC RDW Plt Count MPV Immature Gran % Neutrophils % Lymphocytes % Monocytes % Eosinophils % Basophils % Nucleated RBC % Absolute Neutrophils Absolute Lymphocytes Absolute Monocytes Absolute Eosinophils Absolute Basophils PT INR APTT Sodium Potassium Chloride Carbon Dioxide Anion Gap BUN Creatinine Est GFR (CKD-EPI 2020) Glucose Calcium Iron TIBC Transferrin % Sat Total Bilirubin AST ALT Alkaline Phosphatase Total Protein Albumin Urine Color Urine Clarity Urine pH Ur Specific [place] Urine Protein Urine Ketones Urine Blood Urine Nitrite Urine Bilirubin Urine Urobilinogen Ur Leukocyte Esterase Urine RBC Urine WBC Ur Epithelial Cells Urine Crystals Urine Bacteria Urine Casts Urine Mucus Urine Other Ur Culture Indicated? Urine Glucose Add-On Test Request Imaging Imaging Studies: X-ray of the right pelvis that shows a comminuted intertrochanteric fracture which is the primary basicervical component with notable comminution of the greater trochanter. Generalized bone demineralization but no extension of the fracture into the shaft.. Deformity of the right pubic ramus from previous fracture. No other pelvic fracture identified. X-ray of the right knee shows notable arthritic change throughout the knee. No fracture identified. Calcified vessels seen throughout.
[2022-12-30] MEDS: Acetaminophen 325 MG TAB PO (19:04)
[2022-12-30] MEDS: traMADol 50 MG TAB PO (19:56)
[2022-12-31] VITALS (9 sets, daily range): BP systolic 93–157; BP diastolic 49–65; PULSE 69–86; RESP 15–20; TEMP 36.2–36.6; O2SAT 94–97; BMI 21.2
[2022-12-31] MEDS: traMADol 50 MG TAB PO ×2 (00:48→20:58)
[2022-12-31 06:05] LABS: Abs Immature Grans 0.03 10^3/uL (0.0-0.06); Absolute Basophil Count 0.01 10^3/uL (0.0-0.2); Absolute Eosinophil Count 0.01 10^3/uL (0.0-0.7); Absolute Lymphocyte Count 1.04 10^3/uL (1.2-3.4); Absolute Monocyte Count 0.65 10^3/uL (0.1-0.8); Absolute Neutrophil Count 4.97 10^3/uL (1.2-6.7); Basophils % 0.1; Eosinophils % 0.1; HCT 24.8 % (36.0-46.0); HGB 8.5 g/dL (11.2-15.7); Immature Grans % 0.4; Lymphocytes % 15.5; MCH 30.4 pg (27.0-33.0); MCHC 34.3 % (32.0-36.0); MCV 89 fL (80-95); MPV 9.7 fL (8.0-11.0); Monocytes % 9.7; Neutrophils % 74.2; Platelet Count 177 10^3/uL (130-400); RDW 13.2 % (11.7-14.6); RDW-SD 43.7 fL; WBC 6.71 10^3/uL (4.4-10.8)
[2022-12-31 06:22] LABS: ALT 19 U/L (14-59); AST 23 U/L (15-37); Albumin 2.7 g/dL (3.4-5.0); Alkaline Phosphatase 106 U/L (46-116); Anion Gap 6.3 mmol/L (3-11); BUN 18 mg/dL (7-18); Bilirubin, Total 0.6 mg/dL (0.2-1.0); CO2 26.7 mmol/L (21.0-32.0); CREATININE 0.7 mg/dL (0.55-1.02); Calcium 7.9 mg/dL (8.5-10.1); Chloride 97 mmol/L (98-107); Estimated GFR 83.65 (mL/min/1.73m2); Glucose 107 mg/dL (74-106); Magnesium 2.3 mg/dL (1.8-2.4); Potassium 4.2 mmol/L (3.5-5.1); Sodium 130 mmol/L (136-145); Total Protein 5.6 g/dL (6.4-8.2)
--- NOTE | 2022-12-31 08:26 | PGE_ITS ---
Date of Service Date of service: 12/31/22 Time of Service: 08:26 Assessment and Plan Assessment and plan (1) Closed right hip fracture: Status: Acute Assessment and plan: Mechanical fall from ground level. In background of osteoporosis. Planned repair today Pain controlled adequately. (2) Hyponatremia: Status: Chronic Assessment and plan: Has had a previous history. Not on an SSRI Etiology no clear. A dose of lasix administered. Na 129 > 130. (3) Anemia: Status: Chronic Assessment and plan: Hgb of 9.8 on admission; was 9.8 on 12/02/22. Previously 12.1 on 11/22/22. Hgb today of 8.5. Fe level low normal at 59. Transferrin % saturation low normal at 20. (4) Left patella fracture: Status: Acute Assessment and plan: Occurred in November of this year. Wears brace. (5) Fracture of left distal radius: Status: Acute Assessment and plan: Occurred in November of this year. Wears a brace. OK to have brace off when lying in bed per ortho. (6) CVA (cerebral vascular accident): Assessment and plan: Past history. Has had a carotid endarterectomy. On Plavix / 37.5mg daily. Holding. (7) Essential hypertension: Status: Chronic Assessment and plan: Now hypotensive. Monitor Hgb. Hold lisinopril. Subjective Subjective Patient reports: no new complaints, still having pain (Only with movement of lower body) and afebrile; denies diarrhea, nausea, vomiting or shortness of breath Interval history since last seen: She reports sleeping well Exam Narrative Exam Narrative: Const: Awake, watching TV. Conversant. NAD HEENT: PERRL, sclera clear. MMM CV: RRR +S1/S2, No murmurs RESP: Unlabored respiratory effort. Clear to auscultation bilaterally. No wheezes rales or rhonchi GI: Soft, Nontender/Nondistended MSK: pain in the right hip with any movement or palpation. Pain is also present in the right knee at the anterior and lateral aspect. No pain in the left lower extremity. Braces on for the knee and left wrist. Neuro: Sensation grossly intact, no focal neurologic deficits. Psych: (AAO) x3. Appropriate mood and affect Objective Last Vital Signs Temp 36.5 C 12/31/22 07:49 Pulse 77 12/31/22 07:49 Resp 16 12/31/22 07:49 BP 122/54 L 12/31/22 07:49 Pulse Ox 97 12/31/22 07:49 Laboratory Results - last 24 hr 12/30/22 12/30/22 12/30/22 10:01 10:01 10:01 WBC 11.37 H RBC 3.24 L Hgb 9.8 L Hct 28.9 L MCV 89 MCH 30.2 MCHC 33.9 RDW 13.0 Plt Count 235 MPV 9.5 Immature Gran % 0.4 Neutrophils % 88.4 Lymphocytes % 5.6 Monocytes % 5.4 Eosinophils % 0.1 Basophils % 0.1 Nucleated RBC % 0.0 Absolute Neutrophils 10.05 H Absolute Lymphocytes 0.64 L Absolute Monocytes 0.61 Absolute Eosinophils 0.01 Absolute Basophils 0.01 PT 9.8 INR 1.0 APTT 27.2 Sodium 129 L Potassium 3.9 Chloride 97 L Carbon Dioxide 25.0 Anion Gap 7.0 BUN 14 Creatinine 0.8 Est GFR (CKD-EPI 2020) 71.27 Glucose 134 H Calcium 8.4 L Magnesium Iron TIBC Transferrin % Sat Total Bilirubin 0.8 AST 30 ALT 23 Alkaline Phosphatase 121 H Total Protein 5.8 L Albumin 3.0 L Urine Color Urine Clarity Urine pH Ur Specific [place] Urine Protein Urine Ketones Urine Blood Urine Nitrite Urine Bilirubin Urine Urobilinogen Ur Leukocyte Esterase Urine RBC Urine WBC Ur Epithelial Cells Urine Crystals Urine Bacteria Urine Casts Urine Mucus Urine Other Ur Culture Indicated? Urine Glucose Add-On Test Request 12/30/22 12/30/22 12/30/22 10:01 10:01 12:45 WBC RBC Hgb Hct MCV MCH MCHC RDW Plt Count MPV Immature Gran % Neutrophils % Lymphocytes % Monocytes % Eosinophils % Basophils % Nucleated RBC % Absolute Neutrophils Absolute Lymphocytes Absolute Monocytes Absolute Eosinophils Absolute Basophils PT INR APTT Sodium Potassium Chloride Carbon Dioxide Anion Gap BUN Creatinine Est GFR (CKD-EPI 2020) Glucose Calcium Magnesium Iron 56 TIBC 278 Transferrin % Sat 20 Total Bilirubin AST ALT Alkaline Phosphatase Total Protein Albumin Urine Color Yellow Urine Clarity Sl Cloudy Urine pH 8.5 H Ur Specific [place] 1.015 Urine Protein Negative Urine Ketones Trace H Urine Blood Negative Urine Nitrite Positive H Urine Bilirubin Negative Urine Urobilinogen 0.2 Ur Leukocyte Esterase Negative Urine RBC Negative Urine WBC 10-20 H Ur Epithelial Cells Rare Urine Crystals Negative Urine Bacteria Many Urine Casts Negative Urine Mucus Trace Urine Other Negative Ur Culture Indicated? Yes Urine Glucose Negative Add-On Test Request DONE 12/30/22 12/31/22 12/31/22 14:30 05:51 05:51 WBC 6.71 RBC 2.80 L Hgb 9.0 L 8.5 L Hct 27.1 L 24.8 L MCV 89 MCH 30.4 MCHC 34.3 RDW 13.2 Plt Count 177 MPV 9.7 Immature Gran % 0.4 Neutrophils % 74.2 Lymphocytes % 15.5 Monocytes % 9.7 Eosinophils % 0.1 Basophils % 0.1 Nucleated RBC % 0.0 Absolute Neutrophils 4.97 Absolute Lymphocytes 1.04 L Absolute Monocytes 0.65 Absolute Eosinophils 0.01 Absolute Basophils 0.01 PT INR APTT Sodium 130 L Potassium 4.2 Chloride 97 L Carbon Dioxide 26.7 Anion Gap 6.3 BUN 18 Creatinine 0.7 Est GFR (CKD-EPI 2020) 83.65 Glucose 107 H Calcium 7.9 L Magnesium 2.3 Iron TIBC Transferrin % Sat Total Bilirubin 0.6 AST 23 ALT 19 Alkaline Phosphatase 106 Total Protein 5.6 L Albumin 2.7 L Urine Color Urine Clarity Urine pH Ur Specific [place] Urine Protein Urine Ketones Urine Blood Urine Nitrite Urine Bilirubin Urine Urobilinogen Ur Leukocyte Esterase Urine RBC Urine WBC Ur Epithelial Cells Urine Crystals Urine Bacteria Urine Casts Urine Mucus Urine Other Ur Culture Indicated? Urine Glucose Add-On Test Request Time Spent with Patient Time Spent with Patient: 25-34 minutes Time was spent: preparing to see the patient(eg.review tests), [facility], ordering medications,tests, procedures, referring, communicating with other health doggy daycare activities director, indepentently interpreting results, counseling the patient and care coordination
--- NOTE | 2022-12-31 09:47 | INITIAL_ITS ---
Date of service: 12/31/22 Time of Service: 09:47 Care Management Initial Assmt Initial Assessment REASON FOR HOSPITALIZATION:: Hip Fracture PREVIOUS FUNCTIONAL STATUS/SOCIAL/FAMILY SUPPORTS:: Sonia lives in [place], independently, although her daughter lives on the other side of the house. She has two children, and three grand children, who are all very supportive. 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 She is very active, and is independent at baseline. CURRENT FUNCTIONAL STATUS:: Dot was being taken down to the OR, earlier than expected, when CM attempted to meet with her. She appeared in good spirits, and is agreeable to surgery to repair her hip. Dot will be evaluated by PT post surgically to determine options for her discharge plan. She is well supported by family, although she has had multiple injuries recently. CM will continue to support discharge planning considerations. ADVANCE DIRECTIVES:: On file; Francis Kearns (son) listed as HCA, Katie Xavier (daughter) listed as alternate HCA. Has patient been provided with info about the portal/API?: Yes Did the patient sign up for the portal?: No CODE STATUS:: Full Code INSURANCE COVERAGE / FINANCIAL ISSUES:: MCR, [employer] CURRENT HOME/COMMUNITY SERVICES/EQUIPMENT:: HH PT/OT, Quad cane PRIMARY CARE PHYSICIAN:: Kaci Leigh POTENTIAL DISCHARGE NEEDS:: Evaluations for further needs, follow up appointments PATIENT/FAMILY EDUCATION NEEDS:: Review discharge instructions and limitations, discussion of self care needs including ask me three. ANTICIPATED BARRIERS TO DISCHARGE:: No barriers at this time; will re evaluate post surgically for mobility limitations. TRANSPORTATION:: Via private vehicle by family. PLAN:: Anticipate Dot will return home once medically cleared, with a resumption of HH PT, OT. Her daughter will drive her home via private vehicle. She will follow up with Ortho, and her discharge plan of care. PFSH All Active Problems Anemia (Chronic) Closed right hip fracture (Acute) Left patella fracture (Acute 11/30/22) Fracture of left distal radius (Acute 11/30/22) Hyponatremia (Chronic) History of stroke (Chronic ~2014) Occurred while taking ASA, so switch to Plavix Raynaud phenomenon (Chronic) Hypothyroidism (Chronic) Essential hypertension (Chronic 07/13/14) Osteoporosis, unspecified (Chronic 11/19/12) Never treated with bisphosphonates per pt Carotid artery stenosis (Acute 07/11/11) R-sided endarterectomy; [facility]; 2007 Medical History Abnormal liver function (12/04/12) Anxiety Closed fracture of left proximal humerus (11/21/18) CVA (cerebral vascular accident) (06/22/14) Diverticula of colon (~10/2022) Diverticulosis of small intestine (07/11/11) GI bleeding (~10/2022) Mitral valve prolapse (07/11/11) Other and unspecified hyperlipidemia (11/19/12) Statin-controlled Surgical History Carotid endarterectomy Extraction of cataract (12/21/15) Dr. Marla Nam Right eye Dr. Marla Nam left eye Extraction of cataract (01/04/16) Dr. Marla Nam Right eye Dr. Marla Nam left eye Family History Father , [place] at age 65. Heart disease Mother , cva at age 93. Stroke Social History Smoking/Tobacco Use Status: Never Smoking risk assessment performed?: Yes Alcohol Intake: former Drug use: Never Substance use type: does not use Adopted: No Caregiver/Support person: No Foster care: No Housing: apartment Number of Children: 2 number of grandchildren: 3 Current gender identity: female What is your relationship status?: Panel score (0-1 are the most socially isolated patients): 0 What type of physical activity do you participate in: walking and other Details: weights, squats, leg lifts Duration: 15-30 minutes/day Frequency: 5-6 times per week Seatbelt use: always Drive intox or ride w/intox maintenance truck driver: No Working smoke detector in home: Yes Fire extinguisher in home: Yes Carbon monox detector in home: Yes Do you feel safe at home: Yes Do you feel safe in your relationship?: Yes Victim of physical abuse: No Victim of emotional abuse: No Victim of sexual abuse: No Would you like helpful sources: No Additional Social history: pt lives in a house, daughter lives in the other side of home. Readmission Within the Past 30 Days Yes or No: Yes Date of First Admission Date of 1st Admission: 11/30/22 Date of this Admission Date of Admission: 12/30/22 This admission was: Through ED Office Visit Since 1st Admission Have you seen your PCP in the office since discharge?: No Had an appointment Been Scheduled?: Yes Date of Scheduled Appointment: 12/30/22 Describe barriers for scheduling or getting an appointment: Dorie was injured and brought to the ED via EMS, on the day of her follow up with PCP appointment. Speicalist Appointments Have you seen any other specialist since your 1st Admission?: Yes Date you saw the Specialist: 12/17/22 Specialist Seen: Pop Forbes I. Interview patient and/or Family Difficulty reaching your doctor or getting an office appt?: No Have you had trouble purchasing/ or taking medication?: No Have you had trouble with getting meals at home?: No Did you feel ready for discharge when you left the last time: Yes Were services received that you thought were set up on disch: Yes What services were received?: HH PT, OT Assessment for Readmission Summary of readmission circumstances, based upon interviews: Dorie was admitted to [facility] in November for a wrist fracture and patellar fracture. At that time, she stated that she is very active, and independent. She returned home with new orders for HH PT/OT. Per report, she was opening a window, and turned around and fell. She heard a pop and had immediate pain from her right hip. She will go to the OR for fixation today. CM will assess for further needs post surgically, after she is evaluated by PT.
--- NOTE | 2022-12-31 12:53 | W.ANESPRE ---
General Info Date of Service Date Performed: 12/31/22 Height: 4 ft 11 in Weight: 47.627 kg Body Mass Index (BMI): 21.2 Surgical Procedure: Operation Date: 12/31/22 16:45 Proposed Procedure Side Surgeon p Hip TFNA, Short Right Robert Saab MD Meds Allergies and Home Medications Allergies Allergy/AdvReac Type Severity Reaction Status Date / Time Influenza Virus Vaccines AdvReac sick for 2 Verified 12/30/22 09:51 wks following flu vaccine 02/24/18 Home Medication Medication Instructions Recorded Calcium 600+Minerals Tablet 1 ea PO DAILY 08/20/12 glucosamin 375 mg-chond 300 1,500 ea PO DAILY 08/20/12 mg-collagen 50 mg-hyaluronic acid 2 mg cap lecithin 1,200 mg capsule 1,360 mg PO DAILY 08/20/12 cholecalciferol (vitamin D3) 25 1,000 unit PO DAILY 01/14/17 mcg (1,000 unit) tablet multivitamin 1 tab PO DAILY 08/25/18 omega 3-lxj-abv-fish oil 1,000 mg 1 cap PO DAILY 08/25/18 (120 mg-180 mg) capsule (Fish Oil) Pill Splitter #1 ea 02/05/22 levothyroxine 25 mcg tablet 25 mcg PO DAILY #90 tabs 09/23/22 clopidogrel 75 mg tablet (Plavix) 37.5 mg PO DAILY patient decreased 10/16/22 dose 02/06/22 #90 tab-caps lisinopril 20 mg tablet 20 mg PO DAILY #90 tabs 11/25/22 tramadol 50 mg tablet 50 mg PO Q6H PRN PRN #20 tabs 12/02/22 Current Visit Medications: Current Medications Generic Name Dose Route Start Last Admin Trade Name Freq PRN Reason Stop Dose Admin Acetaminophen 0 mg 12/30/22 13:34 12/30/22 19:04 Acetaminophen 325 Mg Tab PO 650 mg Q4H PRN PRN Administration Al Hydrox/Mg Hydrox/Simethicone 30 ml 12/30/22 16:24 Mylanta Suspension 30 Ml Cup PO Q4H PRN PRN Calcium Carbonate 1.5 gm 12/31/22 08:30 12/31/22 07:55 Calcium Carbonate 1.5 Gm Tab PO Not Given DAILY DEYA Cholecalciferol 1,000 units 12/31/22 08:30 12/31/22 07:55 Cholecalciferol (Vitamin D3) 1,000 Unit Tab PO Not Given DAILY DEYA Levothyroxine Sodium 25 mcg 12/31/22 06:00 12/31/22 07:03 Levothyroxine 25 Mcg Tab PO Not Given DAILY@0600 DEYA Magnesium Hydroxide 30 ml 12/30/22 13:34 Milk Of Magnesia 30 Ml Cup PO DAILY PRN PRN Morphine Sulfate 4 mg 12/30/22 15:44 Morphine 4 Mg/Ml Syr IVP Q4H PRN PRN Ondansetron HCl 4 mg 12/30/22 13:39 Ondansetron 4 Mg/2 Ml Vial IVP Q4H PRN PRN Polyethylene Glycol 17 gm 12/30/22 13:34 Polyethylene Glycol 3350 17 Gm Packet PO DAILY PRN PRN Constipation Tramadol HCl 50 mg 12/30/22 16:23 12/31/22 00:48 Tramadol 50 Mg Tab PO 50 mg Q4H PRN PRN Administration PFSH Active Problems Active Problems: Problem Status Onset Code Anemia D64.9 Closed right hip fracture S72.001A Left patella fracture 11/30/22 S82.002A Fracture of left distal radius 11/30/22 S52.502A Hyponatremia E87.1 History of stroke ~2014 Z86.73 Raynaud phenomenon I73.00 Hypothyroidism E03.9 Essential hypertension 07/13/14 I10 Osteoporosis, unspecified 11/19/12 M81.0 Carotid artery stenosis 07/11/11 I65.29 Medical History Medical History Abnormal liver function (12/04/12) Anxiety Closed fracture of left proximal humerus (11/21/18) CVA (cerebral vascular accident) (06/22/14) Diverticula of colon (~10/2022) Diverticulosis of small intestine (07/11/11) GI bleeding (~10/2022) Mitral valve prolapse (07/11/11) Other and unspecified hyperlipidemia (11/19/12) Statin-controlled Surgical History Surgical History Carotid endarterectomy Extraction of cataract (12/21/15) Dr. Marla Nam Right eye Dr. Marla Nam left eye Extraction of cataract (01/04/16) Dr. Marla Nam Right eye Dr. Marla Nam left eye Tobacco Smoking/Tobacco Use Status: Never Alcohol Alcohol Intake: former Substance Use Substance use: Never Substance use type: does not use Vital Signs and Lab Results Vital Signs Most Recent Vital Signs in EMR: Most Recent Vital Signs Temp Pulse Resp BP Pulse Ox 36.5 C 77 16 122/54 L 97 12/31/22 07:49 12/31/22 07:49 12/31/22 07:49 12/31/22 07:49 12/31/22 07:49 Lab Results 12/31/22 05:51 12/31/22 05:51 Blood Type / Crossmatch: No Data to Display Complete Blood Count: White Blood Count 6.71 10^3/uL (4.4-10.8) 12/31/22 05:51 Red Blood Count 2.80 10^6/uL (3.93-5.22) L 12/31/22 05:51 Hemoglobin 8.5 g/dL (11.2-15.7) L 12/31/22 05:51 Hematocrit 24.8 % (36.0-46.0) L 12/31/22 05:51 Platelet Count 177 10^3/uL (130-400) 12/31/22 05:51 Complete Metabolic Panel: Sodium 130 mmol/L (136-145) L 12/31/22 05:51 Potassium 4.2 mmol/L (3.5-5.1) 12/31/22 05:51 Chloride 97 mmol/L (98-107) L 12/31/22 05:51 Carbon Dioxide 26.7 mmol/L (21.0-32.0) 12/31/22 05:51 BUN 18 mg/dL (7-18) 12/31/22 05:51 Creatinine 0.7 mg/dL (0.55-1.02) 12/31/22 05:51 Est GFR (CKD-EPI 2020) 83.65 (mL/min/1.73m2) 12/31/22 05:51 Magnesium 2.3 mg/dL (1.8-2.4) 12/31/22 05:51 Calcium 7.9 mg/dL (8.5-10.1) L 12/31/22 05:51 Albumin 2.7 g/dL (3.4-5.0) L 12/31/22 05:51 Glucose 107 mg/dL (74-106) H 12/31/22 05:51 Liver Function Panel: Alanine Aminotransferase (ALT/SGPT) 19 U/L (14-59) 12/31/22 05:51 Aspartate Amino Transf (AST/SGOT) 23 U/L (15-37) 12/31/22 05:51 Coagulation Panel: INR International Normalized Ratio 1.0 (0.9-1.1) 12/30/22 10:01 Prothrombin Time 9.8 sec (9.3-11.0) 12/30/22 10:01 Activated Partial Thromboplast Time 27.2 sec (21.5-31.9) 12/30/22 10:01 Cardiac Panel: No Data to Display Arterial Blood Gas: No Data to Display Venous Blood Gas: No Data to Display Pancreas Panel: No Data to Display Thyroid Panel: No Data to Display Infectious Disease: No Data to Display Blood Cultures: No Data to Display Toxicology Panel: No Data to Display Imaging and Studies Imaging and Studies Study information below may be from another EMR and interpreted by another provider. Please see original notes in EMR for more complete details. EKG Summary: Conclusion Sinus rhythm was sinus arrhythmia Rate 60's-70's appropriate intervals LVH with secondary repolarization abnormality no ST segement or T wave abnormalities to suggest occlusive [place] 11/03/22 Echocardiogram Summary: Conclusion Moderate concentric left ventricular hypertrophy. Ejection fraction is 60%. Wall motion is normal Normal right ventricular size and systolic function Left atrium is moderately dilated. Right atrial size is normal Aortic valve is sclerotic and trileaflet. There is mild to moderate aortic regurgitation. There is no aortic stenosis Severe mitral annular calcification. Moderate mitral stenosis and regurgitation Normal tricuspid valve with mild regurgitation. Estimated right ventricular systolic pressure is 34 mmHg 12/30/22 Carotid Artery Summary:: SUMMARY: No evidence of significant carotid stenosis. CC: 06/30/14 Anesthesia Assessment and Plan Anesthesia History Personal History: No History of Anesthesia Complications Family History: No Family History of Anesthesia Complications Exercise Tolerance Exercise Tolerance: Metabolic Equivalents<4 Pertinent Negatives Pertinent Negatives: No Major Cardiovascular Symptoms or Complaints and No Major Pulmonary Symptoms or Complaints Cardiac & Pulmonary Exam Cardiac Exam: Normal S1/S2 Heart Sounds Pulmonary Exam: Clear Bilateral Breath Sounds Cardiac and Pulmonary Comment:: Hx of stroke 2015 Implantable Cardiac Device Does patient have a Pacemaker or an ICD?: No Airway Exam Known Difficult Airway: No Mallampati Class: 2 Mouth Opening: Normal (> 3cm) Thyromental Distance: Greater than 3 cm Neck Range of Motion: Full ROM Neck Circumference: Normal Teeth Condition: Edentulous (dentures at home) ASA Classification ASA Score: ASA 3 Emergency Case?: No NPO Status NPO Status: NPO Clears >2 hours, Solids >8 hours Anesthesia Plan Resuscitation Status: Full Code Anesthesia Technique: General Anesthesia Airway Planned: Endotracheal Tube Monitors Used: Standard Monitors Preoperative Comments:: Last Plavix dose 12/29/22 evening Plan MALOUA
[2022-12-31] MEDS: Lactated Ringers 1,000 ML 30 ML IV (14:19)
--- NOTE | 2022-12-31 15:25 | DI.RAD_ITS ---
Exam(s) XR HIP RT IN OR EXAM: XR HIP RT IN OR CLINICAL HISTORY: RIGHT HIP FRACTURE. TECHNIQUE: 2D and realtime digital imaging was performed. COMPARISON: No exams were available for comparison FINDINGS: Fluoroscopy was provided in the OR. Hard copy images show placement intramedullary jeffry in the prox imal femur for fracture fixation. The alignment appears satisfactory. Please see procedure note for details. Fluoro time: 56.7seconds RADIATION DOSE DELIVERED: leonardo Mendez=6.45 mGy
--- NOTE | 2022-12-31 16:04 | ROE_ITS ---
Date of service: 12/31/22 Time of Service: 15:40 Operative Note Operative Note DATE OF PROCEDURE: 12/31/22 PRE-OP DIAGNOSIS: Right Intertrochanteric Femur Fracture POST-OP DIAGNOSIS: same PROCEDURE: Right Intramedullary Fixation of Proximal Femur Fracture SURGEON: Robert Saab ANESTHESIA TYPE: General LMA/ETT Refer to Anesthesia Record ESTIMATED BLOOD LOSS: 200 PATHOLOGY: none sent COMPLICATIONS: None Patient was transported to: PACU Patient's condition: stable Implants: Depuy-Synthes TFNA 11mm x 170mm Indications: Dorie who presented to the Emergency Department after a fall. X-rays confirmed the diagnosis of a intertrochanteric fracture of the proximal femur. I reviewed the possible treatment options and given the fracture of the femur, I recommened operative fixation. I discussed the technical details of the surgery. I reviewed the risks such as bleeding, infection, pain, stiffness, malunion, nonunion, hardware prominence, hardware faiilure, malrotation, avascular necrosis, blood clot. Despite these risks, she agreed to proceed. Findings: There was a fracture of the proximal femur which was able to be reduced with traction and internal rotation and external manipulation. Procedure Description: Dorie was taken back to the operating room. A spinal anesthestic was then administered. The feet were wrapped with cast padding and then placed into the foot holders. Care was taken to protect the skin and make sure the heels were fully down and the boots were stable. The patient was then positioned onto the fracture table. The patient was then slid down onto a perineal post. The arm of the operative side was then placed across the chest and secured. The nonoperative leg was scissored. A gentle reduction was then performed with traction and internal rotation and gentle external manipulation. Prophylactic antibiotics in the form of Cefazolin were administered. 1g of Tranxemic Acid was given intravenously within 30 minutes of incision. The right leg was then prepped with Chloraprep and draped in a standard fashion with shower-curtain type drape with Iodine impregnated skin protection. A timeout to confirm correct identity, side and site, procedure, allergies, anesthesia, and medical concerns was performed. Using fluoroscopy, the starting point was marked over the lateral hip, proximal to the tip of the greater trochanter. A 3cm incision was made through skin and the fascia of the gluteus musculature until the tip of the trochanter was palpable. The starting wire was placed onto the tip, just slightly on the media aspect, and centered in the AP plane. Using a carlyn, the starting guide wire was buried into the bone. A lateral x-ray confirmed appropriate position and the guidewire was advanced to the level of the lesser trochanter. With a tissue protector, the proximal femur was opened with the opening reamer. The short TFNA was chosen for this case and a Synthes TFNA [id number] nail was selected and opened on the back table. The nail was assembled to the aiming arm on the back table and confirmed to be aligned with the triple sleeve for blade insertion. Using manual force the nail was advanced into the femur. A few light mallet blows advanced the nail to its appropriate position. The triple sleeve was inserted through the targeting arm and the skin, soft tissue, and IT band was then incised. The triple sleeve was advanced down to the lateral femur. A guidewire was advanced into the femoral head where it was noted to be centered. A lateral x-ray was used to confirm centered positioning on the lateral. Happy with the length of the guidewire, this was measured. A 95mm helical blade was opened. The lateral cortex was opened and the path of the blade was reamed with a tapered reamer to appropriate depth. The helical blade was malletted into position and confirmed to be appropriately located on fluoroscopy. The set screw was advanced to a half turn shy of fully tightened, allowing for the helical blade to slide. The fracture was compressed and then locked before removing the targeting device. The targeting device was removed. AP and lateral x-rays of the hip confirmed appropriate positioning within the femur and with good alignment of the fracture. Using the targeting arm, the skin was incised for placement of the distal locking screw. The trochar was inserted through the skin and IT band zeynep n onto the lateral cortex of the femur. The 4.2mm drill was advanced across the femur and through the nail. This was measured and an appropriately sized 5.0mm screw was placed. The targeting arm was removed. Final x-rays were obtained. The wounds were thoroughly irrigated. A cocktail consisting of 123mg of Ropivacaine, 0.25mg of Epinephrine, 0.04mg of Clonidine, and 15mg of Ketorolac, diluted to 50cc was injected throughout the wounds both deep and superficially. The deep fascia of the proximal two wounds was reapproximated with a 0 Vicryl. The deep tisses were closed with a 2-0 Vicryl and the skin was closed with a running subcuticular Monocryl. The wounds were dressed with a Mepilex silver dressing. At the end of the case, all counts were correct. Dorie tolerated the procedure well without known complication and was taken to the PACU for recovery. Physical therapy will start post-operatively, weigh-bearing as tolerated with assistive devices. Anticoagulation will start within 12-24 hours. 3 doses of post-operative antibitiocis for prophylaxis will be administered.
--- NOTE | 2022-12-31 16:13 | W.ANESPOSTOP ---
Postoperative Evaluation Date, Time and Location Date Performed: 12/31/22 Time Performed: 16:14 Patient Location: PACU Vital Signs Most Recent Imported Vital Signs: Most Recent Vital Signs Temp Pulse Resp BP Pulse Ox 36.5 C 77 16 122/54 L 97 12/31/22 07:49 12/31/22 07:49 12/31/22 07:49 12/31/22 07:49 12/31/22 07:49 Pain Score Most Recent Pain Score: Most Recent Pain Score Pain Level 0 12/31/22 07:49 Assessment Mental Status: Awake (Alert & Oriented to Patient Baseline) Airway and Respiratory Function: Patent airway with normal (patient baseline) respiratory exam Cardiovascular Function: Hemodynamically Stable Hydration Status: Adequately Hydrated Nausea & Vomiting: No Nausea or Vomiting Pain: Pt. Denies Any Pain Peripheral Nerve Block: Patient did not receive a nerve block
[2022-12-31] MEDS: ceFAZolin 1 GM/50 ML BAG IVPB (20:58)
[2023-01-01] MEDS: traMADol 50 MG TAB PO ×3 (04:06→20:41)
[2023-01-01] MEDS: ceFAZolin 1 GM/50 ML BAG IVPB ×2 (04:24→11:54)
[2023-01-01] MEDS: Levothyroxine 25 MCG TAB PO (06:26)
[2023-01-01 06:47] LABS: Abs Immature Grans 0.04 10^3/uL (0.0-0.06); Absolute Basophil Count 0.01 10^3/uL (0.0-0.2); Absolute Lymphocyte Count 0.98 10^3/uL (1.2-3.4); Absolute Monocyte Count 0.85 10^3/uL (0.1-0.8); Absolute Neutrophil Count 5.78 10^3/uL (1.2-6.7); Basophils % 0.1; HCT 22.5 % (36.0-46.0); HGB 7.7 g/dL (11.2-15.7); Immature Grans % 0.5; Lymphocytes % 12.8; MCH 30.7 pg (27.0-33.0); MCHC 34.2 % (32.0-36.0); MCV 90 fL (80-95); MPV 10.6 fL (8.0-11.0); Monocytes % 11.1; Neutrophils % 75.5; Platelet Count 178 10^3/uL (130-400); RBC 2.51 10^6/uL (3.93-5.22); RDW 13.3 % (11.7-14.6); WBC 7.66 10^3/uL (4.4-10.8)
[2023-01-01 07:09] LABS: Anion Gap 4.8 mmol/L (3-11); BUN 25 mg/dL (7-18); CO2 27.2 mmol/L (21.0-32.0); CREATININE 0.8 mg/dL (0.55-1.02); Calcium 7.9 mg/dL (8.5-10.1); Chloride 97 mmol/L (98-107); Estimated GFR 71.27 (mL/min/1.73m2); Glucose 114 mg/dL (74-106); Potassium 4.7 mmol/L (3.5-5.1); Sodium 129 mmol/L (136-145)
[2023-01-01 07:29] VITALS: BP 118/72; PULSE 82; RESP 18; TEMP 36.6; O2SAT 95
[2023-01-01] MEDS: Cholecalciferol (Vitamin D3) 1,000 UNIT TAB 1000 UNITS PO (08:32)
[2023-01-01] MEDS: Calcium Carbonate 1.5 GM TAB PO (08:32)
--- NOTE | 2023-01-01 10:18 | PDOC.CMPRO ---
Date of service: 01/01/23 Time of Service: 10:18 Care Management Progress Note Progress Note Text Progress Note Text: S/O: Dorie was sitting up in bed when CM met with her. She was pleasant and engaged in conversation. She reported that she doesn't have much pain, but she has not been up with PT yet. CM discussed her discharge plan, specifically options including returning home with a resumption of HH services vs going to short term rehab. Dorie feels that she may benefit from short term rehab, and asked that a referral is sent to [facility], as she feels it will be best for her family to be able to visit her if she remains local. CM sent the referral as requested. CM will continue to follow. A: Dorie is an 87 year old female admitted to [facility] on 12/30/22 for a hip fracture. P: Dorie went to the OR yesterday for fixation of her hip fracture. She will be evaluated by PT today to help determine her discharge plan. She will likely return home with HH services vs SNF for short term rehab prior to returning home. She will follow up with Ortho, her PCP and her discharge plan of care. CM will continue to follow.
[2023-01-01] MEDS: Normal Saline Flush 10 ML SYR IVP (12:07)
--- NOTE | 2023-01-01 13:15 | DI.RAD_ITS ---
Exam(s) XR KNEE LT 2V AP,LAT EXAM: XR KNEE LT 2V AP,LAT CLINICAL HISTORY: f/u L patella fracture. TECHNIQUE: 2D digital imaging was performed. COMPARISON: CR XR KNEE RT 2V AP,LAT from 12/30/2022 FINDINGS: Two views Limited two view study reveals no evidence of acute fracture. Advanced narrowing of the lateral comp artment is noted. Vascular calcification noted. IMPRESSION: No fracture evident. DATA REPOSITORY: RADIATION DOSE DELIVERED:
--- NOTE | 2023-01-01 13:16 | DI.RAD_ITS ---
Exam(s) XR WRIST LT COMPLETE EXAM: XR WRIST LT COMPLETE CLINICAL HISTORY: f/u L wrist frx. TECHNIQUE: 2D digital imaging was performed. COMPARISON: No exams were available for comparison FINDINGS: 3 views Subacute appearing Colles' fracture of the distal radius minimal displacement. Also subacute appeari ng nondisplaced fracture of the base of the ulnar styloid. There is no significant ulnar variance. Scaphoid and scapholunate distance are intact. Significant degenerative changes are noted at the 1st carpometacarpal joint. IMPRESSION: Distal radius and ulnar styloid base fractures as described above. Appearance is subacute. DATA REPOSITORY: RADIATION DOSE DELIVERED:
--- NOTE | 2023-01-01 14:26 | WOUNDCONS_ITS ---
- If Service Date Differs Date of service: 01/01/23 Time of Service: 14:00 Wound Initial Evaluation Narrative: Patient is a 87 yof. Her PMX is significant for Anemia, Hyponatremia, HTN, Osteoporosis. Patient was brought in by EMS after she fell adjusting a window in her bedroom, she landed on her right hip, which caused her to have immediate pain. She was able to drag herself to the kitchen, she remained there for and unknown length of time before being found by family. The patient has a couple of other fx from a previous accident. Dr Saab has repaired the hip, at some point a wound in the sacral area was discovered, wound nursing was consulted to recommend a treatment. Interviewing the patient, she is alert and oriented globally, She can recall the circumstances of her accident. she reported that up to this incident, she has been very active. She details that she has a good diet, and understands the need for increased protein to help with the healing of her wounds. Her primary nurse Linda, is present through out the consult to assist. Her H&H is noted to be low, and this is pointed out to the hospitalist on duty. Other labs, allergies, H&P and pertinent information are reviewed prior to the consult. Patient signs the consent. Body Four View: 1 - Stage 3 - Wound Lumbar/Sacral Wound Type: Pressure Ulcer Pressure Ulcer Stage: III Wound General Appearance: Reddened, Bleeding, Unapproximated Wound Bed Greatest Portion: Red (Granulation) Wound Surrounding Tissue Appearance: [place], Dark Red, Purple Percent of Wound Bed Granulated/Red: 100 Wound Length: 1.9 cm Wound Width: 1.1 cm Wound Depth: 0.4 cm Wound Drainage Amount: Minimal Wound Drainage Odor: None/Absent Wound Drainage Description: Bloody Wound Topical Solution/Irrigant: Saline Irrigant Wound Debridement Method: Gauze Wound Debridement Result: Healthy Tissue Revealed Wound Debridement Amount of Tissue Removed: Minimal - Circulation, Sensation, Motion Peripheral Pulse Strength: Normal Capillary Refill: Less than 3 seconds Sensation Description: Within Normal Limits Skin Temperature: Warm Skin Color: Pale - JOEL Comment:: NA - Pain Pain Level: 0 Additional Other Comments: Patient stated she would need pain control later for her repaired hip. Primary nurse aware and acknowledged. Patient with a recent hx of falls with fx and injury. She is aware of the need to offload pressure, she is agreeable to Primary nurse aware of the need to turn patient. - Photo Photo: - Treatment/Dressing Change Topicals/Ointments: None Cleanse With: Saline Dressing Types: Other (Optiview 7X7) - Nutrition Education Reviewed Nutrition Education: Yes Note: Patient notes the need for increased protein. She details her daily intake to this nurse - Recomendation Recomendation:: Sacral wound. Cleanse with Normal saline, then pat dry. Apply skin prep to the alissa wound skin. Apply an Optiview 7X7 to the wound for protection. Turn patient every 2 hours to offload pressure, and prevent further skin breakdown. Change every 3 days or PRN, Check placement every shift. Physcian/Nurse Practioner Notified: Yes (Dr. Muse) Treatment Time - Time Total Time Spent with Patient: 45 minutes - Patient Will be Seen Weekly Treatment: daily - For: For:: 1 week
--- NOTE | 2023-01-01 14:38 | PT.INIE ---
PT Notes Visit Reasons: Hip Fracture Inpatient Physical Therapy Evaluation Date: [01/01/2023] Referring Doctor: [Dr. Robert Saab] PT Orders: PT CONSULT: Evaluation and treat, mobility Precautions: WBAT s/p IMN Right Proximal femur (PMH Left patella fx, hinged brace, left wrist fx cock-up splint) Patient Profile/Admitting Diagnosis: Dorie is an 87 yo female with a PMH of CVA, hypothyroidism, HTN, osteoporosis, carotid artery stenosis, recent left distal radius fx and left patella fracture 11/30.? She presented to the ED 12/30 after falling backward, dx of fx right hip, IMN fixation 12/31/2022 . She had fx left wrist and left patella from a fall 11/30/2022 and has been wearing a brace on each, ambulating with cane at home with services. PMHX: All Active Problems? Anemia (Chronic) Closed right hip fracture (Acute) Left patella fracture (Acute 11/30/22) Fracture of left distal radius (Acute 11/30/22) Hyponatremia (Chronic) History of stroke (Chronic ~2014) Occurred while taking ASA, so switch to PlavixRaynaud phenomenon (Chronic) Hypothyroidism (Chronic) Essential hypertension (Chronic 07/13/14) Osteoporosis, unspecified (Chronic 11/19/12) Never treated with bisphosphonates per ptCarotid artery stenosis (Acute 07/11/11) [place] [facility] [place] Medical History? Abnormal liver function (12/04/12) Anxiety Closed fracture of left proximal humerus (11/21/18) CVA (cerebral vascular accident) (06/22/14) Diverticula of colon (~10/2022) Diverticulosis of small intestine (07/11/11) GI bleeding (~10/2022) Mitral valve prolapse (07/11/11) Other and unspecified hyperlipidemia (11/19/12) Statin-controlled Surgical History? Carotid endarterectomy Extraction of cataract (12/21/15) Dr. Marla Nam Right eye Dr. Marla Nam left eyeExtraction of cataract (01/04/16) Dr. Marla Nam Right eye Dr. Marla Nam left eye Social History/Home Situation: Pt. lives alone, single floor living with a few steps getting into apartment. Daughter lives next door. Injuries of left wrist fracture and left patella fracture ambulatory status in home with cane using cane with right UE. Current Functional Limitations: WBAT on right, per patient unable to bear weight thru the left UE due to the wrist although braced may need platform when using RW. Equipment Owned/DME: cane Subjective: I was lifting weights in the basement and the cable gave way and I fell backward I don't have very much pain in my hip unless I try to move Objective: General Observation: Dot is laying in bed, semi rolled on left side for relief of potential pressure on hips and reports changing right to left every 2 hours per nursing staff. In sitting position at edge of bed right hip IR and difficulty bringing to neutral position. Pressure Ulcer sacral area thus positioning. Mukherjee. IV ports RUE Mental Status: A and O x 4 however reports last fall was in October best I could discern from her records was that she had injury in November 30. She also had hosp admission for another issue in October. Pain: 1/10 right lateral hip Vital Signs: Stable per nursing records ROM: Right Upper Extremity: WFL with shoulder elevation approximately 100 degrees full elbow flexion extension and functional wrist flexion extension Left Upper Extremity: Shoulder WFL with elevation approximately 100 degrees, elbow flexion full extension full, left wrist immobilized in cock-up splint Right Lower Extremity: limited S/p IM left hip hip flexion in supine 60 degrees, PROM hip flex 80 abduction 10 ,ER 0, IR 20 knee 0?90, WFL ankle dorsiflexion plantarflexion Left Lower Extremity: In brace knee 0?60 due to limitation of brace, out of brace 0?110, AROM hip flexion 100, abduction 25, ankle WFL Strength: Right Upper Extremity: WFL Left Upper Extremity: Left wrist unable to evaluate in cock-up splint, elbow flexion extension 4/5, shoulder WFL Right Lower Extremity: Hip AB duction 1/5, ADD duction 2/5, hip flexion 2/5, knee extension 2/5, knee flexion 3/5, DF 4/5, PF NT Left Lower Extremity: Hip AB duction 3/5, abduction 3/5, flexion 3/5, knee extension 3/5, knee flexion 3/5, DF 4/5 PF not tested Sensation: Intact to light touch Bed Mobility/Transfers: Supine to sit mod assist of 1, difficulty utilizing left UE off of wrist give trial to put pressure through fist of the left upper extremity patient able to put pressure through her elbow but then unable to use left hand to use rail, good use with right UE, needs assist with right LE. Sit to supine mod assist of 1 primarily to left right LE back into the bed Repositioning in bed towards the head of the bed mod assist of 2 patient is able to bend both knees to aid with assist of repositioning. Sit to stand from bed to RW unable to perform with 3 attempts, needs major verbal cueing for hand placement unable to push through left UE with closed fist off of bed will need to consider alternative methods patient also sitting at edge of bed with right LE in IR and is not pushing down through her right LE to assist with sit to stand. Gait: Unable to transfer to standing thus unable to perform ambulation at RW. I am suspecting with PMH of left wrist that she will need a platform on the RW at least initially based on inability to transfer sit to stand with strength of LE. Balance: Static Sitting: Fair Dynamic Sitting: Fair Static Standing: NT Dynamic Standing: NT Special Tests: Mobility Limitations Standardized Measure [facility] AM-PAC 6 clicks Basic Mobility Inpatient Short Form: Raw Score:8 CMS Score: 87% Informed Consent/Education: Patient instructed in purpose of PT consult and plan of care. Treatment: Functional activity(54779) 8' Activity to aid with ability to transfer and pre-gait as well as bed mobility. In supine bridging only able to unweight buttocks x5, sitting at edge of bed knee extension right x5, left x10, sitting at edge of bed with feet on the floor arms at side attempting to push up through arms and legs to go sit to stand x5. In sitting right hip ER with tactile cueing x5 Assessment: Patient is a 87year old female referred to physical therapy services with the diagnosis of status post IMN right proximal femur 12/31/2022, with PMH of left wrist fracture and left patella fracture wearing braces on both from 11/30/2022. Patient presents with clinical signs and symptoms consistent with status post IMN right proximal femur 12/31/2022 , as demonstrated by the following impairment level findings: Pain right hip, decreased mobility right LE, decreased strength right LE and left LE, decreased ROM and strength left wrist, limited ability for transfers, decreased bed mobility, impaired ambulatory status unable to evaluate today is unable to transfer sit to stand. Patient likely will be able to ambulate with rolling walker suspect will require platform for left UE as likely will require full weightbearing on UE due to weakness of right LE.. Impairments are contributing to the following functional limitations: AMPAC score. Patient is assessed as a Moderate [id number] complexity based on the following: History: Patient lives alone, status post right IMN proximal femur, status post left wrist fracture, status post left patella fracture,CVA, hypothyroidism, HTN, osteoporosis, carotid artery stenosis Examination: As outlined Presentation: evolving Decision Making: moderate Goals: Goals X1 week 1. Supine-Sit indep 2. Sit-Supine indep 3. Sit-Stand CTG 4. Stand-Sit CTG 5. Bed-Chair min assist 6. Chair-Bed min assist 7. Gait with RW(with or without platform on left) min assist 8. Stairs mod assist 9. Independent with home exercise program 10. Balance sitting good, standing static good, dynamic fair Plan of Care/Treatment Plan: 1-2x/day, 7 days/week x 1 week. Plan of care has been reviewed with the [facility] providing the service under Physical Therapy direction. Initiate Physical Therapy intervention for strengthening, bed mobility, transfers, gait, stairs, balance training, use of assistive device. DISCHARGE RECOMMENDATIONS: [X] SNF for continued rehabilitation TREATMENT CODE/TIME: 46107 [id number] 35' 2:45-3:20
[2023-01-01] MEDS: Enoxaparin 40 MG/0.4 ML SYR SC (14:57)
[2023-01-01 15:35] VITALS: BP 105/66; PULSE 80; RESP 18; TEMP 37; O2SAT 96
--- NOTE | 2023-01-01 15:48 | CHAPLAIN ---
Dorie was resting in bed when I visited. She was waiting to get washed up and looking forward to that. She told me she's been in touch with family and pointed to several names and phone numbers on the white board. Her 's phone number was listed last and she said she didn't want him called. He doesn't need to know everything, she said. Dorie planned on making calls herself after getting washed up. I left when the [facility]TACT [facility] REP arrived to help her.
--- NOTE | 2023-01-01 16:15 | W.PM.PROGNOT ---
Date of Service Date of service: 01/01/23 Time of Service: 09:30 Assessment and Plan Assessment and plan (1) Fracture of left distal radius: Status: Acute Assessment and plan: Continue to wear the brace with any use of the wrist/hand. Brace may be removed when resting but i would recommend wearing during sleep. Finger motion as tolerated. May bear weight on forearm or through hand/brace for mobilization. (2) Closed right hip fracture: Status: Acute Assessment and plan: s/p IMN fixation of the right hip fracture. No acute complications. WBAT with assistive device. (3) Left patella fracture: Status: Acute Assessment and plan: Gnetle PT for quad activation. NO flexion > 45. Brace when mobilizing. Brace for ambulation. Subjective Subjective Interval history since last seen: Dorie reports to be doing well. She feels that the hip is better than it was but having some pain, requiring one pain med last night. No numbness or tingling. She does report some psoterior ankle pain which is improved with a pillow supporting the ankle. Exam Narrative Exam Narrative: Resting comfortably in the bed. NAD. AAOx3. RLE dressing c/d/i. Some swelling of the thigh. Appropriately positioned without shortening or malrotation. +ADF/APF/EHL/FHL SILT DP/SP/Tib Initially painful on dorsiflexion passively but this improves with residual movement but quite tight on both ankles with DF to only -5 degrees. Objective Last Vital Signs Temp 37 C 01/01/23 15:35 Pulse 80 01/01/23 15:35 Resp 18 01/01/23 15:35 BP 105/66 01/01/23 15:35 Pulse Ox 96 01/01/23 15:35 Laboratory Results - last 24 hr 01/01/23 01/01/23 06:18 06:18 WBC 7.66 RBC 2.51 L Hgb 7.7 L Hct 22.5 L MCV 90 MCH 30.7 MCHC 34.2 RDW 13.3 Plt Count 178 MPV 10.6 Immature Gran % 0.5 Neutrophils % 75.5 Lymphocytes % 12.8 Monocytes % 11.1 Eosinophils % 0.0 Basophils % 0.1 Nucleated RBC % 0.0 Absolute Neutrophils 5.78 Absolute Lymphocytes 0.98 L Absolute Monocytes 0.85 H Absolute Eosinophils 0.00 Absolute Basophils 0.01 Sodium 129 L Potassium 4.7 Chloride 97 L Carbon Dioxide 27.2 Anion Gap 4.8 BUN 25 H Creatinine 0.8 Est GFR (CKD-EPI 2020) 71.27 Glucose 114 H Calcium 7.9 L Objective Narrative Objective Narrative: Xray of the L wrist shows dorsal angulation which is unchanged from the previous x-ray. No significant change in any other parameters Xray of the L knee shows a comminuted patella fracture which has not changed from previous x-ray. No displacement of fracture fragments. Severe osteoarthritis. Significant vascular calcifications. Time Spent with Patient Time Spent with Patient: 25-34 minutes Time was spent: preparing to see the patient(eg.review tests), obtaining and/or reviewing separately otained hiistory, ordering medications,tests, procedures and indepentently interpreting results
--- NOTE | 2023-01-01 17:09 | PGE_ITS ---
Date of Service Date of service: 01/01/23 Time of Service: 17:10 Assessment and Plan Assessment and plan (1) Closed right hip fracture: Status: Acute Assessment and plan: Mechanical fall from ground level. In background of osteoporosis. Planned repair today Pain controlled adequately. (2) Hyponatremia: Status: Chronic Assessment and plan: Has had a previous history. Not on an SSRI Etiology no clear. NA 129 today (3) Anemia: Status: Chronic Assessment and plan: Hgb of 9.8 on admission; was 9.8 on 12/02/22. Previously 12.1 on 11/22/22. Hgb today of 7.7 Fe level low normal at 59. Transferrin % saturation low normal at 20. (4) Left patella fracture: Status: Acute Assessment and plan: Occurred in November of this year. Wears brace. (5) Fracture of left distal radius: Status: Acute Assessment and plan: Occurred in November of this year. Wears a brace. OK to have brace off when lying in bed per ortho. (6) CVA (cerebral vascular accident): Assessment and plan: Past history. Has had a carotid endarterectomy. On Plavix / 37.5mg daily. Holding. (7) Essential hypertension: Status: Chronic Assessment and plan: BP normalized - 105/66 Monitor Hgb. 7.7 today, asymptomatic, no active bleeding, ? dilutional and post op hip, will check in am Hold lisinopril. (8) Pressure injury of coccygeal region, stage 3: Status: Acute Assessment and plan: Had this injury on admission - seen by wound care today; see their note (9) DVT prophylaxis: Status: Acute Assessment and plan: Started Enoxaparin 40 mg sc today (OK per ortho) (10) Discharge planning issues: Status: Resolved Assessment and plan: SNF when medically stable discussed with Dr Muse Subjective Subjective Patient reports: no new complaints, feels better, tolerating liquids well, tolerating a regular diet, voiding w/o difficulty (bowling catheter for skin integrity, stage 3 pressure wound coccyx) and shortness of breath Exam Narrative Exam Narrative: Const: Awake, watching TV. Conversant. NAD HEENT: PERRL, sclera clear. MMM CV: RRR +S1/S2, No murmurs RESP: Unlabored, normal wob,lungs clear to auscultation bilaterally. No wheezes rales or rhonchi GI: Soft, Nontender/Nondistended MSK: decreased pain in the right hip, Pain is also present in the right knee at the anterior and lateral aspect. No pain in the left lower extremity. Braces on for the knee and left wrist. Neuro: Sensation grossly intact, no focal neurologic deficits. Psych: (AAO) x3. Appropriate mood and affect Objective Last Vital Signs Temp 37 C 01/01/23 15:35 Pulse 80 01/01/23 15:35 Resp 18 01/01/23 15:35 BP 105/66 01/01/23 15:35 Pulse Ox 96 01/01/23 15:35 Laboratory Results - last 24 hr 01/01/23 01/01/23 06:18 06:18 WBC 7.66 RBC 2.51 L Hgb 7.7 L Hct 22.5 L MCV 90 MCH 30.7 MCHC 34.2 RDW 13.3 Plt Count 178 MPV 10.6 Immature Gran % 0.5 Neutrophils % 75.5 Lymphocytes % 12.8 Monocytes % 11.1 Eosinophils % 0.0 Basophils % 0.1 Nucleated RBC % 0.0 Absolute Neutrophils 5.78 Absolute Lymphocytes 0.98 L Absolute Monocytes 0.85 H Absolute Eosinophils 0.00 Absolute Basophils 0.01 Sodium 129 L Potassium 4.7 Chloride 97 L Carbon Dioxide 27.2 Anion Gap 4.8 BUN 25 H Creatinine 0.8 Est GFR (CKD-EPI 2020) 71.27 Glucose 114 H Calcium 7.9 L Time Spent with Patient Time Spent with Patient: 35-49 minutes Time was spent: preparing to see the patient(eg.review tests), obtaining and/or reviewing separately otained hiistory, referring, communicating with other health director of health care marketing and indepentently interpreting results
[2023-01-01] MEDS: Pantoprazole 40 MG TABCR PO (20:40)
[2023-01-01 23:58] VITALS: BP 119/64; PULSE 88; RESP 16; TEMP 36.7; O2SAT 95
[2023-01-02] VITALS (8 sets, daily range): BP systolic 98–132; BP diastolic 60–76; PULSE 64–91; RESP 16–20; TEMP 36.4–36.9; O2SAT 94–100
[2023-01-02] MEDS: MORPHine 4 MG/ML SYR IVP (01:36)
[2023-01-02] MEDS: traMADol 50 MG TAB PO ×2 (04:35→21:56)
[2023-01-02] MEDS: Levothyroxine 25 MCG TAB PO (04:35)
[2023-01-02] MEDS: Pantoprazole 40 MG TABCR PO ×2 (07:20→21:57)
[2023-01-02 09:15] LABS: Anion Gap 5.4 mmol/L (3-11); BUN 27 mg/dL (7-18); CO2 27.6 mmol/L (21.0-32.0); CREATININE 0.6 mg/dL (0.55-1.02); Calcium 8.5 mg/dL (8.5-10.1); Chloride 97 mmol/L (98-107); Estimated GFR 86.82 (mL/min/1.73m2); Glucose 93 mg/dL (74-106); Magnesium 1.8 mg/dL (1.8-2.4); Potassium 4.8 mmol/L (3.5-5.1); Sodium 130 mmol/L (136-145)
[2023-01-02] MEDS: Calcium Carbonate 1.5 GM TAB PO (09:16)
[2023-01-02] MEDS: Cholecalciferol (Vitamin D3) 1,000 UNIT TAB 1000 UNITS PO (09:17)
[2023-01-02 10:26] LABS: Abs Immature Grans 0.02 10^3/uL (0.0-0.06); Absolute Basophil Count 0.01 10^3/uL (0.0-0.2); Absolute Eosinophil Count 0.02 10^3/uL (0.0-0.7); Absolute Lymphocyte Count 1.46 10^3/uL (1.2-3.4); Absolute Monocyte Count 0.71 10^3/uL (0.1-0.8); Absolute Neutrophil Count 3.89 10^3/uL (1.2-6.7); Basophils % 0.2; Eosinophils % 0.3; HGB 7.4 g/dL (11.2-15.7); Immature Grans % 0.3; Lymphocytes % 23.9; MCH 30.5 pg (27.0-33.0); MCHC 33.6 % (32.0-36.0); MCV 91 fL (80-95); MPV 10.9 fL (8.0-11.0); Monocytes % 11.6; Neutrophils % 63.7; Platelet Count 179 10^3/uL (130-400); RBC 2.43 10^6/uL (3.93-5.22); RDW 13.2 % (11.7-14.6); WBC 6.11 10^3/uL (4.4-10.8)
[2023-01-02 10:36] LABS: Diff Comment Diff Reviewed; Hypochromasia 2+
[2023-01-02 10:37] LABS: Poikilocytes 1+
--- NOTE | 2023-01-02 10:40 | PTTR_ITS ---
Date of service: 01/02/23 Time of Service: 10:42 PT Notes Visit Reasons: Hip Fracture Inpatient Physical Therapy Treatment Note [facility] Date: 01/02/23 PRECAUTIONS: Fall, standard, activity as tolerated. WBAT RLE. SUBJECTIVE: Patient reports feeling pretty good OBJECTIVE: Supine in bed, agreeable to therapy x2 ? PAIN: Yes, left wrist, right hip VITALS: monitored by nursing staff? Therapeutic Activities ([id number]): Direct one-on-one instruction in dynamic activities to improve functional performance. ? BED MOBILITY/TRANSFERS? Rolling L/R: Unable d/t pain Supine-sit: mod assist with elevated HOB? Sit-supine: Mod assist to get into bed, dependent for positioning ? Sit-stand: mod assist with max verbal cues ? Stand-sit: CGA with max verbal cues ? Bed-Chair: unable ? Chair-bed: unable Provided skilled cues and instruction on performance and technique throughout. Gait Training ([id number]): Direct one-on-one instruction and skilled instruction in: [x] employing an assistive device [x] modified weight-bearing status [x] movement sequencing [] turning and movement with proper form [x] Provided verbal cues for equipment management and technique [x] Provided instruction in gait pattern [] Patient education regarding pacing and breathing techniques to maximize activity tolerance? GAIT? Assistive Device: FWW? Weight bearing: WBAT Assist: Mod assist, max verbal cues, encouragement and reassurance ? Distance:? Pre-gait activities only ? Deviation: Instructed on weight shift, appropriate positioning on walker, WBAT status of wrist ? Therapeutic Exercises ([id number]): Direct one-on-one instruction in therapeutic exercises to develop strength, endurance, range of motion and flexibility. ? Exercises: * Sit to stand x5 * Quad sets 2x10 with 5 second holds * Glute sets 2x10 with 5 second holds * ankle pumps 2x10 - education provided on improving circulation and reducing swelling. ? Provided skilled instruction in proper exercise performance Provided skilled manual cues to facilitate proper muscle recruitment and/or form. ASSESSMENT:? Patient tolerates therapy well, returns to resting in a comfortable position in bed at end of therapy PLAN: continue global strengthening per plan of care until patient is medically ready to discharge. TREATMENT CODE/TIME: 38 minutes beginning at 10:42 and 37 minutes beginning at 15:11
[2023-01-02] MEDS: Fosfomycin Tromethamine 3 GM PACKET PO (10:47)
--- NOTE | 2023-01-02 13:34 | PDOC.CMPRO ---
Date of service: 01/02/23 Time of Service: 13:34 Care Management Progress Note Progress Note Text Progress Note Text: S/O: Dorie was sitting up in bed eating lunch when CM met with her. She was pleasant and engaged in conversation. She reported that she tried working with PT and had a hard time standing. Per pt, PT told her she may need a hospital bed when she discharges from Rehab to home, however she expresses that she is not fond of rearranging her room and she can't imaging that she would need one after she regains her mobility. Dorie remains agreeable to go to short term rehab. PT eval is completed and referral is sent to [facility] today. CM will continue to follow. A: Dorie is an 87 year old female admitted to [facility] on 12/30/22 for a hip fracture. P: Dorie is s/p fixation of her hip fracture. Pt recommends SNF for STR. prior to discharging home with [facility] services. SNF referral is sent to [facility], at pts request. She will follow up with Ortho, her PCP and her discharge plan of care. CM will continue to follow.
[2023-01-02] MEDS: Enoxaparin 40 MG/0.4 ML SYR SC (14:23)
[2023-01-02] MEDS: Polyethylene Glycol 3350 17 GM PACKET PO (15:05)
--- NOTE | 2023-01-02 18:25 | PGE_ITS ---
Date of Service Date of service: 01/02/23 Time of Service: 18:25 Assessment and Plan Assessment and plan (1) Closed right hip fracture: Status: Acute Assessment and plan: Mechanical fall from ground level. In background of osteoporosis. Post op day Pain controlled adequately. (2) Hyponatremia: Status: Chronic Assessment and plan: Has had a previous history. Not on an SSRI Etiology no clear. NA 130 today (3) Anemia: Status: Chronic Assessment and plan: Hgb of 9.8 on admission; was 9.8 on 12/02/22. Previously 12.1 on 11/22/22. Hgb 01/01 7.7, today 7.4, transfused one unit of blood - repeat Hgb pending Fe level low normal at 59. Transferrin % saturation low normal at 20. (4) Left patella fracture: Status: Acute Assessment and plan: Occurred in November of this year. Wears brace. (5) Fracture of left distal radius: Status: Acute Assessment and plan: Occurred in November of this year. Wears a brace. OK to have brace off when lying in bed per ortho. (6) CVA (cerebral vascular accident): Assessment and plan: Past history. Has had a carotid endarterectomy. On Plavix / 37.5mg daily. Holding. (7) Essential hypertension: Status: Chronic Assessment and plan: BP normalized - 105/66 Monitor Hgb. 7.4 today, asymptomatic, no active bleeding, ? dilutional and post op hip, one unit of PRBCs, repeat HGB pending Hold lisinopril. (8) Pressure injury of coccygeal region, stage 3: Status: Acute Assessment and plan: Had this injury on admission - seen by wound care; see their note, nursing performing dsgs (9) DVT prophylaxis: Status: Acute Assessment and plan: Continue Enoxaparin 40 mg sc today (discussed Hgb and enoxaparin, risk of PE greater than risk of bleeding, continue) (10) Discharge planning issues: Status: Resolved Assessment and plan: SNF when medically stable discussed with Dr Briceño Subjective Subjective Patient reports: no new complaints, tolerating a regular diet, voiding w/o difficulty, bowel movement and afebrile; denies diarrhea, blood in stool, nausea, vomiting or shortness of breath Exam Narrative Exam Narrative: Const: Awake, skin w/d/pale conversant. NAD, no increased WOB HEENT: PERRL, sclera clear. MMM CV: RRR +S1/S2, No murmurs RESP: Unlabored, normal wob,lungs clear to auscultation bilaterally. No wheezes rales or rhonchi GI: Soft, Nontender/Nondistended MSK: decreased pain in the right hip, No pain in the left lower extremity. - followed by ortho Neuro: Sensation grossly intact, no focal neurologic deficits. Psych: (AAO) x3. Appropriate mood and affect Objective Last Vital Signs Temp 36.9 C 01/02/23 17:36 Pulse 91 H 01/02/23 17:36 Resp 18 01/02/23 17:36 BP 128/76 01/02/23 17:36 Pulse Ox 100 01/02/23 17:36 Laboratory Results - last 24 hr 01/02/23 01/02/23 01/02/23 06:12 06:12 14:30 WBC 6.11 RBC 2.43 L Hgb 7.4 L Hct 22.0 L MCV 91 MCH 30.5 MCHC 33.6 RDW 13.2 Plt Count 179 MPV 10.9 Immature Gran % 0.3 Neutrophils % 63.7 Lymphocytes % 23.9 Monocytes % 11.6 Eosinophils % 0.3 Basophils % 0.2 Nucleated RBC % 0.0 Absolute Neutrophils 3.89 Absolute Lymphocytes 1.46 Absolute Monocytes 0.71 Absolute Eosinophils 0.02 Absolute Basophils 0.01 RBC Morphology See Below Hypochromasia 2+ Poikilocytosis 1+ Sodium 130 L Potassium 4.8 Chloride 97 L Carbon Dioxide 27.6 Anion Gap 5.4 BUN 27 H Creatinine 0.6 Est GFR (CKD-EPI 2020) 86.82 Glucose 93 Calcium 8.5 Magnesium 1.8 Patient ABO/Rh A Negative Antibody Screen NEGATIVE Crossmatch See Detail Time Spent with Patient Time Spent with Patient: 35-49 minutes Time was spent: preparing to see the patient(eg.review tests), ordering medications,tests, procedures, referring, communicating with other health care professional, indepentently interpreting results, counseling the patient and care coordination
[2023-01-02 20:58] LABS: HCT 23.4 % (36.0-46.0)
[2023-01-03] MEDS: Acetaminophen 325 MG TAB PO (02:07)
[2023-01-03] MEDS: Levothyroxine 25 MCG TAB PO (05:46)
[2023-01-03 06:40] LABS: Abs Immature Grans 0.02 10^3/uL (0.0-0.06); Absolute Basophil Count 0.02 10^3/uL (0.0-0.2); Absolute Eosinophil Count 0.04 10^3/uL (0.0-0.7); Absolute Lymphocyte Count 1.03 10^3/uL (1.2-3.4); Absolute Monocyte Count 0.63 10^3/uL (0.1-0.8); Absolute Neutrophil Count 3.43 10^3/uL (1.2-6.7); Basophils % 0.4; Eosinophils % 0.8; HCT 22.5 % (36.0-46.0); HGB 7.7 g/dL (11.2-15.7); Immature Grans % 0.4; Lymphocytes % 19.9; MCH 30.3 pg (27.0-33.0); MCHC 34.2 % (32.0-36.0); MCV 89 fL (80-95); MPV 10.1 fL (8.0-11.0); Monocytes % 12.2; Neutrophils % 66.3; Platelet Count 175 10^3/uL (130-400); RBC 2.54 10^6/uL (3.93-5.22); RDW 13.2 % (11.7-14.6); RDW-SD 42.7 fL; WBC 5.17 10^3/uL (4.4-10.8)
[2023-01-03 06:52] LABS: Anion Gap 2.8 mmol/L (3-11); BUN 18 mg/dL (7-18); CO2 28.2 mmol/L (21.0-32.0); CREATININE 0.6 mg/dL (0.55-1.02); Calcium 7.8 mg/dL (8.5-10.1); Chloride 96 mmol/L (98-107); Estimated GFR 86.82 (mL/min/1.73m2); Glucose 94 mg/dL (74-106); Magnesium 1.7 mg/dL (1.8-2.4); Potassium 4.7 mmol/L (3.5-5.1); Sodium 127 mmol/L (136-145)
[2023-01-03 07:23] VITALS: BP 131/65; PULSE 78; RESP 18; TEMP 36.4; O2SAT 97
[2023-01-03] MEDS: Cholecalciferol (Vitamin D3) 1,000 UNIT TAB 1000 UNITS PO (07:37)
[2023-01-03] MEDS: Calcium Carbonate 1.5 GM TAB PO (07:37)
[2023-01-03] MEDS: Pantoprazole 40 MG TABCR PO (07:37)
[2023-01-03] MEDS: MAGNESIUM SULFATE 2 GM/50 ML BAG IVPB (08:44)
[2023-01-03 10:10] LABS: HCT 23.9 % (36.0-46.0); HGB 7.9 g/dL (11.2-15.7)
--- NOTE | 2023-01-03 10:57 | W.PM.DS.N ---
Date of service: 01/03/23 Time of Service: 10:57 DS: Diagnosis Discharge Diagnosis (1) Closed right hip fracture: Status: Acute (2) Hyponatremia: (3) Anemia: Status: Chronic (4) Left patella fracture: Status: Acute (5) Fracture of left distal radius: Status: Acute (6) CVA (cerebral vascular accident): (7) Essential hypertension: (8) Pressure injury of coccygeal region, stage 3: Status: Acute (9) DVT prophylaxis: Status: Deleted (10) Discharge planning issues: Status: Resolved Discharge Plan Disposition Patient Disposition: Longterm Facility(SNF) Condition: Improving Discharge Details Reason For Visit: Hip Fracture Admit Date/Time: 12/30/22 13:35 Admit Provider: Rolo Muse Attending Provider: Rolo Muse Primary Care Provider: Kaci Leigh Hospital Course Hospital Course: This is an 87 yo female patient with a past medical history of CVA, hypothyroidism, HTN, osteoporosis, carotid artery stenosis, who had a recent left distal radius fx and left patella fracture from a fall. On 12/30 patient presesnted to the [facility] ED for evaluation of a fall. She was at home trying to open a window, turned around and fell backwards, landing on her buttocks.? She noted immediate pain and hearing a pop in the right hip.? She could not stand but did crawl to the kitchen.? She had no CP/palpitations/lightheadedness prior to the fall. No LOC. She was found to have a comminuted fracture of the right proximal femur.?She went to the OR on 12/31 and her hip was repaired. Ortho has been following her in patient for her injuries. She was found to have a stage 3 pressure injury to her coccyx on admission. Wound care was consulted and recommended optiview 7x7 applied to the wound for protection and changed every three days and prn. Orthopedic recommendations are in the instruction section of this document. Sonia is having little pain, and it is being managed well with oral medications. She did have a hemoglobin of 7.4 and received a unti of blood on 01/01. Hemoglobin is 7.9 today - 8 is her mean for this hospitalization. Recommend a repeat hemoglobin in a couple of days. She also has hyponatremia, baseline is around 130, today is 127. Recommend limiting free water to 1200 ml and to repeat BMP on Friday. She is feeling stronger and today she looks enthusiastic and ready to start rehab. She has not had any bloody stools. Orthopedic instructions in instruction section of this document. Indwelling urinary catheter for skin protection of stage 3 coccyx pressure injury which can be removed at the discretion of the staff. She is discharged to [facility] stable. She should follow up with orthopedics in four weeks. Home Meds and New Rx's Prescriptions: New aspirin 81 mg capsule 81 mg PO BID Qty: 30 0RF Continued multivitamin tablet 1 tab PO DAILY omega 7-sgw-zxa-fish oil [Fish Oil] 1,000 mg (120 mg-180 mg) capsule 1 cap PO DAILY (DME) Pill Splitter See Rx Instructions .Route .MEDSUPPLY Qty: 1 2RF Rx Instructions: Please dispense to use to cut pills in half. levothyroxine 25 mcg tablet 25 mcg PO DAILY Qty: 90 3RF Rx Instructions: Take on an empty stomach 30-min prior to other meds/food lisinopril 20 mg tablet 20 mg PO DAILY Qty: 90 3RF Rx Instructions: Dose increase 11/25/2022 for goal BP <140/90 lecithin 1,200 MG capsule 1,360 mg PO DAILY fphhrcdx-gkto-dilzxs-hyalur ac 1 EACH capsule 1,500 ea PO DAILY CALCIUM 600+MINERALS TABLET 1 EACH tablet 1 ea PO DAILY cholecalciferol (vitamin D3) 1,000 UNIT tablet 1,000 unit PO DAILY clopidogrel [Plavix] 75 mg tablet 37.5 mg PO DAILY MDD 75mg/24h Qty: 90 3RF Hold Instructions: for 7 days then resume if bleeding stopped tramadol 50 mg Tablet 50 mg PO Q6H PRN PRNQty: 20 0RF Discharge Instructions Instructions: Aspirin (By mouth), Hip Fracture (GEN) Additional Instructions: coccyx stage 3 pressure injury: Cleanse with Normal saline, then pat dry. Apply skin prep to the alissa wound skin. Apply an Optiview 7X7 to the wound for protection. Turn patient every 2 hours to offload pressure, and prevent further skin breakdown. Change every 3 days or PRN, Check placement every shift. Orthopedic instructions Continue to wear the brace on the left wrist with any use of the wrist/hand.? Brace may be removed when resting but i would recommend wearing during sleep.? Finger motion as tolerated.? May bear weight on forearm or through hand/brace for mobilization. (2) Closed right hip fracture: ?Status:?Acute ? ? ? Assessment and plan: s/p IMN fixation of the right hip fracture.? No acute complications.? WBAT with assistive device.? (3) Left patella fracture: ?Status:?Acute ? ? ? Assessment and plan: Gentle PT for quad activation.? No flexion > 90.? Brace when mobilizing.? Brace for ambulation.? Start aspirin 81 mg twice a day for 30 days Stand Alone Forms: Nursing Discharge Form Referrals: Kaci Leigh NP [Primary Care Provider] - (follow up after discharge from rehab) Robert Saab MD [ [facility] STAFF PHYSICIAN] - 01/31/23 10:30 am () Activity:: Activity as Tolerated Equipment/Supplies:: No Equipment Needed Diet:: As Tolerated Discharge Orders Discharge Orders: Discharge Order (Routine); Ordered 01/03/23 Ordered By: Lainey Hassan Other Ambulatory Orders: Basic Metabolic Panel (Routine) Timeframe: 3 Days Location: None Selected Ordered By: Lainey Hassan Complete Blood Count w/Diff (Routine) Timeframe: 3 Days Location: None Selected Ordered By: Lainey Hassan Discharge Data Discharge Date/Time-TO BE ENTERED AT DEPARTURE: 01/03/23 13:26 DS: Summary Time Spent with Patient providing and/or coordinating discharge services: Greater than 30 minutes Status at Discharge Functional status at discharge: uses cane/walker Overall status at discharge: patient is progressing back to baseline Mental Status: mental status grossly normal Speech and Movement: speech and movement normal Mood: congruent mood Affect: normal affect Exam Narrative Exam Narrative: Const: Awake, skin w/d/pale conversant. NAD, no increased WOB HEENT: PERRL, sclera clear. MMM CV: RRR +S1/S2, No murmurs RESP: Unlabored, normal wob,lungs clear to auscultation bilaterally. No wheezes rales or rhonchi GI: Soft, Nontender/Nondistended MSK: decreased pain in the right hip, No pain in the left lower extremity. - followed by ortho Neuro: Sensation grossly intact, no focal neurologic deficits. Psych: (AAO) x3. Appropriate mood and affect Psych Mental Status: mental status grossly normal Speech and Movement: speech and movement normal Mood: congruent mood Affect: normal affect DS: Data Vitals/I&O Vitals and I&O: Vital Signs Temperature 36.4 C L 01/03/23 07:23 Temperature Source Tympanic 01/03/23 07:23 Pulse 78 01/03/23 07:23 Pulse Rhythm Regular 01/03/23 07:35 Pulse 79 12/30/22 13:45 Respiratory Rate 18 01/03/23 07:23 Respiratory Effort Normal, Non-Labored 01/03/23 07:35 Respiratory Depth Normal 01/03/23 07:35 Respiratory Pattern Normal 01/03/23 07:35 Blood Pressure 131/65 01/03/23 07:23 Blood Pressure Mean 71 12/30/22 13:45 Pulse Oximetry 97 01/03/23 07:23 Respiratory End-tidal CO2 30 12/31/22 15:53 Oxygen Delivery Method Room Air 01/03/23 07:23 Oxygen Flow Rate 0 01/03/23 07:23 Pain Level 0 01/03/23 07:23 Comment RN informed of VS 12/30/22 15:44 Intake & Output 01/02/23 01/02/23 01/03/23 11:59 23:59 11:59 Intake Total 170 / 760 590 / 760 120 / 120 Output Total 400 / 650 250 / 650 425 / 425 Balance -230 / 110 340 / 110 -305 / -305 Intake: IV 50 / 50 Oral 120 / 360 240 / 360 120 / 120 Blood Product 300 / 300 Rbc Leuko Reduced Unit 300 / 300 [id number] Other 50 / 50 Rbc Leuko Reduced Unit 50 / 50 [id number] Output: Urine 400 / 650 250 / 650 425 / 425 Other: Urine Color Light Anamaria Yellow Light Anamaria Urine Appearance Clear Clear Clear Comment emptied on prior shift, documented in voiding assessment Stool Size Moderate Stool Characteristics Soft Data Completed and Pending Labs on day of discharge: Labs from last 24 hours 01/03/23 01/03/23 01/03/23 10:00 05:55 05:55 WBC 5.17 RBC 2.54 L Hgb 7.9 L 7.7 L Hct 23.9 L 22.5 L MCV 89 MCH 30.3 MCHC 34.2 RDW 13.2 Plt Count 175 MPV 10.1 Immature Gran % 0.4 Neutrophils % 66.3 Lymphocytes % 19.9 Monocytes % 12.2 Eosinophils % 0.8 Basophils % 0.4 Nucleated RBC % 0.0 Absolute Neutrophils 3.43 Absolute Lymphocytes 1.03 L Absolute Monocytes 0.63 Absolute Eosinophils 0.04 Absolute Basophils 0.02 Sodium 127 L Potassium 4.7 Chloride 96 L Carbon Dioxide 28.2 Anion Gap 2.8 L BUN 18 Creatinine 0.6 Est GFR (CKD-EPI 2020) 86.82 Glucose 94 Calcium 7.8 L Magnesium 1.7 L Patient ABO/Rh Antibody Screen Crossmatch 01/02/23 01/02/23 20:50 14:30 WBC RBC Hgb 8.0 L Hct 23.4 L MCV MCH MCHC RDW Plt Count MPV Immature Gran % Neutrophils % Lymphocytes % Monocytes % Eosinophils % Basophils % Nucleated RBC % Absolute Neutrophils Absolute Lymphocytes Absolute Monocytes Absolute Eosinophils Absolute Basophils Sodium Potassium Chloride Carbon Dioxide Anion Gap BUN Creatinine Est GFR (CKD-EPI 2020) Glucose Calcium Magnesium Patient ABO/Rh A Negative Antibody Screen NEGATIVE Crossmatch See Detail PFSH All Active Problems (Updated 01/04/23 @ 00:01 by BENI TORO) Pressure injury of coccygeal region, stage 3 (Acute) Anemia (Chronic) Closed right hip fracture (Acute) s/p IMN Fixation 01/01/23 Left patella fracture (Acute 11/30/22) Fracture of left distal radius (Acute 11/30/22) History of stroke (Chronic ~2014) Occurred while taking ASA, so switch to Plavix Raynaud phenomenon (Chronic) Hypothyroidism (Chronic) Osteoporosis, unspecified (Chronic 11/19/12) Never treated with bisphosphonates per pt Carotid artery stenosis (Acute 07/11/11) [place] [facility] [place] Medical History Abnormal liver function (12/04/12) Anxiety Closed fracture of left proximal humerus (11/21/18) CVA (cerebral vascular accident) (06/22/14) Diverticula of colon (~10/2022) Diverticulosis of small intestine (07/11/11) GI bleeding (~10/2022) Mitral valve prolapse (07/11/11) Other and unspecified hyperlipidemia (11/19/12) Statin-controlled Surgical History Carotid endarterectomy Extraction of cataract (12/21/15) Dr. Marla Nam Right eye Dr. Marla Nam left eye Extraction of cataract (01/04/16) Dr. Marla Nam Right eye Dr. Marla Nam left eye Family History Father , MS at age 65. Heart disease Mother , cva at age 93. Stroke Social History Smoking/Tobacco Use Status: Never Smoking risk assessment performed?: Yes Alcohol Intake: former Drug use: Never Substance use type: does not use Adopted: No Caregiver/Support person: No Foster care: No Housing: apartment Number of Children: 2 number of grandchildren: 3 Current gender identity: female What is your relationship status?: Panel score (0-1 are the most socially isolated patients): 0 What type of physical activity do you participate in: walking and other Details: weights, squats, leg lifts Duration: 15-30 minutes/day Frequency: 5-6 times per week Seatbelt use: always Drive intox or ride w/intox compressed air pile driver operator: No Working smoke detector in home: Yes Fire extinguisher in home: Yes Carbon monox detector in home: Yes Do you feel safe at home: Yes Do you feel safe in your relationship?: Yes Victim of physical abuse: No Victim of emotional abuse: No Victim of sexual abuse: No Would you like helpful sources: No Additional Social history: pt lives in a house, daughter lives in the other side of home. Time Spent with Patient Time Spent with Patient: 70-84 minutes4 Time was spent: preparing to see the patient(eg.review tests), ordering medications,tests, procedures, referring, communicating with other health nurse behavioral health care, indepentently interpreting results, counseling the patient and care coordination
--- NOTE | 2023-01-03 14:57 | PT.INDS ---
PT Notes Visit Reasons: Hip Fracture ? Inpatient Physical Therapy Discharge Summary Date: 01/05/23 Dates of Service: 01/01/2023 - 01/02/23 Referring Doctor: Dr. Robert Saab PT Orders: PT CONSULT: Evaluation and treat, mobility Precautions: WBAT s/p IMN Right Proximal femur (PMH Left patella fx, hinged brace, left wrist fx cock-up splint) This document serves as a summary of care. No PT services were provided on this date. Patient Profile/Admitting Diagnosis: Dorie is an 87 yo female with a PMH of CVA, hypothyroidism, HTN, osteoporosis, carotid artery stenosis, recent left distal radius fx and left patella fracture 11/30.? She presented to the ED 12/30 after falling backward, dx of fx right hip, IMN fixation 12/31/2022 . She had fx left wrist and left patella from a fall 11/30/2022 and has been wearing a brace on each, ambulating with cane at home. She participated in 2 sessions of PT intervention during her acute care stay, and was able to transfer to SNF for continued rehabilitation due to mobility impairments rendering her unable to return to community at this time. PMHX: All Active Problems? Anemia (Chronic) Closed right hip fracture (Acute) Left patella fracture (Acute 11/30/22) Fracture of left distal radius (Acute 11/30/22) Hyponatremia (Chronic) History of stroke (Chronic ~2014) Occurred while taking ASA, so switch to PlavixRaynaud phenomenon (Chronic) Hypothyroidism (Chronic) Essential hypertension (Chronic 07/13/14) Osteoporosis, unspecified (Chronic 11/19/12) Never treated with bisphosphonates per ptCarotid artery stenosis (Acute 07/11/11) R-sided [place] [facility] [place] Medical History? Abnormal liver function (12/04/12) Anxiety Closed fracture of left proximal humerus (08/03/19) CVA (cerebral vascular accident) (06/22/14) Diverticula of colon (~10/2022) Diverticulosis of small intestine (07/11/11) GI bleeding (~10/2022) Mitral valve prolapse (07/11/11) Other and unspecified hyperlipidemia (11/19/12) Statin-controlled Social History/Home Situation: Pt. lives alone, single floor living with a few steps getting into apartment. Daughter lives next door. Injuries of left wrist fracture and left patella fracture ambulatory status in home with cane using cane with right UE. Current Functional Limitations: WBAT on right, per patient unable to bear weight thru the left UE due to the wrist although braced may need platform when using RW. Equipment Owned/DME: cane Subjective: none obtained Objective: ROM: Right Upper Extremity: WFL with shoulder elevation approximately 100 degrees full elbow flexion extension and functional wrist flexion extension Left Upper Extremity: Shoulder WFL with elevation approximately 100 degrees, elbow flexion full extension full, left wrist immobilized in cock-up splint Right Lower Extremity: limited S/p IM left hip hip flexion in supine 60 degrees, PROM hip flex 80 abduction 10 ,ER 0, IR 20 knee 0?90, WFL ankle dorsiflexion plantarflexion Left Lower Extremity: In brace knee 0?60 due to limitation of brace, out of brace 0?110, AROM hip flexion 100, abduction 25, ankle WFL Strength: Right Upper Extremity: WFL Left Upper Extremity: Left wrist unable to evaluate in cock-up splint, elbow flexion extension 4/5, shoulder WFL Right Lower Extremity: Hip AB duction 1/5, ADD duction 2/5, hip flexion 2/5, knee extension 2/5, knee flexion 3/5, DF 4/5, PF NT Left Lower Extremity: Hip AB duction 3/5, abduction 3/5, flexion 3/5, knee extension 3/5, knee flexion 3/5, DF 4/5 PF not tested Sensation: Intact to light touch BED MOBILITY/TRANSFERS?Rolling L/R: Unable d/t pain ?Supine-sit: mod assist with elevated HOB?Sit-supine: Mod assist to get into bed, dependent for positioning ?Sit-stand: mod assist with max verbal cues ?Stand-sit: CGA with max verbal cues ?Bed-Chair: unable ?Chair-bed: unable GAIT?Assistive Device: FWW?Weight bearing: WBAT ?Assist: Mod assist, max verbal cues, encouragement and reassurance ?Distance:? Pre-gait activities only ?Deviation: Instructed on weight shift, appropriate positioning on walker, WBAT status of wrist ? Balance: Static Sitting: Fair Dynamic Sitting: Fair Static Standing: poor Dynamic Standing:unable Assessment: Patient is a 87year old female referred to physical therapy services with the diagnosis of status post IMN right proximal femur 12/31/2022, with PMH of left wrist fracture and left patella fracture wearing braces on both from 11/30/2022. She participated in 2 sessions of PT intervention during her acute care stay, and was able to transfer to SNF for continued rehabilitation due to mobility impairments rendering her unable to return to community at this time. Goals: Goals X1 week 1. Supine-Sit indep (NOT MET) 2. Sit-Supine indep(NOT MET) 3. Sit-Stand CTG(NOT MET) 4. Stand-Sit CTG(NOT MET) 5. Bed-Chair min assist(NOT MET) 6. Chair-Bed min assist(NOT MET) 7. Gait with RW(with or without platform on left) min assist(NOT MET) 8. Stairs mod assist(NOT MET) 9. Independent with home exercise program (NOT MET) 10. Balance sitting good, standing static good, dynamic fair(NOT MET) Plan of Care/Treatment Plan: D/C FROM PT SERVICES IN ACUTE CARE SETTING DISCHARGE RECOMMENDATIONS: [X] SNF for continued rehabilitation TREATMENT CODE/TIME: none Mary Rebolledo, PT, DPT [facility]
--- NOTE | 2023-01-03 17:11 | PDOC.CMDIS ---
Date of service: 01/03/23 Time of Service: 17:11 LACE Index Scoring Tool Questions: Length of Stay (in days): 4 - 6 Was the patient admitted via the E.D.?: Yes E.D. Visits: 2 Answers: Total Score: 9 Risk of Readmission: Low Risk Care Management Discharge Plan Reason for Hospitalization: Hip Fracture Discharge Plan: Sonia will transfer to [facility] today for short term rehab prior to returning home. CM called Katie, her daughter, and discussed the discharge, at Dot's request. Katie and Dorie are in agreement that this is the best plan for Dot, in order for her to regain her strength and independence prior to returning home. She was transported via facility w/c van, coordinated by RAKAN. She will follow up with Ortho, her PCP, and her discharge plan of care. Patient/Family Education Needs: Review discharge instructions with Sonia, her daughter, and the accepting facility. Discussion of self care needs including ask me three. Services Needed at Discharge: [facility] Facility ([facility]) and Transportation (facility w/c van)
== END 2023-01-03 13:26 | disposition skilled nursing facility (03) | DRG 480 ==
LOC: ER 13:30 → MS 15:41
PROVIDERS: Nurse Practitioner Family; Student in an Organized Health Care Education/Training Program; Admitting Provider Family Medicine; Emergency Provider Student in an Organized Health Care Education/Training Program; PCP Nurse Practitioner Adult Health; Visit Provider Family Medicine
PROC: 0QS606Z Reposition Right Upper Femur with Intramedullary Internal Fixation Device, Open Approach (ICD-10-PCS; CPT 27245; principal; 2022-12-31 16:15)
DX: S72.141A Displaced intertrochanteric fracture of right femur, initial encounter for closed fracture (principal); L89.153 Pressure ulcer of sacral region, stage 3; E87.1 Hypo-osmolality and hyponatremia; D64.9 Anemia, unspecified; S82.002D Unspecified fracture of left patella, subsequent encounter for closed fracture with routine healing; S52.502D Unspecified fracture of the lower end of left radius, subsequent encounter for closed fracture with routine healing; Z79.01 Long term (current) use of anticoagulants; E03.9 Hypothyroidism, unspecified; I10 Essential (primary) hypertension; M81.0 Age-related osteoporosis without current pathological fracture; I73.00 Raynaud's syndrome without gangrene; F41.9 Anxiety disorder, unspecified; E78.5 Hyperlipidemia, unspecified; I65.29 Occlusion and stenosis of unspecified carotid artery; W01.0XXA Fall on same level from slipping, tripping and stumbling without subsequent striking against object, initial encounter
CPT/HCPCS: 27245; 36415; 51702; 73552; 74177; 80048; 80053; 86850; 86900; 86901; 86920; 87077; 93306; 96361; 96374; 96375; 97110; 97116; 97162; 97530; 99223; 99285; J1650; 70450; 71260; 72125; 72170; 73110; 73501; 73560; 81003; 81015; 83540; 83550; 83735; 85014; 85018; 85025; 85610; 85730; 87086; 87186; 99232; J0690; J2270; J2371; J2405; J2704; J3475; J3490; P9016

== ENCOUNTER 2023-03-03 12:10 | Outpatient (CLI) | payer MEDICARE, MEDICAID, SELFPAY ==
--- NOTE | 2023-03-03 10:15 | DI.RAD_ITS ---
Exam(s) XR HIP RT AP LAT ONLY EXAM: XR HIP RT AP LAT ONLY CLINICAL HISTORY: S/P IM NAIL. TECHNIQUE: 2D digital imaging was performed. Two views COMPARISON: CR XR HIP RT AP LAT ONLY from 01/31/2023 FINDINGS: BONES: There has been no change in fracture or hardware alignment. No bony destructive lesion is see n. JOINTS: No dislocation present. SOFT TISSUE: Vascular calcifications. IMPRESSION: No acute abnormality. DATA REPOSITORY: RADIATION DOSE DELIVERED:
== END 2023-03-03 12:11 | disposition home or self-care (01) ==
LOC: DIORS 12:12
PROVIDERS: PCP Nurse Practitioner Adult Health; Referring Provider Nurse Practitioner Adult Health; Visit Provider Student in an Organized Health Care Education/Training Program
DX: S72.001A Fracture of unspecified part of neck of right femur, initial encounter for closed fracture (principal); S72.001D Fracture of unspecified part of neck of right femur, subsequent encounter for closed fracture with routine healing; X58.XXXD Exposure to other specified factors, subsequent encounter
CPT/HCPCS: 73502

== ENCOUNTER 2023-04-16 15:14 | Outpatient (REF) | payer MEDICARE, MEDICAID, SELFPAY ==
[2023-04-16 12:57] LABS: HCT 35.7 % (36.0-46.0); HGB 11.6 g/dL (11.2-15.7); MCHC 32.5 % (32.0-36.0); MCV 89 fL (80-95); MPV 11.3 fL (8.0-11.0); Platelet Count 231 10^3/uL (130-400); RDW-SD 45.8 fL; WBC 4.82 10^3/uL (4.4-10.8)
[2023-04-16 13:05] LABS: Anion Gap 3.3 mmol/L (3-11); BUN 17 mg/dL (7-18); CO2 30.7 mmol/L (21.0-32.0); CREATININE 0.6 mg/dL (0.55-1.02); Calcium 9.2 mg/dL (8.5-10.1); Chloride 99 mmol/L (98-107); Estimated GFR 86.82 (mL/min/1.73m2); Ferritin 122 ng/mL (8-252); Glucose 81 mg/dL (74-106); Magnesium 1.8 mg/dL (1.8-2.4); Potassium 4.5 mmol/L (3.5-5.1); Sodium 133 mmol/L (136-145)
== END 2023-04-16 15:15 | disposition home or self-care (01) ==
LOC: LBN 15:14
PROVIDERS: PCP Nurse Practitioner Adult Health; Visit Provider Nurse Practitioner Adult Health
DX: D64.9 Anemia, unspecified (principal); E03.9 Hypothyroidism, unspecified; E83.42 Hypomagnesemia; E83.51 Hypocalcemia; E87.1 Hypo-osmolality and hyponatremia; I10 Essential (primary) hypertension
CPT/HCPCS: 80048; 85027; 82728; 83735; 84443

== ENCOUNTER 2024-04-08 11:10 | Observation (INO) | payer MEDICARE, MEDICAID, SELFPAY ==
[2024-04-08] VITALS (50 sets, daily range): BP systolic 101–217; BP diastolic 51–112; PULSE 65–100; RESP 11–32; TEMP 36.4–37.1; O2SAT 94–100
--- NOTE | 2024-04-08 11:00 | RT.EKG_ITS ---
APPROVED REPORT Exam: Resting ECG Reason for Exam: SOB Patient Location: E HR:72 bpm ECG Measurements Heart Rate 72 AXIS IL 142 P 74 QRSd 106 QRS -41 QT 441 T 81 QTc 482 Conclusion Sinus rhythm...normal P axis, V-rate 60- 99 LVH with secondary repolarization abnormality...multi-LVH criteria, abnrm ST-T ST elevation suggests acute pericarditis...ST >0.10mV, ant/lat/inf new twave inv aVL and V6
--- NOTE | 2024-04-08 11:30 | DI.US_ITS ---
APPROVED REPORT EXAM: Comprehensive 2D, Doppler, and color-flow Echocardiogram Patient Location: ER Room/Bed: 8 Fabrication Machine Operator: Jamie Smith RDCS (AE) Conclusion Concentric left ventricular hypertrophy. Small left ventricular chamber size. Ejection fraction is 55%. Ventricle is stiff Normal right ventricular size and function Moderately dilated left atrium. Normal right atrial size Aortic valve is sclerotic. There is mild aortic stenosis with mean gradient of 9 mmHg. There is mo derate aortic regurgitation Severe mitral annular calcification. Moderate eccentric mitral regurgitation Mild to moderate tricuspid regurgitation. Estimated right ventricular systolic pressure is 42 mmHg Ascending aorta measures 3.89 cm Wall motion Left Ventricle Left ventricular cavity is small. The left ventricular systolic function is normal. The left ventricu lar ejection fraction is within the normal range. Mild concentric left ventricular hypertrophy. There are no segmental wall motion abnormalities There is no ventricular septal defect visualized. LVEF 55 % Right Ventricle The right ventricle is normal size. Right ventricular systolic function is grossly normal. Atria Left atrium is moderately dilated. The right atrium size is normal. The interatrial septum is intact with no evidence for an atrial septal defect. Aortic Valve The Aortic valve is sclerotic. Aortic valve is trileaflet. Mild aortic stenosis, mean gradient 9 mmHg Moderate aortic regurgitation. Mitral Valve Severe mitral annular calcification. Moderate mitral regurgitation. Tricuspid Valve The tricuspid valve is normal in structure. There is no tricuspid valve stenosis. Mild to moderate tr icuspid regurgitation. The RVSP is 42.4 mmHg. Pulmonic Valve The pulmonary valve is normal in structure. There is no pulmonic valvular stenosis. Trace pulmonic re gurgitation. Great Vessels The aortic root is normal in size. The ascending aorta is moderately dilated. Aortic arch is not well visualized. IVC is normal in size and collapses >50% with inspiration. Pericardium There is no pericardial effusion. 2D Dimensions IVSD d PLAX 1.12 cm F: 0.6-1.0 Ao Root d 2.69 cm F: 2.7 - 3.3 LVPW d PLAX 1.11 cm F: 0.6 - 1.0 Ao Asc Diam d 3.89 cm F: 2.3 - 3.1 LVID d PLAX 3.70 cm F: 3.8 - 5.2 LVDs 2.82 cm F: 2.2 - 3.5 LV EF Teichholz 48.3 % FS 23.78 % LV EDV (Teich) 58.1 mL LV ESV (Teich) 30.1 mL Stroke Vol Index (Teich) 18.83 M-Mode TAPSE 2.28 cm (M/F) >1.7 Auto EF LV EDV A4C 31.9 mL LV EDV A2C 76.4 mL LV EDV BP 49.6 mL LV ESV A4C 15.5 mL LV ESV A2C 35.5 mL LV ESV BP 23.9 mL LVEF(%) A4C 51.3 % LVEF(%) A2C 53.5 % LVEF(%) BP 51.8 % LV SV A4C 16.4 ml LV SV A2C 40.9 ml LV SV BP 25.7 ml LV CO A4C 1.2 L/min LV CO A2C 3.0 L/min LV CO BP 2.1 L/min HR A4C 72.58 BPM HR A2C 72.41 BPM LV EDV Index (BP) LA Volume LA Length A4C 4.7 cm LA Length A2C 5.6 cm LA Area A4C s 16.93 cm2 LA Area A2C s 24.18 cm2 LA Vol A4C A-L 51.73 mL LA Vol A2C A-L 88.56 mL LA Vol Biplane A-L 73.9 mL LA Vol/BSA A4C A-L LA Vol/BSA A2C A-L LA Vol/BSA BP A-L 49.6 mL/m2 LA Vol A4C MOD 49.6 mL LA Vol A2C MOD 82.9 mL LA Vol BP MOD 69.4 mL RA Volume RA Area A4C 8.5 cm2 RA ESV A4C (A-L) 19.0mL RA Vol/BSA A4C A-L RA Length A4C 3.2 cm RA ESV A4C (MOD) 17.6mL LV Diastology MV E' medial 0.058 (>0.07 m/s) MV E Vmax 1.55 (0.4-1.3 m/s) MV E/E' MED 26.81 (<14) MV A Vmax 1.70 (0.4-1.3 m/s) MV E' lateral 0.063 (>0.1 m/s) E/A Ratio 0.9 MV E/E' LAT 24.54 (<14) MV E' Average 0.061 m/s MV E/E'(average) 25.62 Aortic Valve AoV Vmax 2.15 m/s LVOT Vmax 1.34 m/s AoV Peak Grad 37.2 mmHg LVOT Peak Grad 7.2 mmHg AoV Area (Vmax) 1.25 cm2 LVOT VTI 0.323 m AoV VTI 0.475 m LVOT Mean Grad 3.7 mmHg AoV Mean Phillip. 1.40 m/s LVOT SV 64.90 mL AoV Mean Grad 9.2 mmHg LVOT Diam s 1.60 cm AoV Area (VTI) 1.37 cm2 AV Regurg Peak Gr. 18.56 mmHg Velocity Ratio 0.62 AR Decel Thurston 2.5m/sec2 AR DT 1488 msec AR PHT 431 msec AR Vmax 3.73 m/s Mitral Valve MV DT 269 (160-240 msec) MV Vmax TIPS 2.69 m/s MV Mean Grad 12.6 (<2mmHg) MV VTI 0.739 m Pulmonary Valve PV Vmax 1.06 (0.5-1.5 m/s) RVOT Vmax 0.94 m/s PV Peak Grad 4.5 mmHg RVOT Peak Gr. 3.6 mmHg PV Mean Phillip 0.82 m/s RVOT VTI 0.237 m PV Mean Grad 3.0 mmHg RVOT Mean Gr. 2.1 mmHg Tricuspid Valve RA Pressure 3.00 mmHg TR Vmax 3.14 m/s TR Peak Grad 39.4 mmHg RVSP (TR) 42.4 mmHg
[2024-04-08 11:44] LABS: Abs Immature Grans 0.03 10^3/uL (0.0-0.06); Absolute Basophil Count 0.01 10^3/uL (0.0-0.2); Absolute Lymphocyte Count 0.96 10^3/uL (1.2-3.4); Absolute Neutrophil Count 5.17 10^3/uL (1.2-6.7); Basophils % 0.1 %; HCT 30.9 % (36.0-46.0); HGB 10.1 g/dL (11.2-15.7); Immature Grans % 0.4 %; Lymphocytes % 13.8 %; MCH 29.4 pg (27.0-33.0); MCHC 32.7 % (32.0-36.0); MCV 90 fL (80-95); MPV 9.9 fL (8.0-11.0); Monocytes % 11.5 %; Neutrophils % 74.2 %; Platelet Count 239 10^3/uL (130-400); RBC 3.44 10^6/uL (3.93-5.22); RDW 13.6 % (11.7-14.6); RDW-SD 44.4 fL; WBC 6.97 10^3/uL (4.4-10.8)
[2024-04-08 12:15] LABS: Troponin I 20 ng/L (<or=51)
[2024-04-08 12:18] LABS: ALT 36 U/L (14-59); AST 44 U/L (15-37); Alkaline Phosphatase 128 U/L (46-116); BUN 22 mg/dL (7-18); Bilirubin, Total 0.52 mg/dL (0.2-1.0); CREATININE 0.7 mg/dL (0.55-1.02); Calcium 8.5 mg/dL (8.5-10.1); Chloride 101 mmol/L (98-107); Estimated GFR 83.13 (mL/min/1.73m2); Glucose 111 mg/dL (74-106); Magnesium 1.8 mg/dL (1.8-2.4); NT-proBNP 2095 pg/mL (<300); Potassium 4.6 mmol/L (3.5-5.1); Sodium 136 mmol/L (136-145); TSH (W/Ref FT4) 3.36 uIU/mL (0.36-3.74); Total Protein 6.5 g/dL (6.4-8.2)
[2024-04-08] MEDS: Omnipaque 350 MG/ML 500 ML BTL-Imaging package 70 ML IJ (12:48)
[2024-04-08] MEDS: Normal Saline - Diluent 50 ML VIAL IJ (12:49)
--- NOTE | 2024-04-08 12:53 | DI.CT_ITS ---
Exam(s) CT CHEST PE CTA EXAM: CT CHEST PE CTA CLINICAL HISTORY: shortness of breath, left leg swelling, murmur. TECHNIQUE: Imaging Protocol: Axial CT angiography was performed with multi-slice acquisition and mu lti-planar and/or 3D reconstructions. Lung Computer Aided Detection (CAD) was utilized. CONTRAST MATERIAL: Intravenous: Omnipaque 350 contrast volume:70 mL COMPARISON: CT CT CHEST/ABD/PEL W from 12/30/2022 FINDINGS: The examination is limited due to patient motion artifact. Tracheobronchial tree: Patent where visualized. No bronchiectasis. Pulmonary parenchyma: There are moderate size bilateral pleural effusions and subjacent atelectasis i n the left lower lobe. There are ground-glass opacities seen within the lungs which may reflect atel ectasis, inflammation or infection. No focal consolidating infiltrates are seen. Pulmonary Arteries: No evidence of filling defect to suggest pulmonary emboli. Mediastinum and Ai: No dominant adenopathy or fluid collection. The esophagus is unremarkable. Visualized thyroid gland: Unremarkable. Pleura: No pneumothorax. Heart: Heart is at the upper limits of normal in size. Coronary artery calcifications are present. Mitral calcification is present. No pericardial effusion. Aorta: Due to the timing of the bolus, opacification of the thoracic aorta is suboptimal. Atheroscle rotic calcification is present. The ascending thoracic aorta measures 4.4 x 4.2 cm. Upper abdomen: Unremarkable. Soft tissues: Unremarkable. Bones: Within normal limits for the patient's age.There are marked degenerative changes of the should ers, left greater than right. IMPRESSION: 1. No evidence of a pulmonary embolism. 2. Moderate size bilateral pleural effusions and subjacent atelectasis. The heart is at the upper li mits of normal in size. Fluid overload/congestive heart failure should be considered. Please correl ate clinically. 3. The ascending thoracic aorta measures 4.4 x 4.2 cm. RADIATION DOSE DELIVERED: 35.66mGy.cm Total DLP DATA REPOSITORY: All CT scans at this facility are submitted to the National Radiology Data Registry (NRDR) Dose Index Registry (DIR) with the [employer] (ACR). RADIATION OPTIMIZATION: All CT scans at this facility use at least one of these dose optimization te chniques: automated exposure control; mA and/or kV adjustment per patient size (includes targeted exa ms where dose is matched to clinical indication); or iterative reconstruction.
[2024-04-08 13:29] LABS: Troponin I 21 ng/L (<or=51)
[2024-04-08] MEDS: Furosemide 40 MG/4 ML VIAL IVP (13:44)
--- NOTE | 2024-04-08 15:00 | W.ED.GENAD ---
Discharge Plan Disposition Patient Disposition: Admit to [facility] Condition: Serious Discharge Details Clinical Impression: CHF (congestive heart failure), Essential hypertension Admit Date/Time: 04/08/24 14:58 Admit Provider: Chip Preston Attending Provider: Chip Preston Primary Care Provider: Kaci Leigh ED Provider: Kym Gomez Discharge Data Discharge Date/Time-TO BE ENTERED AT DEPARTURE: 04/08/24 16:30 HPI General Date/Time Provider Initiated Documentation: 04/08/24 11:29. HPI Narrative: This 88-year-old male with past medical history of stroke, carotid endarterectomy, hypertension, GI bleed, hyperlipidemia, peripheral vascular disease presents with reports of shortness of breath and leg swelling that started approximately a week ago. She states she has not been unable to sleep flat in her bed secondary to shortness of breath. Family called today she was very dyspneic even speaking on the phone. Denies prior history of diuretics or CHF tach documentation. Denies history of coronary artery disease known to her. States she never had leg swelling before. She states her left leg is worse than the right. Denies any associated chest discomfort fever or chills. Denies any new falls or injuries. Denies any new medications and taking all of her prescribed medications. Related Data Home Medications ?Medication ?Instructions ?Recorded ?Confirmed Calcium 600+Minerals Tablet 1 ea PO DAILY 08/20/12 04/08/24 glucosamin 375 mg-chond 300 1,500 ea PO DAILY 08/20/12 04/08/24 mg-collagen 50 mg-hyaluronic acid 2 mg cap lecithin 1,200 mg capsule 1,360 mg PO DAILY 08/20/12 04/08/24 cholecalciferol (vitamin D3) 25 1,000 unit PO DAILY 01/14/17 04/08/24 mcg (1,000 unit) tablet multivitamin 1 tab PO DAILY 08/25/18 04/08/24 omega 3-khs-rrg-fish oil 1,000 mg 1 cap PO DAILY 08/25/18 04/08/24 (120 mg-180 mg) capsule (Fish Oil) Pill Splitter #1 ea 02/05/22 04/08/24 acetaminophen 325 mg tablet 650 mg PO Q6H PRN 01/31/23 04/08/24 levothyroxine 25 mcg tablet See Rx Instructions .Route 07/07/23 04/08/24 .COMPLEX #90 tabs lisinopril 20 mg tablet See Rx Instructions .Route 12/25/23 04/08/24 .COMPLEX #90 tabs clopidogrel 75 mg tablet See Rx Instructions .Route 12/29/23 04/08/24 .COMPLEX #45 tabs biotin 5,000 mcg chewable tablet 5,000 mcg PO DAILY 01/12/24 04/08/24 Previous Rx's ?Medication ?Instructions ?Recorded Pill Splitter #1 ea 02/05/22 levothyroxine 25 mcg tablet See Rx Instructions .Route 07/07/23 .COMPLEX #90 tabs lisinopril 20 mg tablet See Rx Instructions .Route 12/25/23 .COMPLEX #90 tabs clopidogrel 75 mg tablet See Rx Instructions .Route 12/29/23 .COMPLEX #45 tabs Allergies Allergy/AdvReac Type Severity Reaction Status Date / Time Penicillins AdvReac Intermediate Other (See Verified 04/08/24 11:19 Comment) Influenza Virus Vaccines AdvReac sick for 2 Verified 04/08/24 11:19 wks following flu vaccine 02/24/18 General Stated Complaint: SOB BRENDAN: 3 Exam Narrative Exam Narrative: Alert and oriented 88-year-old female, with mild dyspnea with speech, no significant respiratory distress, murmur cardiac rate rhythm regular, no abdominal tenderness, peripheral edema, 3+ left, 2+ right, distal pulses intact Course Vital Signs Vital signs: Vital Signs Temperature 36.4 C 04/08/24 11:08 Pulse 74 04/08/24 11:08 Respiratory Rate 18 04/08/24 11:08 Blood Pressure 165/61 H 04/08/24 11:08 Pulse Oximetry 97 04/08/24 11:08 Temperature 36.4 C 04/08/24 11:25 Temperature Source Oral 04/08/24 11:25 Pulse 75 04/08/24 13:46 Pulse 78 04/08/24 13:46 Respiratory Rate 21 04/08/24 13:46 Respiratory Effort Short of Breath 04/08/24 11:25 Blood Pressure 193/81 H 04/08/24 13:46 Blood Pressure Mean 122 04/08/24 13:46 Pulse Oximetry 99 04/08/24 13:40 Oxygen Delivery Method Room Air 04/08/24 11:25 Oxygen Flow Rate 0 04/08/24 11:25 Pain Level 0 04/08/24 11:25 Lab/Test Results Lab/Test Results: Laboratory Tests Range/Units 04/08/24 04/08/24 04/08/24 11:37 12:53 14:30 WBC (4.4-10.8) 10^3/uL 6.97 RBC (3.93-5.22) 10^6/uL 3.44 L Hgb (11.2-15.7) g/dL 10.1 L Hct (36.0-46.0) % 30.9 L MCV (80-95) fL 90 MCH (27.0-33.0) pg 29.4 MCHC (32.0-36.0) % 32.7 RDW (11.7-14.6) % 13.6 Plt Count (130-400) 10^3/uL 239 MPV (8.0-11.0) fL 9.9 Immature Gran % % 0.4 Neutrophils % % 74.2 Lymphocytes % % 13.8 Monocytes % % 11.5 Eosinophils % % 0.0 Basophils % % 0.1 Nucleated RBC % (0.0-0.3) % 0.0 Absolute Neutrophils (1.2-6.7) 10^3/uL 5.17 Absolute Lymphocytes (1.2-3.4) 10^3/uL 0.96 L Absolute Monocytes (0.1-0.8) 10^3/uL 0.80 Absolute Eosinophils (0.0-0.7) 10^3/uL 0.00 Absolute Basophils (0.0-0.2) 10^3/uL 0.01 Sodium (136-145) mmol/L 136 Potassium (3.5-5.1) mmol/L 4.6 Chloride (98-107) mmol/L 101 Carbon Dioxide (21.0-32.0) mmol/L 29.0 Anion Gap (3-11) mmol/L 6.0 BUN (7-18) mg/dL 22 H Creatinine (0.55-1.02) mg/dL 0.7 Est GFR (CKD-EPI 2020) (mL/min/1.73m2) 83.13 Glucose (74-106) mg/dL 111 H Calcium (8.5-10.1) mg/dL 8.5 Magnesium (1.8-2.4) mg/dL 1.8 Total Bilirubin (0.2-1.0) mg/dL 0.52 AST (15-37) U/L 44 H ALT (14-59) U/L 36 Alkaline Phosphatase (46-116) U/L 128 H Troponin I (<or=51) ng/L 20 21 Cancelled NT-Pro-B Natriuret Pep (<300) pg/mL 2095 H Total Protein (6.4-8.2) g/dL 6.5 Albumin (3.4-5.0) g/dL 3.0 L TSH (0.36-3.74) uIU/mL 3.36 Medical Decision Making 88-year-old female presenting with worsening dyspnea and peripheral edema no history of CHF. Ordered CT a PE secondary to left lower extremity swelling with acute shortness of breath. Pleural effusions noted per radiology interpretation and my review, no evidence of PE. Echocardiogram is ordered secondary to a murmur on exam, moderate aortic and mitral stenosis ejection fraction 55%. 40 mg of Lasix IV was initiated patient has had excellent urinary output, will document intake and output, initially patient's blood pressure was 165/60, her blood pressure now is 2 health 5/80 we will give 15 mg of labetalol and start oral beta-marco. Case discussed with hospitalist, will admit patient for hypertensive urgency, CHF requiring diuresis with cardiomegaly and bilateral pleural effusions. No indication for transfer to tertiary care secondary to echocardiogram being stable. Agreeable to admission at this time. Quality:SDOH Health Related Social Needs: No Data to Display PFSH All Active Problems (Updated 04/09/24 @ 22:32 by KVNG Spicer) CHF (congestive heart failure) (Chronic) Hyponatremia (Acute ~03/2023) History of GI bleed (Acute ~10/2022) Other and unspecified hyperlipidemia (Acute 11/19/12) Statin-controlled Essential hypertension (Chronic 07/13/14) History of stroke (Chronic ~2014) Occurred while taking ASA, so switch to Plavix Hypothyroidism (Chronic) Osteoporosis, unspecified (Chronic 11/19/12) Never treated with bisphosphonates per pt Carotid artery stenosis (Acute 07/11/11) R[place] [facility] [place] Medical History Anemia 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 Marla Nam Right eye Dr. Marla Nam left eye Extraction of cataract (12/21/15) Dr. Marla Nam Right eye Dr. Marla Nam left eye Carotid endarterectomy Family History Father , [place] at age 65. Heart disease Mother , cva at age 93. Stroke Social History Smoking/Tobacco Use Status: Never Smoking risk assessment performed?: Yes Alcohol Intake: former Drug use: Never Substance use type: does not use Adopted: No Caregiver/Support person: No Foster care: No Housing: house Number of Children: 2 number of grandchildren: 3 Current gender identity: female What is your relationship status?: Panel score (0-1 are the most socially isolated patients): 0 What type of physical activity do you participate in: walking and other Details: weights, squats, leg lifts Duration: 15-30 minutes/day Frequency: 5-6 times per week Seatbelt use: always Drive intox or ride w/intox winch driver: No Working smoke detector in home: Yes Fire extinguisher in home: Yes Carbon monox detector in home: Yes Do you feel safe at home: Yes Do you feel safe in your relationship?: Yes Victim of physical abuse: No Victim of emotional abuse: No Victim of sexual abuse: No Would you like helpful sources: No Additional Social history: pt lives in a house, daughter lives in the other side of home.
--- NOTE | 2024-04-08 15:33 | HPE_ITS ---
Date of service: 04/08/24 Time of Service: 15:33 Assessment and Plan Assessment and plan (1) Essential hypertension: Status: Chronic Assessment and plan: Pt with significant elevation in her BP. Will continue brisk diuresis, add prn and scheduled bb, will add SGLT2 inhibitors (2) Anxiety: Assessment and plan: stable (3) Mitral valve prolapse: Assessment and plan: will await formal read. (4) CHF (congestive heart failure): Status: Chronic Assessment and plan: This is an acute exacerbation of CHF as this is a new diagnosis. Will add bb, SGLT2 and continue with diuretics (5) Carotid artery stenosis: Status: Acute (6) Hypothyroidism: Status: Chronic Assessment and plan: cw oral replacement 25mcg? daily (7) History of stroke: Status: Chronic Assessment and plan: pt on plavix but don't see a statin. Will check a lipid panel. History of Present Illness Narrative: This is a 88-year-old female who has had remarkable health considering her age who presents to the ED with worsening shortness of breath over the last few days. Patient states that she has noticed increasing swelling in her bilateral lower extremities with more swelling in the left as well as with orthopnea and nocturnal dyspnea. Patient does take an SANGITA inhibitor as an outpatient but does not take a diuretic or a beta-marco. The patient did get a POCUS echocardiogram that showed an EF of approximately 55% and aortic and mitral regurgitations. Patient was also noted to be hypertensive with blood pressures with a systolic over 200. Considering her new onset symptomology and concerns for worsening congestive heart failure patient was admitted to the hospital service for further evaluation and treatment. In reviewing her chart she did get an echocardiogram done in December 2022 for preop clearance as well as syncope. At that time her ejection fraction was 60% she did have a moderately dilated left atrium she did have an aortic valve that is sclerotic and trileaflet with mild to moderate aortic regurgitation. She also has severe mitral annular calcification with mitral stenosis and regurgitation. Review of Systems All systems reviewed & are unremarkable except as noted in HPI and below PFSH All Active Problems (Updated 04/08/24 @ 15:57 by Dayron Morton MD) CHF (congestive heart failure) (Chronic) Hyponatremia (Acute ~03/2023) History of GI bleed (Acute ~10/2022) Other and unspecified hyperlipidemia (Acute 11/19/12) Statin-controlled Essential hypertension (Chronic 07/13/14) History of stroke (Chronic ~2014) Occurred while taking ASA, so switch to Plavix Hypothyroidism (Chronic) Osteoporosis, unspecified (Chronic 11/19/12) Never treated with bisphosphonates per pt Carotid artery stenosis (Acute 07/11/11) [place] [facility] [place] Medical History Anemia 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 Marla Nam Right eye Dr. Marla Nam left eye Extraction of cataract (12/21/15) Dr. Marla Nam Right eye Dr. Marla Nam left eye Carotid endarterectomy Family History Father , [place] at age 65. Heart disease Mother , cva at age 93. Stroke Social History Smoking/Tobacco Use Status: Never Smoking risk assessment performed?: Yes Alcohol Intake: former Drug use: Never Substance use type: does not use Adopted: No Caregiver/Support person: No Foster care: No Housing: apartment Number of Children: 2 number of grandchildren: 3 Current gender identity: female What is your relationship status?: Panel score (0-1 are the most socially isolated patients): 0 What type of physical activity do you participate in: walking and other Details: weights, squats, leg lifts Duration: 15-30 minutes/day Frequency: 5-6 times per week Seatbelt use: always Drive intox or ride w/intox route sales driver: No Working smoke detector in home: Yes Fire extinguisher in home: Yes Carbon monox detector in home: Yes Do you feel safe at home: Yes Do you feel safe in your relationship?: Yes Victim of physical abuse: No Victim of emotional abuse: No Victim of sexual abuse: No Would you like helpful sources: No Additional Social history: pt lives in a house, daughter lives in the other side of home. Meds Allergies and Home Medications Allergies Allergy/AdvReac Type Severity Reaction Status Date / Time Penicillins AdvReac Intermediate Other (See Verified 04/08/24 11:19 Comment) Influenza Virus Vaccines AdvReac sick for 2 Verified 04/08/24 11:19 wks following flu vaccine 02/24/18 Home Medications ?Medication ?Instructions ?Recorded ?Confirmed ?Type Calcium 600+Minerals Tablet 1 ea PO DAILY 08/20/12 04/08/24 History glucosamin 375 mg-chond 300 1,500 ea PO DAILY 08/20/12 04/08/24 History mg-collagen 50 mg-hyaluronic acid 2 mg cap lecithin 1,200 mg capsule 1,360 mg PO DAILY 08/20/12 04/08/24 History cholecalciferol (vitamin D3) 25 1,000 unit PO DAILY 01/14/17 04/08/24 History mcg (1,000 unit) tablet multivitamin 1 tab PO DAILY 08/25/18 04/08/24 History omega 9-sft-qju-fish oil 1,000 mg 1 cap PO DAILY 08/25/18 04/08/24 History (120 mg-180 mg) capsule (Fish Oil) Pill Splitter #1 ea 02/05/22 04/08/24 Rx acetaminophen 325 mg tablet 650 mg PO Q6H PRN 01/31/23 04/08/24 History levothyroxine 25 mcg tablet See Rx Instructions .Route 07/07/23 04/08/24 Rx .COMPLEX #90 tabs lisinopril 20 mg tablet See Rx Instructions .Route 12/25/23 04/08/24 Rx .COMPLEX #90 tabs clopidogrel 75 mg tablet See Rx Instructions .Route 12/29/23 04/08/24 Rx .COMPLEX #45 tabs biotin 5,000 mcg chewable tablet 5,000 mcg PO DAILY 01/12/24 04/08/24 History Exam Narrative Exam Narrative: Head eyes ears nose and throat: NCAT MMM EOPI PERRLA Neck: NO LAD no JVD No thyroidmegaly CV: sinus arrhythmia no MRG be my examination PULM: Bilat wheeze with crackles abd: s/nt/nd/bsa ext: 3 plus LLE 2 plus RLE Results Labs 04/08/24 11:37 04/08/24 11:37 Labs: Laboratory Results - last 24 hr 04/08/24 04/08/24 04/08/24 11:37 12:53 14:30 WBC 6.97 RBC 3.44 L Hgb 10.1 L Hct 30.9 L MCV 90 MCH 29.4 MCHC 32.7 RDW 13.6 Plt Count 239 MPV 9.9 Immature Gran % 0.4 Neutrophils % 74.2 Lymphocytes % 13.8 Monocytes % 11.5 Eosinophils % 0.0 Basophils % 0.1 Nucleated RBC % 0.0 Absolute Neutrophils 5.17 Absolute Lymphocytes 0.96 L Absolute Monocytes 0.80 Absolute Eosinophils 0.00 Absolute Basophils 0.01 Sodium 136 Potassium 4.6 Chloride 101 Carbon Dioxide 29.0 Anion Gap 6.0 BUN 22 H Creatinine 0.7 Est GFR (CKD-EPI 2020) 83.13 Glucose 111 H Calcium 8.5 Magnesium 1.8 Total Bilirubin 0.52 AST 44 H ALT 36 Alkaline Phosphatase 128 H Troponin I 20 21 Cancelled NT-Pro-B Natriuret Pep 5 H Total Protein 6.5 Albumin 3.0 L TSH 3.36 Last Vital Signs Temp 36.4 C 04/08/24 11:25 Pulse 75 04/08/24 13:46 Resp 21 04/08/24 13:46 BP 193/81 H 04/08/24 13:46 Pulse Ox 99 04/08/24 13:40 Time Spent Time spent with Patient: 40-54 minutes Time was spent: preparing to see the patient(eg.review tests), obtaining and/or reviewing separately otained hiistory, ordering medications,tests, procedures, referring, communicating with other health professional healthcare representative, indepentently interpreting results, counseling the patient and care coordination
--- NOTE | 2024-04-08 16:49 | W.PC.ACHO ---
Registration Status: Primary Language: Preferred Language: ED Information & Data Chief Complaint SOB 04/08/24 15:00 Triage Note increasing SOB with pedal 04/08/24 11:08 edema for past week. needs to sleep upright. HTN. given 2 nitro by EMS. denies CP. wheezes/crackles noted by EMS prior to nitro which seems to have resolved. Medical / Surgical History (Last Reviewed 12/04/23 @ 17:02 by Kaci Leigh NP) Anemia Raynaud phenomenon Pressure injury of coccygeal region, stage 3 Left patella fracture (11/30/22) Fracture of left distal radius (11/30/22) Diverticula of colon (~10/2022) GI bleeding (~10/2022) Anxiety Closed fracture of left proximal humerus (11/21/18) Mitral valve prolapse (07/11/11) Diverticulosis of small intestine (07/11/11) Abnormal liver function (12/04/12) (Last Reviewed 12/04/23 @ 17:02 by Kaci Leigh NP) Closed right hip fracture Extraction of cataract (01/04/16) Extraction of cataract (12/21/15) Carotid endarterectomy Most Recent Vital Signs Temperature 36.4 C 04/08/24 11:25 Temperature Source Oral 04/08/24 11:25 Pulse 83 04/08/24 16:16 Pulse 91 H 04/08/24 16:10 Respiratory Rate 22 04/08/24 16:16 Respiratory Effort Short of Breath 04/08/24 11:25 Blood Pressure 182/63 H 04/08/24 16:16 Blood Pressure Mean 118 04/08/24 16:07 Pulse Oximetry 98 04/08/24 16:16 Oxygen Delivery Method Room Air 04/08/24 11:25 Oxygen Flow Rate 0 04/08/24 11:25 Pain Level 0 04/08/24 16:29 Allergies Penicillins Adverse Reaction (Intermediate, Verified 04/08/24 11:19) Other (See Comment) vomiting Influenza Virus Vaccines Adverse Reaction (Verified 04/08/24 11:19) sick for 2 wks following flu vaccine 02/24/18 Precautions Isolation Standard precaution 04/08/24 11:23 IV IV Catheter Type [Right Saline Lock Antecubital] IV Catheter Type [Left Forearm Saline Lock ] IV Catheter Gauge [Right 18 Antecubital] IV Catheter Gauge [Left 18 Forearm] Diagnostics 04/08/24 04/08/24 04/08/24 Range/Units 16:16 14:30 12:53 WBC (4.4-10.8) 10^3/uL RBC (3.93-5.22) 10^6/uL Hgb (11.2-15.7) g/dL Hct (36.0-46.0) % MCV (80-95) fL MCH (27.0-33.0) pg MCHC (32.0-36.0) % RDW (11.7-14.6) % Plt Count (130-400) 10^3/uL MPV (8.0-11.0) fL Immature Gran % % Neutrophils % % Lymphocytes % % Monocytes % % Eosinophils % % Basophils % % Nucleated RBC % (0.0-0.3) % Absolute Neutrophils (1.2-6.7) 10^3/uL Absolute Lymphocytes (1.2-3.4) 10^3/uL Absolute Monocytes (0.1-0.8) 10^3/uL Absolute Eosinophils (0.0-0.7) 10^3/uL Absolute Basophils (0.0-0.2) 10^3/uL Sodium (136-145) mmol/L Potassium (3.5-5.1) mmol/L Chloride (98-107) mmol/L Carbon Dioxide (21.0-32.0) mmol/L Anion Gap (3-11) mmol/L BUN (7-18) mg/dL Creatinine (0.55-1.02) mg/dL Est GFR (CKD-EPI 2020) (mL/min/1.73m2) Glucose (74-106) mg/dL Calcium (8.5-10.1) mg/dL Magnesium (1.8-2.4) mg/dL Total Bilirubin (0.2-1.0) mg/dL AST (15-37) U/L ALT (14-59) U/L Alkaline Phosphatase (46-116) U/L Troponin I Cancelled 21 (<or=51) ng/L NT-Pro-B Natriuret Pep (<300) pg/mL Total Protein (6.4-8.2) g/dL Albumin (3.4-5.0) g/dL Triglycerides Pending Total Cholesterol Pending LDL Cholesterol, Calc Pending HDL Cholesterol Pending TSH (0.36-3.74) uIU/mL 04/08/24 Range/Units 11:37 WBC 6.97 (4.4-10.8) 10^3/uL RBC 3.44 L (3.93-5.22) 10^6/uL Hgb 10.1 L (11.2-15.7) g/dL Hct 30.9 L (36.0-46.0) % MCV 90 (80-95) fL MCH 29.4 (27.0-33.0) pg MCHC 32.7 (32.0-36.0) % RDW 13.6 (11.7-14.6) % Plt Count 239 (130-400) 10^3/uL MPV 9.9 (8.0-11.0) fL Immature Gran % 0.4 % Neutrophils % 74.2 % Lymphocytes % 13.8 % Monocytes % 11.5 % Eosinophils % 0.0 % Basophils % 0.1 % Nucleated RBC % 0.0 (0.0-0.3) % Absolute Neutrophils 5.17 (1.2-6.7) 10^3/uL Absolute Lymphocytes 0.96 L (1.2-3.4) 10^3/uL Absolute Monocytes 0.80 (0.1-0.8) 10^3/uL Absolute Eosinophils 0.00 (0.0-0.7) 10^3/uL Absolute Basophils 0.01 (0.0-0.2) 10^3/uL Sodium 136 (136-145) mmol/L Potassium 4.6 (3.5-5.1) mmol/L Chloride 101 (98-107) mmol/L Carbon Dioxide 29.0 (21.0-32.0) mmol/L Anion Gap 6.0 (3-11) mmol/L BUN 22 H (7-18) mg/dL Creatinine 0.7 (0.55-1.02) mg/dL Est GFR (CKD-EPI 2020) 83.13 (mL/min/1.73m2) Glucose 111 H (74-106) mg/dL Calcium 8.5 (8.5-10.1) mg/dL Magnesium 1.8 (1.8-2.4) mg/dL Total Bilirubin 0.52 (0.2-1.0) mg/dL AST 44 H (15-37) U/L ALT 36 (14-59) U/L Alkaline Phosphatase 128 H (46-116) U/L Troponin I 20 (<or=51) ng/L NT-Pro-B Natriuret Pep 2095 H (<300) pg/mL Total Protein 6.5 (6.4-8.2) g/dL Albumin 3.0 L (3.4-5.0) g/dL Triglycerides Total Cholesterol LDL Cholesterol, Calc HDL Cholesterol TSH 3.36 (0.36-3.74) uIU/mL Intake and Output - 24 Hour Total 04/08/24 11:01 thru 04/08/24 15:16 Intake Total 10 Balance 10 Weight 55.3 kg Intake: IV 10 Other: # Voids 1 Falls Risk Assessment History of Falls No History 04/08/24 11:25 Contributing Factors Impairments 04/08/24 11:25 Ambulatory Aids Uses ambulatory device 04/08/24 11:25 Tubes/Lines None 04/08/24 11:25 Gait Evaluation W/no contributing factors 04/08/24 11:25 Cognition No cognitive impairment 04/08/24 11:25 Fall Total Score 28 04/08/24 11:25 Level of Risk Moderate Risk 04/08/24 11:25 Problems (Last Reviewed 12/04/23 @ 17:02 by Kaci Leigh NP) CHF (congestive heart failure) (Chronic) Essential hypertension (Chronic 07/13/14) History of stroke (Chronic ~2014) Hypothyroidism (Chronic) Carotid artery stenosis (Acute 07/11/11) v v v v v v v v v Sending and/or Receiving Nurses: Please use comment section below to note any information pertinent to the patient hand-off not included above. Information / Comments: Report received from: LARRY Lopez RN @ 16:15.
[2024-04-08 18:39] LABS: Calculated LDL 69 mg/dL (<100); Cholesterol 155 mg/dL (<200); HDL Cholesterol 79 mg/dL (40-60); Triglyceride 38 mg/dL (<150)
[2024-04-08] MEDS: Furosemide 100 MG/10 ML VIAL 60 MG IVP (19:49)
[2024-04-08] MEDS: Normal Saline Flush 10 ML SYR (20:11)
[2024-04-09 03:33] VITALS: BP 124/65; PULSE 84; RESP 16; TEMP 37.1; O2SAT 95
[2024-04-09] MEDS: Levothyroxine 25 MCG TAB PO (05:25)
[2024-04-09 07:44] VITALS: BP 138/65; PULSE 78; RESP 18; TEMP 36.9; O2SAT 99
[2024-04-09] MEDS: Omega-3 Fatty Acids 1000 MG CAP PO (09:24)
[2024-04-09] MEDS: Cholecalciferol (Vitamin D3) 1,000 UNIT TAB 1000 UNITS PO (09:24)
[2024-04-09] MEDS: Furosemide 100 MG/10 ML VIAL 60 MG IVP ×2 (09:24→14:51)
--- NOTE | 2024-04-09 09:24 | PDOC.CMIN ---
Date of service: 04/09/24 Time of Service: 09:24 Care Management Initial Assmt Initial Assessment Reason for Hospitalization: CHF - new onset Functional Status/Living Situation Patient Presentation: Dorie was sitting up in bed when CM met with her. She was pleasant and easily engaged with CM. Dorie lives in a duplex which she owns. She lives in a 2 bedroom unit on one side and her daughter lives in a 3 bedroom unit in the other part. She shared that they can enter each other's apartments through the basement which is handy. Dorie explained that her house is a centuries old schoolhouse that she had renovated.. 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 She is independent with ADLs and uses a walker for ambulation. Town of Residence: [place] Resides with: Alone (lives in her own apartment but daughter lives on other side of the duplex) Significant Other/Family: [facility] Employment Status: Retired Instrumental Activities of Daily Living (ADLs): Independent Medications Medication Management: No Issues/Barriers identified Physical Functioning/Mobility Assistive Device: walker Advance Directives Advance Directives: Do you have an Advance Directive: Y 09/01/20 07:54 AD On File at [facility]: Y 12/08/22 01:45 Date Asked 04/08/24 04/08/24 14:27 AD Date Reviewed 04/16/23 04/16/23 15:15 COLST On File at [facility] COLST Date Scanned Code Status Resuscitation Status Full Code Portal Pt does not currently have a portal and education provided: No Insurance Coverage/Financial Issues Insurance: Medicare Medicaid Care Team Visit Care Team Role Provider Type Kaci Leigh NP Primary Care Provider NURSE PRACTITIONER KVNG Spicer Emergency Provider [employer] Chip Preston Admit Provider [facility] STAFF PHYSICIAN Attending Provider Discharge Potential Discharge Needs: PCP F/U Appt Anticipated Barriers to Discharge: None Identified Patient/Family Education Needs: Review discharge instructions, discuss Ask Me Three Transportation: Private vehicle Plan: Anticipate Dorie will be discharged home, likely with new home health services for nursing, when medically cleared. She will follow up with her PCP and plan of care and transport with family. CM will follow and continue to assess for dsicharge needs. PFSH All Active Problems (Updated 04/08/24 @ 15:57 by Dayron Morton MD) CHF (congestive heart failure) (Chronic) Hyponatremia (Acute ~03/2023) History of GI bleed (Acute ~10/2022) Other and unspecified hyperlipidemia (Acute 11/19/12) Statin-controlled Essential hypertension (Chronic 07/13/14) History of stroke (Chronic ~2014) Occurred while taking ASA, so switch to Plavix Hypothyroidism (Chronic) Osteoporosis, unspecified (Chronic 11/19/12) Never treated with bisphosphonates per pt Carotid artery stenosis (Acute 07/11/11) R-sided endarterectomy; [facility] [place]; 2007 Medical History Anemia 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 Marla Nam Right eye Dr. Marla Nam left eye Extraction of cataract (12/21/15) Dr. Marla Nam Right eye Dr. Marla Nam left eye Carotid endarterectomy Family History Father , [place] at age 65. Heart disease Mother , cva at age 93. Stroke Social History Smoking/Tobacco Use Status: Never Smoking risk assessment performed?: Yes Alcohol Intake: former Drug use: Never Substance use type: does not use Adopted: No Caregiver/Support person: No Foster care: No Housing: house Number of Children: 2 number of grandchildren: 3 Current gender identity: female What is your relationship status?: Panel score (0-1 are the most socially isolated patients): 0 What type of physical activity do you participate in: walking and other Details: weights, squats, leg lifts Duration: 15-30 minutes/day Frequency: 5-6 times per week Seatbelt use: always Drive intox or ride w/intox driver courier: No Working smoke detector in home: Yes Fire extinguisher in home: Yes Carbon monox detector in home: Yes Do you feel safe at home: Yes Do you feel safe in your relationship?: Yes Victim of physical abuse: No Victim of emotional abuse: No Victim of sexual abuse: No Would you like helpful sources: No Additional Social history: pt lives in a house, daughter lives in the other side of home. SDOH(Care Management) Screening Will the Patient Participate in the Screening?: Unable to obtain
[2024-04-09] MEDS: Clopidogrel 75 MG TAB 37.5 MG PO (09:29)
[2024-04-09] MEDS: Metoprolol CR 25 MG TABCR 12.5 MG PO (09:31)
[2024-04-09] MEDS: Glucosamine/Chondroitin CAP 1 CAP PO (09:31)
[2024-04-09] MEDS: Multivitamin TAB 1 TAB PO (09:31)
[2024-04-09] MEDS: Calcium Carbonate 1.5 GM TAB PO (09:31)
[2024-04-09] MEDS: Lisinopril 20 MG TAB PO (09:32)
[2024-04-09] MEDS: Empaglifozin 10 MG TAB PO (09:32)
[2024-04-09 11:34] VITALS: BP 150/66; PULSE 71; RESP 19; TEMP 36.9; O2SAT 97
[2024-04-09 15:14] VITALS: BP 107/75; PULSE 74; RESP 18; TEMP 36.9; O2SAT 96
--- NOTE | 2024-04-09 15:36 | CHAPLAIN ---
Dorie ws resting in bed when I visited. She told me that she lives alone, but her house is connected to her daughter's. She seems to be well supported by in son and daughter and their spouses. Dorie told me that last year she fell in the basement where her exercise equipment is and she fell and broke her knee and he wrist. She's also broken her pelvis in the past. However she remains very independent with close supervision from her family. I explained my role and offered support.
--- NOTE | 2024-04-09 16:56 | PGE_ITS ---
Date of Service Date of service: 04/09/24 Time of Service: 16:56 Assessment and Plan Assessment and plan (1) Essential hypertension: Status: Chronic Assessment and plan: Pt with significant elevation in her BP. Will continue brisk diuresis, add prn and scheduled bb, 04/09/24 Pt's latest bp is 107/75 indicating good control. On lisinopril metoprolol, lasix. (2) Anxiety: Assessment and plan: stable (3) Mitral valve prolapse: Assessment and plan: will await formal read. Conclusion Concentric left ventricular hypertrophy. Small left ventricular chamber size. Ejection fraction is 55%. Ventricle is stiff Normal right ventricular size and function Moderately dilated left atrium. Normal right atrial size Aortic valve is sclerotic. There is mild aortic stenosis with mean gradient of 9 mmHg. There is moderate aortic regurgitation Severe mitral annular calcification. Moderate eccentric mitral regurgitation Mild to moderate tricuspid regurgitation. Estimated right ventricular systolic pressure is 42 mmHg Ascending aorta measures 3.89 cm (4) CHF (congestive heart failure): Status: Chronic Assessment and plan: This is an acute exacerbation of CHF as this is a new diagnosis. Will add bb, SGLT2 and continue with diuretics (5) Hypothyroidism: Status: Chronic Assessment and plan: cw oral replacement 25mcg? daily (6) History of stroke: Status: Chronic Assessment and plan: pt on plavix but don't see a statin. Will check a lipid panel. Subjective Subjective Interval history since last seen: Pt seen and examined in her room this am. Pt states her respiratory status has improved as well as her energy level. POC d/w pt as well as bedside nurse during MDR Exam Narrative Exam Narrative: Head eyes ears nose and throat: NCAT MMM EOPI PERRLA Neck: NO LAD no JVD No thyroidmegaly CV: sinus arrhythmia no MRG be my examination PULM: Bilat wheeze with crackles-improving abd: s/nt/nd/bsa ext: 3 plus LLE 2 plus RLE Objective Last Vital Signs Temp 36.9 C 04/09/24 15:14 Pulse 74 04/09/24 15:14 Resp 18 04/09/24 15:14 BP 107/75 04/09/24 15:14 Pulse Ox 96 04/09/24 15:14 Laboratory Results - last 24 hr 04/08/24 12:53 Triglycerides 38 Total Cholesterol 155 LDL Cholesterol, Calc 69 HDL Cholesterol 79 Time Spent with Patient Time Spent with Patient: 25-34 minutes Time was spent: preparing to see the patient(eg.review tests), obtaining and/or reviewing separately otained hiistory, ordering medications,tests, procedures, referring, communicating with other health transition of care specialist, indepentently interpreting results, counseling the patient and care coordination
[2024-04-09 19:38] VITALS: BP 103/68; PULSE 77; RESP 18; TEMP 37; O2SAT 97
[2024-04-09 23:23] VITALS: BP 126/64; PULSE 79; RESP 18; TEMP 36.7; O2SAT 97
[2024-04-10] MEDS: Levothyroxine 25 MCG TAB PO (05:43)
[2024-04-10 06:35] LABS: Abs Immature Grans 0.02 10^3/uL (0.0-0.06); Absolute Basophil Count 0.01 10^3/uL (0.0-0.2); Absolute Eosinophil Count 0.07 10^3/uL (0.0-0.7); Absolute Lymphocyte Count 1.56 10^3/uL (1.2-3.4); Absolute Monocyte Count 0.77 10^3/uL (0.1-0.8); Absolute Neutrophil Count 4.01 10^3/uL (1.2-6.7); Basophils % 0.2 %; Eosinophils % 1.1 %; HCT 32.6 % (36.0-46.0); HGB 11.3 g/dL (11.2-15.7); Immature Grans % 0.3 %; Lymphocytes % 24.2 %; MCH 30.6 pg (27.0-33.0); MCHC 34.7 % (32.0-36.0); MCV 88 fL (80-95); MPV 10.1 fL (8.0-11.0); Neutrophils % 62.2 %; Platelet Count 242 10^3/uL (130-400); RBC 3.69 10^6/uL (3.93-5.22); RDW 13.3 % (11.7-14.6); RDW-SD 43.2 fL; WBC 6.44 10^3/uL (4.4-10.8)
[2024-04-10 07:02] LABS: ALT 23 U/L (14-59); AST 29 U/L (15-37); Albumin 2.8 g/dL (3.4-5.0); Alkaline Phosphatase 116 U/L (46-116); Anion Gap 5.7 mmol/L (3-11); BUN 25 mg/dL (7-18); Bilirubin, Total 0.49 mg/dL (0.2-1.0); CO2 33.3 mmol/L (21.0-32.0); CREATININE 0.8 mg/dL (0.55-1.02); Calcium 8.6 mg/dL (8.5-10.1); Chloride 100 mmol/L (98-107); Estimated GFR 70.83 (mL/min/1.73m2); Glucose 98 mg/dL (74-106); Magnesium 1.9 mg/dL (1.8-2.4); Sodium 139 mmol/L (136-145); Total Protein 6.2 g/dL (6.4-8.2)
[2024-04-10 07:30] VITALS: O2SAT 98
[2024-04-10 07:38] VITALS: BP 120/65; PULSE 69; RESP 15; TEMP 36.1; O2SAT 98
[2024-04-10] MEDS: Multivitamin TAB 1 TAB PO (09:03)
[2024-04-10] MEDS: Empaglifozin 10 MG TAB PO (09:03)
[2024-04-10] MEDS: Potassium Chloride 20 MEQ TABCR 40 MEQ PO (09:03)
[2024-04-10] MEDS: Cholecalciferol (Vitamin D3) 1,000 UNIT TAB 1000 UNITS PO (09:04)
[2024-04-10] MEDS: Clopidogrel 75 MG TAB 37.5 MG PO (09:04)
[2024-04-10] MEDS: Calcium Carbonate 1.5 GM TAB PO (09:04)
[2024-04-10] MEDS: Lisinopril 20 MG TAB PO (09:04)
[2024-04-10] MEDS: Furosemide 40 MG TAB PO (09:04)
[2024-04-10] MEDS: Omega-3 Fatty Acids 1000 MG CAP PO (09:04)
[2024-04-10] MEDS: Metoprolol CR 25 MG TABCR 12.5 MG PO (09:04)
[2024-04-10] MEDS: Glucosamine/Chondroitin CAP 1 CAP PO (09:05)
[2024-04-10] MEDS: Normal Saline Flush 10 ML SYR IVP (09:12)
--- NOTE | 2024-04-10 10:04 | DSE_ITS ---
Date of service: 04/10/24 Time of Service: 10:04 DS: Diagnosis Discharge Diagnosis (1) Essential hypertension: Status: Chronic (2) Anxiety: (3) Mitral valve prolapse: (4) CHF (congestive heart failure): Status: Chronic (5) Hypothyroidism: Status: Chronic (6) History of stroke: Status: Chronic Discharge Plan Disposition Patient Disposition: Home Condition: Good Discharge Details Reason For Visit: chf, hypertension Admit Date/Time: 04/08/24 14:58 Admit Provider: Cihp Preston Attending Provider: Chip Preston Primary Care Provider: Kaci Leigh Hospital Course Hospital Course: Patient initially presented with signs and symptoms that were ultimately determined to be secondary to acute exacerbation of congestive heart failure, preserved ejection fraction, which is a new diagnosis for the patient as well as mitral valve prolapse, and moderate aortic regurg. She was started on a beta- marco, SGLT2 as well as experiencing significant improvement on lisinopril and Lasix. Ultimately, given that the patient experienced improvement of her symptoms it was determined that she was stable for discharge home. Home Meds and New Rx's Prescriptions: New furosemide 40 mg Tablet 40 mg PO DAILY Qty: 90 0RF potassium chloride [Klor-Con M20] 20 mEq Tablet,Er Particles/Crystals 40 meq PO DAILY Qty: 90 0RF metoprolol succinate 25 mg Tablet Extended Release 24 Hr 12.5 mg PO DAILY Qty: 90 0RF Jardiance 10 mg Tablet 10 mg PO QAM Qty: 90 0RF Continued acetaminophen 325 mg tablet 650 mg PO Q6H PRN multivitamin tablet 1 tab PO DAILY omega 1-iwl-vko-fish oil [Fish Oil] 1,000 mg (120 mg-180 mg) capsule 1 cap PO DAILY lecithin 1,200 MG capsule 1,360 mg PO DAILY xenthkms-ygmp-ysffcq-hyalur ac 1 EACH capsule 1,500 ea PO DAILY CALCIUM 600+MINERALS TABLET 1 EACH tablet 1 ea PO DAILY cholecalciferol (vitamin D3) 1,000 UNIT tablet 1,000 unit PO DAILY levothyroxine 25 mcg tablet See Rx Instructions .ROUTE .COMPLEX Qty: 90 3RF Dose Instruction: TAKE ONE TABLET BY MOUTH EVERY DAY Rx Instructions: TAKE ONE TABLET BY MOUTH EVERY DAY lisinopril 20 mg tablet See Rx Instructions .ROUTE .COMPLEX Qty: 90 3RF Dose Instruction: TAKE 1 TABLET BY MOUTH DAILY; DOSE INCREASE FOR GOAL BLOOD PRESSURE OF LESS THAN 140/90 Rx Instructions: TAKE 1 TABLET BY MOUTH DAILY; DOSE INCREASE FOR GOAL BLOOD PRESSURE OF LESS THAN 140/90 clopidogrel 75 mg tablet See Rx Instructions .ROUTE .COMPLEX Qty: 45 3RF Dose Instruction: TAKE ONE-HALF TABLET BY MOUTH EVERY DAY Rx Instructions: TAKE ONE-HALF TABLET BY MOUTH EVERY DAY biotin 5,000 mcg tablet,chewable 5,000 mcg PO DAILY Rx Instructions: pt reports she takes every other day No Action (DME) Pill Splitter See Rx Instructions .Route .MEDSUPPLY Qty: 1 2RF Rx Instructions: Please dispense to use to cut pills in half. Discharge Instructions Instructions: Heart Failure, Adult (DC) Stand Alone Forms: Nursing Discharge Form Referrals: Kaci Leigh NP [Primary Care Provider] - (Please call the office on Friday to set up a follow up appointment for within 1 to 2 weeks. ) Activity:: Activity as Tolerated Equipment/Supplies:: No Equipment Needed Diet:: As Tolerated Discharge Orders Discharge Orders: Discharge Order (Routine); Ordered 04/10/24 Ordered By: Buzz Vail DS: Summary Time Spent with Patient providing and/or coordinating discharge services: Greater than 30 minutes Status at Discharge Functional status at discharge: independent ambulation Overall status at discharge: patient is back to baseline Mental Status: mental status grossly normal Speech and Movement: speech and movement normal Mood: congruent mood Affect: normal affect Quality:SDOH Health Related Social Needs: No Data to Display Exam Narrative Exam Narrative: Well-appearing older female sitting up in the chair no acute distress, ANO x 4, heart regular rhythm, lungs clear auscultation bilaterally, abdomen soft, nontender, nondistended, significant improvement/almost complete resolution of bilateral lower extremity edema Psych Mental Status: mental status grossly normal Speech and Movement: speech and movement normal Mood: congruent mood Affect: normal affect DS: Data Vitals/I&O Vitals and I&O: Vital Signs Temperature 97.0 F L 04/10/24 07:38 Temperature Source Temporal Artery Scan 04/10/24 07:38 Pulse 69 04/10/24 07:38 Pulse Rhythm Regular 04/08/24 16:51 Pulse 91 H 04/08/24 16:10 Respiratory Rate 15 04/10/24 07:38 Respiratory Effort Normal 04/08/24 16:51 Respiratory Depth Normal 04/08/24 16:51 Respiratory Pattern Normal 04/08/24 16:51 Blood Pressure 120/65 04/10/24 07:38 Blood Pressure Mean 118 04/08/24 16:07 Pulse Oximetry 98 04/10/24 07:38 Oxygen Delivery Method Room Air 04/10/24 07:38 Oxygen Flow Rate 0 04/10/24 07:38 Pain Level 0 04/10/24 07:38 Comment nurse notified 04/08/24 23:06 Intake & Output 04/09/24 04/10/24 04/10/24 17:59 05:59 17:59 Intake Total 120 / 120 Output Total 1310 / 1310 600 / 1910 200 / 200 Balance -1310 / -1310 -480 / -1790 -200 / -200 Weight 102 lb 11.767 oz Intake: IV Oral 100 / 100 Output: Urine 1310 / 1310 600 / 1910 200 / 200 Other: Urine Color Yellow Yellow Yellow Urine Appearance Clear Clear Clear Urine Odor Normal Normal Normal Comment trace amount into commode Stool Size Moderate Stool Characteristics Formed Brown Data Completed and Pending Labs on day of discharge: Labs from last 24 hours 04/10/24 06:20 WBC 6.44 RBC 3.69 L Hgb 11.3 Hct 32.6 L MCV 88 MCH 30.6 MCHC 34.7 RDW 13.3 Plt Count 242 MPV 10.1 Immature Gran % 0.3 Neutrophils % 62.2 Lymphocytes % 24.2 Monocytes % 12.0 Eosinophils % 1.1 Basophils % 0.2 Nucleated RBC % 0.0 Absolute Neutrophils 4.01 Absolute Lymphocytes 1.56 Absolute Monocytes 0.77 Absolute Eosinophils 0.07 Absolute Basophils 0.01 Sodium 139 Potassium 3.0 L D Chloride 100 Carbon Dioxide 33.3 H Anion Gap 5.7 BUN 25 H Creatinine 0.8 Est GFR (CKD-EPI 2020) 70.83 Glucose 98 Calcium 8.6 Magnesium 1.9 Total Bilirubin 0.49 AST 29 ALT 23 Alkaline Phosphatase 116 Total Protein 6.2 L Albumin 2.8 L PFSH All Active Problems (Updated 04/09/24 @ 22:32 by KVNG Spicer) CHF (congestive heart failure) (Chronic) Hyponatremia (Acute ~03/2023) History of GI bleed (Acute ~10/2022) Other and unspecified hyperlipidemia (Acute 11/19/12) Statin-controlled Essential hypertension (Chronic 07/13/14) History of stroke (Chronic ~2014) Occurred while taking ASA, so switch to Plavix Hypothyroidism (Chronic) Osteoporosis, unspecified (Chronic 11/19/12) Never treated with bisphosphonates per pt Carotid artery stenosis (Acute 07/11/11) R-sided endarterectomy; [facility] [place]; 2007 Medical History Anemia 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 Marla Nam Right eye Dr. Marla Nam left eye Extraction of cataract (12/21/15) Dr. Marla Nam Right eye Dr. Marla Nam left eye Carotid endarterectomy Family History Father , [place] at age 65. Heart disease Mother , cva at age 93. Stroke Social History Smoking/Tobacco Use Status: Never Smoking risk assessment performed?: Yes Alcohol Intake: former Drug use: Never Substance use type: does not use Adopted: No Caregiver/Support person: No Foster care: No Housing: house Number of Children: 2 number of grandchildren: 3 Current gender identity: female What is your relationship status?: Panel score (0-1 are the most socially isolated patients): 0 What type of physical activity do you participate in: walking and other Details: weights, squats, leg lifts Duration: 15-30 minutes/day Frequency: 5-6 times per week Seatbelt use: always Drive intox or ride w/intox tier truck driver: No Working smoke detector in home: Yes Fire extinguisher in home: Yes Carbon monox detector in home: Yes Do you feel safe at home: Yes Do you feel safe in your relationship?: Yes Victim of physical abuse: No Victim of emotional abuse: No Victim of sexual abuse: No Would you like helpful sources: No Additional Social history: pt lives in a house, daughter lives in the other side of home. Time Spent with Patient Time Spent with Patient: <45 minutes Time was spent: preparing to see the patient(eg.review tests), obtaining and/or reviewing separately otained hiistory, ordering medications,tests, procedures, referring, communicating with other health manager respiratory care, indepentently interpreting results, counseling the patient and care coordination
--- NOTE | 2024-04-10 15:55 | PDOC.HHF2F ---
Home Health Referral Home Health Orders Clinical synopsis of why skilled professionals are needed: HFrEF Registered Nurse: Check all that apply Instruct on new or changed medication(s)/assess compliance: Ordered Physical Therapist: Check all that apply Increase strength & endurance for safe mobility at home: Ordered To design/establish home maintenance program: Ordered Fall reduction therapy program for patient with history of frequent falls: Ordered Home safety evaluation and teaching/gait training including stair management (if applicable): Ordered Other: Left knee should be maintained straight (in full extension) for 2 weeks followed by progressive seated flexion with goal 0-90 degrees around week 6 post-injury. Weight bearing in full extension-only with knee immobilizer for 6 weeks. Knee brace should be removed or loosened while resting to protect skin. SANGITA bandage could be applied over knee to improve fit and protect skin. Encourage ankle pumps and wiggle toes to improve circulation, prevent stiffness, and minimize risk blood clot. Isometric quad sets could be performed as well with knee in full extension. Left wrist velcro brace for protection about 6 weeks. Should remove or loosen wrist brace while resting to protect skin. Encourage early range of motion to fingers, thumb, and wrist to prevent stiffness. Weight bearing as tolerated through the Left wrist with brace on (in order to improve mobility and minimize fall risk). Occupational Therapist: Evaluate and treat for patient unable to perform ADL/IADL/self-care: Ordered Home Bound Status Requires the aid of supportive device (check all that apply): Cane Encounter Date and Reason: I certify that a FTF encounter for this patient was performed on April 10, 2024 and that such encounter was related to the primary reason the patient requires home health services. The encounter was conducted in the following manner: By me as the certifying physician, ASSOCIATE PROFESSOR OF PHILOSOPHY, PA or By an inpatient physician, ASSOCIATE PROFESSOR OF PHILOSOPHY or PA during an inpatient stay who communicated findings to me, Certification And Authentication I certify that I composed the above information based on my clinical judgment relating to this patient's medical condition and, if applicable, clinical findings communicated to me by the NPP or inpatient physician who performed the FTF encounter. Name of Provider that will be monitoring home health services: Kaci Leigh
--- NOTE | 2024-04-10 15:58 | PDOC.CMDIS ---
Date of service: 04/10/24 Time of Service: 12:00 LACE Index Scoring Tool Questions: Length of Stay (in days): 2 Was the patient admitted via the E.D.?: Yes Comorbidities: Cerebrovascular Disease and Congestive Heart Failure E.D. Visits: 1 Answers: Total Score: 9 Risk of Readmission: Low Risk Care Management Discharge Plan Reason for Hospitalization: acute exacerbation of CHF Discharge Plan: Dot was discharged today with some new medication orders and new HH services for RN/PT/OT. She was pleased to know she would be getting these services. Dot will f/u with her community providers and continue per her plan of care. She was driven home today by her son. Patient/Family Education Needs: Review of discharge instructions, activity, limitations, f/u plan and ask me 3. Services Needed at Discharge: Home Health Care Services (new PT/OT/RN [facility] notified and paper work sent.) SDOH Health Related Social Needs: No Data to Display
== END 2024-04-10 12:52 | disposition home or self-care (01) ==
LOC: ER 14:38 → MS 16:34
PROVIDERS: Family Medicine; Hospitalist; Admitting Provider Family Medicine; Emergency Provider Physician Assistant; PCP Nurse Practitioner Adult Health; Visit Provider Family Medicine
DX: I16.0 Hypertensive urgency (principal); I11.0 Hypertensive heart disease with heart failure; I50.33 Acute on chronic diastolic (congestive) heart failure; F41.9 Anxiety disorder, unspecified; E03.9 Hypothyroidism, unspecified; Z86.73 Personal history of transient ischemic attack (TIA), and cerebral infarction without residual deficits; R06.02 Shortness of breath; I08.0 Rheumatic disorders of both mitral and aortic valves; D64.9 Anemia, unspecified; I73.00 Raynaud's syndrome without gangrene; Z79.899 Other long term (current) drug therapy
CPT/HCPCS: 00123; 36415; 71275; 80053; 80061; 93005; 93306; 96374; 96376; 99285; 83735; 83880; 84443; 84484; 85025; 93010; 99222; 99231; 99239; G0378; J1940

== ENCOUNTER 2024-05-04 16:56 | Outpatient (REF) | payer MEDICARE, MEDICAID, SELFPAY ==
[2024-05-04 14:23] LABS: Anion Gap 8.5 mmol/L (3-11); BUN 36 mg/dL (7-18); CO2 26.5 mmol/L (21.0-32.0); CREATININE 0.8 mg/dL (0.55-1.02); Calcium 9.2 mg/dL (8.5-10.1); Chloride 100 mmol/L (98-107); Estimated GFR 70.83 (mL/min/1.73m2); Glucose 97 mg/dL (74-106); NT-proBNP 1142 pg/mL (<300); Potassium 5.5 mmol/L (3.5-5.1); Sodium 135 mmol/L (136-145); TSH (W/Ref FT4) 2.94 uIU/mL (0.36-3.74)
== END 2024-05-04 16:57 | disposition home or self-care (01) ==
LOC: LBN 16:56
PROVIDERS: PCP Nurse Practitioner Adult Health; Visit Provider Nurse Practitioner Adult Health
DX: I10 Essential (primary) hypertension (principal); I50.9 Heart failure, unspecified
CPT/HCPCS: 80048; 83880; 84443

== ENCOUNTER 2024-05-25 15:15 | Outpatient (REF) | payer MEDICARE, MEDICAID, SELFPAY ==
[2024-05-25 16:16] LABS: Anion Gap 4.1 mmol/L (3-11); BUN 22 mg/dL (7-18); CO2 33.9 mmol/L (21.0-32.0); CREATININE 0.7 mg/dL (0.55-1.02); Chloride 103 mmol/L (98-107); Estimated GFR 83.13 (mL/min/1.73m2); Glucose 84 mg/dL (74-106); NT-proBNP 1790 pg/mL (<300); Potassium 4.6 mmol/L (3.5-5.1); Sodium 141 mmol/L (136-145)
== END 2024-05-25 15:16 | disposition home or self-care (01) ==
LOC: LBN 15:15
PROVIDERS: PCP Nurse Practitioner Adult Health; Visit Provider Nurse Practitioner Adult Health
DX: I10 Essential (primary) hypertension (principal); I50.31 Acute diastolic (congestive) heart failure
CPT/HCPCS: 80048; 83880

== ENCOUNTER 2024-06-22 14:58 | Outpatient (REF) | payer MEDICARE, MEDICAID, SELFPAY ==
[2024-06-22 12:59] LABS: Anion Gap 6.8 mmol/L (3-11); BUN 22 mg/dL (7-18); CO2 31.2 mmol/L (21.0-32.0); CREATININE 0.8 mg/dL (0.55-1.02); Calcium 9.1 mg/dL (8.5-10.1); Chloride 102 mmol/L (98-107); Estimated GFR 70.83 (mL/min/1.73m2); Glucose 75 mg/dL (74-106); NT-proBNP 1388 pg/mL (<300); Potassium 4.7 mmol/L (3.5-5.1); Sodium 140 mmol/L (136-145)
== END 2024-06-22 14:59 | disposition home or self-care (01) ==
LOC: LBN 14:58
PROVIDERS: PCP Nurse Practitioner Adult Health; Visit Provider Nurse Practitioner Adult Health
DX: I50.31 Acute diastolic (congestive) heart failure (principal)
CPT/HCPCS: 80048; 83880